=== PATIENT | male | born 1970 | race Caucasian/White ===

== ENCOUNTER → 2017-04-15 16:10 | Outpatient (CLI) | payer OTHER, SELFPAY ==
[2017-04-15 18:14] LABS: Absolute Lymphocyte Count 2.82 X10^3/ul (0.83-4.51); Absolute Neutrophil Count 4.1 X10^3/uL (2.0-7.7); Basophil# 0.06 X10^3/uL; Basophil% 0.8 % (0-1); Eosinophil# 0.14 X10^3/uL; Eosinophils% 1.8 % (0-5); Hemoglobin 14.8 g/dl (13.0-16.5); Lymphocyte # 2.82 X10^3/ul (4.0); Lymphocyte % 36.4 % (19-41); Mean Corp Hgb Conc 32.9 g/gl (32-36); Mean Corpuscular Hgb 29.1 pg (27.0-32.0); Mean Corpuscular Volume 88.6 fL (80-94); Mean Platelet Vol. 9.7 fl (6.2-12.0); Monocyte# 0.59 X10^3/uL; Monocyte% 7.6 % (0-10); Neutrophil # 4.11 X10^3/uL (2.7-7.7); Platelet Count 248 K/mm3 (150-450); Red Blood Count 5.08 M/mm3 (4.6-6.2); White Blood Count 7.8 K/mm3 (4.4-11.0)
[2017-04-15 18:17] LABS: POSITIVE COUNT NO; POSITIVE DIFFERENTIAL NO; POSITIVE MORPHOLOGY NO
[2017-04-15 18:24] LABS: AST(SGOT) 23 U/L (15-37); Alanine Aminotransfer ALT/SGPT 43 U/L (16-61); Albumin, Serum 4.2 g/dL (3.2-5.0); Alkaline Phosphatase 79 U/L (45-117); Anion Gap 7 (5-15); BUN 12 mg/dL (7-18); Calcium,Total 9.1 mg/dL (8.5-10.1); Chloride 105 mmol/L (98-107); EST Glomerular Filtration Rate 84 mL/min (>60); Est Glom Filt Rate - Afr Amer 102 mL/min (>60); Globulin 4.1 g/dL (2.2-4.2); Glucose 81 mg/dL (74-106); Potassium 4.4 mmol/L (3.5-5.1); Protein, Total 8.3 g/dL (6.4-8.2); Sodium Level 140 mmol/L (136-145)
== END ==
PROVIDERS: Family Provider Family Medicine; PCP Family Medicine; Visit Provider Internal Medicine Rheumatology
DX: M06.4 Inflammatory polyarthropathy (principal); I10 Essential (primary) hypertension; M21.40 Flat foot [pes planus] (acquired), unspecified foot
CPT/HCPCS: 36415; 80053; 85025

== ENCOUNTER → 2017-07-26 14:18 | Outpatient (CLI) | payer OTHER, SELFPAY ==
--- NOTE | 2017-07-26 14:19 | RAD_ITS ---
STUDY: X-RAY - THORACIC SPINE REASON FOR EXAM: Male, 47 years old. Right side, mid back pain, TECHNIQUE: 3 view(s) of the thoracic spine were obtained. COMPARISON: None. FINDINGS: Normal kyphosis of the thoracic spine. There is no substantial scoliosis. Normal thoracic vertebrae and endplates. Normal disc space heights. The soft tissue structures are unremarkable. RAD/Thoracic Spine 3 Views IMPRESSION: Normal x-ray examination of the thoracic spine. Electronically Signed: Lili Washington MD at 15:22 EDT Tel , Service support ,
== END ==
PROVIDERS: Family Provider Family Medicine; PCP Family Medicine; Visit Provider Family Medicine
DX: R10.9 Unspecified abdominal pain (principal); M51.34 Other intervertebral disc degeneration, thoracic region
CPT/HCPCS: 72072

== ENCOUNTER → 2017-08-04 07:41 | Outpatient (CLI) | payer OTHER, SELFPAY ==
--- NOTE | 2017-08-04 07:50 | US_ITS ---
STUDY: RENAL ULTRASOUND - COMPLETE REASON FOR EXAM: Male, 47 years old. Flank pain TECHNIQUE: Ultrasound evaluation of the kidneys was performed with real-time and static aguilar-scale imaging. COMPARISON: None. FINDINGS: RIGHT KIDNEY: Normal location of the right kidney, which is normal in size. The right kidney measures 12.4 x 5.7 x 4.9 cm. There is a normal cortex of the right kidney. The renal cortex measures 1.8 cm. There is no right renal mass or cyst. There are no right renal calculi. There is no right hydronephrosis. DISTAL RIGHT URETER: There is non-visualization of the distal right ureter. There is no demonstrated right ureterovesical junction calculus. There is a visualized right ureteral jet. LEFT KIDNEY: Normal location of the left kidney, which is normal in size. The left kidney measures 11.9 x 5.5 x 6.4 cm. There is a normal cortex of the left kidney. The renal cortex measures 2 cm. There is no left renal mass or cyst. There is a 5 mm nonobstructing lower pole renal stone. There is no left hydronephrosis. DISTAL LEFT URETER: There is non-visualization of the distal left ureter. There is no demonstrated left ureterovesical junction calculus. There is a visualized left ureteral jet. BLADDER: The distended urinary bladder has a volume of 424 ml. The empty urinary bladder has a volume of 16 ml. There is a normal wall thickness of the distended urinary bladder. There is no demonstrated mass within the urinary bladder. There are no demonstrated bladder calculi. US/Kidney and Bladder IMPRESSION: No hydronephrosis. There is a 5 mm nonobstructing left renal stone. Bilateral ureteral jets identified. Electronically Signed: Adam Orta DO at 21:05 EDT , Service support ,
== END ==
PROVIDERS: Family Provider Family Medicine; PCP Family Medicine; Visit Provider Family Medicine
DX: R10.9 Unspecified abdominal pain (principal)
CPT/HCPCS: 76770

== ENCOUNTER → 2017-10-01 08:24 | Outpatient (CLI) | payer OTHER, SELFPAY ==
[2017-10-01 13:00] LABS: Absolute Lymphocyte Count 2.01 X10^3/ul (0.83-4.51); Absolute Neutrophil Count 4.1 X10^3/uL (2.0-7.7); Basophil# 0.04 X10^3/uL; Basophil% 0.6 % (0-1); Eosinophil# 0.14 X10^3/uL; Eosinophils% 2.1 % (0-5); Hematocrit 43.3 % (40-54); Hemoglobin 14.4 g/dl (13.0-16.5); Lymphocyte # 2.01 X10^3/ul (4.0); Lymphocyte % 29.6 % (19-41); Mean Corp Hgb Conc 33.3 g/gl (32-36); Mean Corpuscular Hgb 29.3 pg (27.0-32.0); Monocyte# 0.43 X10^3/uL; Monocyte% 6.3 % (0-10); Neutrophil # 4.13 X10^3/uL (2.7-7.7); Neutrophil % 60.7 % (47-70); Platelet Count 255 K/mm3 (150-450); RBC Distribution Width SD 41.3 fl (35.1-43.9); Red Blood Count 4.92 M/mm3 (4.6-6.2); White Blood Count 6.8 K/mm3 (4.4-11.0)
[2017-10-01 13:05] LABS: POSITIVE COUNT NO; POSITIVE DIFFERENTIAL NO; POSITIVE MORPHOLOGY NO
[2017-10-01 13:14] LABS: AST(SGOT) 22 U/L (15-37); Alanine Aminotransfer ALT/SGPT 36 U/L (16-61); Albumin, Serum 3.9 g/dL (3.2-5.0); Alkaline Phosphatase 75 U/L (45-117); Anion Gap 8 (5-15); BUN 24 mg/dL (7-18); BUN/Creat Ratio 21.2 RATIO (10-20); Chloride 106 mmol/L (98-107); Creatinine, Serum 1.13 mg/dL (0.70-1.30); EST Glomerular Filtration Rate 73 mL/min (>60); Est Glom Filt Rate - Afr Amer 89 mL/min (>60); Glucose 114 mg/dL (74-106); Potassium 4.1 mmol/L (3.5-5.1); Protein, Total 7.9 g/dL (6.4-8.2); Sodium Level 141 mmol/L (136-145)
== END ==
PROVIDERS: PCP Family Medicine; Visit Provider Internal Medicine Rheumatology
DX: M06.4 Inflammatory polyarthropathy (principal); M21.40 Flat foot [pes planus] (acquired), unspecified foot; I10 Essential (primary) hypertension
CPT/HCPCS: 36415; 80053; 85025

== ENCOUNTER 2018-01-17 06:26 | Day surgery (SDC) | payer OTHER, SELFPAY ==
[2018-01-17 06:57] VITALS: BP 152/84; PULSE 75; TEMP 36.7; O2SAT 100; BMI 41.3
[2018-01-17 07:46] VITALS: BP 104/63; BP 152/84; PULSE 69; RESP 16; TEMP 36.1; O2SAT 99
--- NOTE | 2018-01-17 07:47 | OP.ENDO_ITS ---
Patient Name: Jonh Velasquez Procedure Date: 01/17/2018 7:10 AM Date of : 1970 Age: 47 Procedure: Colonoscopy Indications: Rectal bleeding Providers: Andres Hui MD Medicines: See the Anesthesia note for documentation of the administered medications Patient Profile: Last Colonoscopy: none. The patient's first colonoscopy is today. Complications: No immediate complications. Procedure: Pre-Anesthesia Assessment: - Prior to the procedure, a History and Physical was performed, and patient medications and allergies were reviewed. The patient's tolerance of previous anesthesia was also reviewed. The risks and benefits of the procedure and the sedation options and risks were discussed with the patient. All questions were answered, and informed consent was obtained. Prior Anticoagulants: The patient has taken no previous anticoagulant or antiplatelet agents. ASA Grade Assessment: III - A patient with severe systemic disease. After reviewing the risks and benefits, the patient was deemed in satisfactory condition to undergo the procedure. After I obtained informed consent, the scope was passed under direct vision. Throughout the procedure, the patient's blood pressure, pulse, and oxygen saturations were monitored continuously. The colonoscope was introduced through the anus and advanced to the cecum, identified by appendiceal orifice and ileocecal valve. The colonoscopy was performed without difficulty. The patient tolerated the procedure well. The quality of the bowel preparation was good. Scope In: 7:31:18 AM Scope Withdrawal Time 0 hours 7 minutes 23 seconds Scope Out: 7:41:45 AM Total Procedure Duration Time 0 hours 10 minutes 27 seconds Findings: The perianal and digital rectal examinations were normal. Pertinent negatives include normal sphincter tone. No sign of a rectal fissure. Non-bleeding internal hemorrhoids were found during retroflexion. The hemorrhoids were mild and small. The exam was otherwise without abnormality. Impression: - Non-bleeding internal hemorrhoids. - The examination was otherwise normal. - No specimens collected. Recommendation: - Discharge patient to home. - Resume previous diet. - Continue present medications. - Repeat colonoscopy in 10 years for screening purposes. - Return to primary care physician PRN. Procedure Code(s): --- Professional --- 08554, Colonoscopy, flexible; diagnostic, including collection of specimen(s) by brushing or washing, when performed (separate procedure) Diagnosis Code(s): --- Professional --- K64.8, Other hemorrhoids K62.5, Hemorrhage of anus and rectum CPT copyright 2017 [employer]. All rights reserved. The codes documented in this report are preliminary and upon automatic spooler operator review may be revised to meet current compliance requirements. MD Andres Montgomery MD 01/17/2018 7:46:45 AM This report has been signed electronically. Number of Addenda: 0 Note Initiated On: 01/17/2018 7:10 AM
[2018-01-17 07:50] VITALS: BP 108/64; BP 152/84; PULSE 70; RESP 16; O2SAT 94
[2018-01-17 07:55] VITALS: BP 109/70; BP 152/84; PULSE 74; RESP 16; O2SAT 95
[2018-01-17 08:00] VITALS: BP 108/62; BP 152/84; PULSE 70; RESP 16; TEMP 36.6; O2SAT 94
[2018-01-17 08:09] VITALS: BP 152/84
== END 2018-01-17 08:19 | disposition home or self-care (01) ==
LOC: EN 06:28 → AC 06:28
PROVIDERS: Family Provider Family Medicine; PCP Family Medicine; Referring Provider Surgery; Visit Provider Surgery
PROC: 0DJD8ZZ Inspection of Lower Intestinal Tract, Via Natural or Artificial Opening Endoscopic (ICD-10-PCS; CPT 45378; principal; 2018-01-17 07:25)
DX: K62.5 Hemorrhage of anus and rectum (principal); K64.8 Other hemorrhoids; I10 Essential (primary) hypertension
CPT/HCPCS: 45378; J7120

== ENCOUNTER → 2018-04-28 09:08 | Outpatient (CLI) | payer OTHER, SELFPAY ==
[2018-04-28 12:03] LABS: Absolute Lymphocyte Count 1.25 X10^3/ul (0.83-4.51); Absolute Neutrophil Count 2.1 X10^3/uL (2.0-7.7); Basophil# 0.01 X10^3/uL; Basophil% 0.3 % (0-1); Eosinophil# 0.02 X10^3/uL; Eosinophils% 0.5 % (0-5); Hematocrit 46.7 % (40-54); Hemoglobin 14.9 g/dl (13.0-16.5); Lymphocyte # 1.25 X10^3/ul (4.0); Lymphocyte % 33.1 % (19-41); Mean Corp Hgb Conc 31.9 g/gl (32-36); Mean Corpuscular Volume 87.6 fL (80-94); Mean Platelet Vol. 10.2 fl (6.2-12.0); Monocyte# 0.44 X10^3/uL; Monocyte% 11.6 % (0-10); Neutrophil # 2.05 X10^3/uL (2.7-7.7); Neutrophil % 54.2 % (47-70); Platelet Count 178 K/mm3 (150-450); RBC Distribution Width CV 13.2 % (11.6-14.6); Red Blood Count 5.33 M/mm3 (4.6-6.2); White Blood Count 3.8 K/mm3 (4.4-11.0)
[2018-04-28 12:04] LABS: POSITIVE COUNT NO; POSITIVE DIFFERENTIAL NO; POSITIVE MORPHOLOGY NO
[2018-04-28 12:22] LABS: ALB/GLOB Ratio 0.9 RATIO (0.9-2.4); AST(SGOT) 28 U/L (15-37); Alanine Aminotransfer ALT/SGPT 32 U/L (16-61); Albumin, Serum 3.8 g/dL (3.2-5.0); Alkaline Phosphatase 77 U/L (45-117); Anion Gap 11 (5-15); BUN 15 mg/dL (7-18); BUN/Creat Ratio 13.8 RATIO (10-20); Calcium,Total 8.6 mg/dL (8.5-10.1); Chloride 103 mmol/L (98-107); Creatinine, Serum 1.09 mg/dL (0.70-1.30); EST Glomerular Filtration Rate 76 mL/min (>60); Est Glom Filt Rate - Afr Amer 92 mL/min (>60); Globulin 4.3 g/dL (2.2-4.2); Glucose 91 mg/dL (74-106); Potassium 3.7 mmol/L (3.5-5.1); Protein, Total 8.1 g/dL (6.4-8.2); Sodium Level 138 mmol/L (136-145)
== END ==
PROVIDERS: Family Provider Family Medicine; PCP Family Medicine; Visit Provider Internal Medicine Rheumatology
DX: M06.4 Inflammatory polyarthropathy (principal); M21.40 Flat foot [pes planus] (acquired), unspecified foot; I10 Essential (primary) hypertension
CPT/HCPCS: 36415; 80053; 85025

== ENCOUNTER → 2018-10-13 08:27 | Outpatient (CLI) | payer OTHER, SELFPAY ==
[2018-10-13 12:15] LABS: Absolute Lymphocyte Count 1.84 X10^3/uL (0.83-4.51); Absolute Neutrophil Count 2.7 X10^3/uL (2.0-7.7); Basophil# 0.03 X10^3/uL; Basophil% 0.6 % (0-1); Eosinophil# 0.09 X10^3/uL; Eosinophils% 1.7 % (0-5); Lymphocyte # 1.84 X10^3/ul (4.0); Lymphocyte % 35.7 % (19-41); Mean Corp Hgb Conc 33.3 g/dL (32-36); Mean Corpuscular Hgb 29.2 pg (27.0-32.0); Mean Corpuscular Volume 87.7 fL (80-94); Mean Platelet Vol. 10.3 fl (6.2-12.0); Monocyte# 0.43 X10^3/uL; Monocyte% 8.3 % (0-10); NRBC Flagged by Analyzer 0 % (0-5); Neutrophil # 2.74 X10^3/uL (2.7-7.7); Neutrophil % 53.1 % (47-70); Platelet Count 193 K/mm3 (150-450); RBC Distribution Width CV 12.7 % (11.6-14.6); RBC Distribution Width SD 40.8 fl (35.1-43.9); Red Blood Count 5.13 M/mm3 (4.6-6.2); White Blood Count 5.2 K/mm3 (4.4-11.0)
[2018-10-13 12:29] LABS: ALB/GLOB Ratio 1.1 RATIO (0.9-2.4); AST(SGOT) 23 U/L (15-37); Alanine Aminotransfer ALT/SGPT 38 U/L (16-61); Albumin, Serum 4.1 g/dL (3.2-5.0); Alkaline Phosphatase 79 U/L (45-117); Anion Gap 7 (5-15); BUN 18 mg/dL (7-18); Calcium,Total 9.4 mg/dL (8.5-10.1); Chloride 105 mmol/L (98-107); EST Glomerular Filtration Rate 84 mL/min (>60); Est Glom Filt Rate - Afr Amer 102 mL/min (>60); Globulin 3.7 g/dL (2.2-4.2); Glucose 94 mg/dL (74-106); Potassium 4.1 mmol/L (3.5-5.1); Protein, Total 7.8 g/dL (6.4-8.2); Sodium Level 139 mmol/L (136-145)
== END ==
PROVIDERS: Family Provider Family Medicine; PCP Family Medicine; Visit Provider Internal Medicine Rheumatology
DX: M06.4 Inflammatory polyarthropathy (principal); M21.40 Flat foot [pes planus] (acquired), unspecified foot; I10 Essential (primary) hypertension
CPT/HCPCS: 36415; 80053; 85025

== ENCOUNTER → 2019-04-03 14:15 | Outpatient (CLI) | payer OTHER, SELFPAY ==
[2019-04-03 17:20] LABS: Absolute Lymphocyte Count 2.37 X10^3/uL (0.83-4.51); Absolute Neutrophil Count 4.5 X10^3/uL (2.0-7.7); Basophil# 0.05 X10^3/uL; Basophil% 0.7 % (0-1); Eosinophils% 1.3 % (0-5); Hematocrit 44.7 % (40-54); Hemoglobin 14.6 g/dL (13.0-16.5); Lymphocyte # 2.37 X10^3/ul (4.0); Lymphocyte % 31.5 % (19-41); Mean Corp Hgb Conc 32.7 g/dL (32-36); Mean Corpuscular Hgb 28.7 pg (27.0-32.0); Mean Corpuscular Volume 87.8 fL (80-94); Mean Platelet Vol. 9.6 fl (6.2-12.0); Monocyte# 0.45 X10^3/uL; NRBC Flagged by Analyzer 0 % (0-5); Neutrophil # 4.54 X10^3/uL (2.7-7.7); Neutrophil % 60.2 % (47-70); Platelet Count 243 K/mm3 (150-450); RBC Distribution Width CV 12.4 % (11.6-14.6); RBC Distribution Width SD 39.6 fl (35.1-43.9); Red Blood Count 5.09 M/mm3 (4.6-6.2); White Blood Count 7.5 K/mm3 (4.4-11.0)
[2019-04-03 17:49] LABS: ALB/GLOB Ratio 1.1 RATIO (0.9-2.4); AST(SGOT) 20 U/L (15-37); Alanine Aminotransfer ALT/SGPT 35 U/L (16-61); Albumin, Serum 3.9 g/dL (3.2-5.0); Alkaline Phosphatase 74 U/L (45-117); Anion Gap 4 (5-15); BUN 14 mg/dL (7-18); BUN/Creat Ratio 13.5 RATIO (10-20); Calcium,Total 9.4 mg/dL (8.5-10.1); Chloride 105 mmol/L (98-107); Creatinine, Serum 1.04 mg/dL (0.70-1.30); EST Glomerular Filtration Rate 80 mL/min (>60); Est Glom Filt Rate - Afr Amer 97 mL/min (>60); Globulin 3.7 g/dL (2.2-4.2); Glucose 113 mg/dL (74-106); Potassium 3.8 mmol/L (3.5-5.1); Protein, Total 7.6 g/dL (6.4-8.2); Sodium Level 140 mmol/L (136-145)
== END ==
PROVIDERS: PCP Family Medicine; Visit Provider Internal Medicine Rheumatology
DX: M06.4 Inflammatory polyarthropathy (principal); M21.40 Flat foot [pes planus] (acquired), unspecified foot; I10 Essential (primary) hypertension
CPT/HCPCS: 36415; 80053; 85025

== ENCOUNTER → 2019-09-29 | Outpatient (CLI) | payer OTHER, SELFPAY ==
[2019-09-29 15:29] LABS: Absolute Lymphocyte Count 2.95 X10^3/uL (0.83-4.51); Absolute Neutrophil Count 4.7 X10^3/uL (2.0-7.7); Basophil# 0.08 X10^3/uL; Basophil% 0.9 % (0-1); Eosinophil# 0.12 X10^3/uL; Eosinophils% 1.4 % (0-5); Hematocrit 46.1 % (40-54); Hemoglobin 15.1 g/dL (13.0-16.5); Lymphocyte # 2.95 X10^3/ul (4.0); Lymphocyte % 34.2 % (19-41); Mean Corp Hgb Conc 32.8 g/dL (32-36); Mean Corpuscular Hgb 29.4 pg (27.0-32.0); Mean Corpuscular Volume 89.7 fL (80-94); Mean Platelet Vol. 9.7 fl (6.2-12.0); Monocyte# 0.67 X10^3/uL; Monocyte% 7.8 % (0-10); NRBC Flagged by Analyzer 0 % (0-5); Neutrophil # 4.74 X10^3/uL (2.7-7.7); Platelet Count 267 K/mm3 (150-450); RBC Distribution Width CV 12.9 % (11.6-14.6); RBC Distribution Width SD 41.8 fl (35.1-43.9); Red Blood Count 5.14 M/mm3 (4.6-6.2); White Blood Count 8.6 K/mm3 (4.4-11.0)
[2019-09-29 15:47] LABS: AST(SGOT) 22 U/L (15-37); Alanine Aminotransfer ALT/SGPT 41 U/L (16-61); Albumin, Serum 4.1 g/dL (3.2-5.0); Alkaline Phosphatase 73 U/L (45-117); Anion Gap 6 (5-15); BUN 16 mg/dL (7-18); BUN/Creat Ratio 15.5 RATIO (10-20); Calcium,Total 9.6 mg/dL (8.5-10.1); Chloride 102 mmol/L (98-107); Creatinine, Serum 1.03 mg/dL (0.70-1.30); EST Glomerular Filtration Rate 81 mL/min (>60); Est Glom Filt Rate - Afr Amer 98 mL/min (>60); Glucose 84 mg/dL (74-106); Potassium 4.2 mmol/L (3.5-5.1); Protein, Total 8.1 g/dL (6.4-8.2); Sodium Level 136 mmol/L (136-145)
== END | disposition home or self-care (01) ==
LOC: BFHLAB 13:07
PROVIDERS: PCP Family Medicine; Visit Provider Internal Medicine Rheumatology
DX: M06.4 Inflammatory polyarthropathy (principal); M21.40 Flat foot [pes planus] (acquired), unspecified foot; I10 Essential (primary) hypertension
CPT/HCPCS: 36415; 80053; 85025

== ENCOUNTER → 2019-10-27 | Outpatient (CLI) | payer OTHER, SELFPAY ==
--- NOTE | 2019-10-27 13:00 | RAD_ITS ---
HISTORY: dyspnea on exertion EXAM: XR Chest 2 Views: COMPARISON: January 08, 2016 FINDINGS: # of images incl. paperwork: 2 Lungs are clear. Heart is not enlarged. No acute osseous pathology perceived. Pulmonary vascularity is distinct. No effusions. RAD/Chest PA and Lateral IMPRESSION: Normal. at 0555 Reported and signed by: Sigifredo Razo MD Electronically Signed: Sigifredo Razo MD at 5:53 EDT Tel , Service support ,
== END | disposition home or self-care (01) ==
LOC: MTRAD 12:59
PROVIDERS: PCP Family Medicine; Referring Provider Family Medicine; Visit Provider Family Medicine
DX: R06.00 Dyspnea, unspecified (principal)
CPT/HCPCS: 71046

== ENCOUNTER → 2020-03-20 | Outpatient (CLI) | payer OTHER, SELFPAY | END | disposition home or self-care (01) | LOC: LABSPEC 13:34 | PROVIDERS: PCP Family Medicine; Visit Provider Surgery | DX: L02.212 Cutaneous abscess of back [any part, except buttock and flank] (principal) | CPT/HCPCS: 87070; 87205 ==

== ENCOUNTER 2020-04-02 12:46 | Day surgery (SDC) | payer OTHER, SELFPAY ==
[2020-04-02] VITALS (7 sets, daily range): BP systolic 84–128; BP diastolic 40–80; PULSE 69–80; RESP 16–18; TEMP 36.1–36.6; O2SAT 94–100; BMI 41.8
--- NOTE | 2020-04-02 06:36 | HP_ITS ---
Intake Intake Visit Reasons: F/U SEBACEOUS CYST Chief Complaint: wound check/ packing change [employer] Operator Required: No Is patient in pain?: No Allergies No Known Allergies Allergy (Verified 03/29/20 15:26) Subjective Details: Patient still has drainage from his back abscess with purulence Objective Details: The patient has inflammation around the back abscess with purulent drainage and the patient still has packing in place. Assessment & Plan Problems 1. Infected sebaceous cyst L72.3; L08.9 Plan The patient has an infected sebaceous cyst of the back. After incision and drainage and packing the patient still has purulent drainage and erythema. He did complete his dose of antibiotics. I would like to perform a formal incision and debridement and resection of the cyst. I discussed that I would do this in the operating room next week. I also discussed that I may pack the wound after excision and drainage. Patient understands the risks and is willing to proceed. Del Arauz MD Pager: [facility] [address] [place] [address], [address] [place] [address] Office: Coding Level of Care Code Off vis,est,level 2 Diagnoses Infected sebaceous cyst L72.3; L08.9 I have re-examined the patient. There are no clinical changes since date of exam.
[2020-04-02] MEDS: Lactated Ringers 1,000 ML 100 ML IV (13:22)
--- NOTE | 2020-04-02 14:30 | CYST_PTH ---
PATIENT: LYN SANCHEZ LOC: [facility] [place] U#:[id number] AGE/SX: 49/M ROOM: RE04/02/[address]: Dr. Del Arauz MD : 1970 BED: DIS: 04/02/2020 SPEC #: [id number] RECD: 04/03/20 07:27 STATUS: NICOLAS VERA #: [id number] RENÉ: 04/02/20 14:[address]: Del Arauz DEPT: SURGICAL PATHOLOGY RECD BY: Princess Bauer ENTERED: 04/03/20 08:07 SP TYPE: Cyst OTHR DR: Dr. Vikram Robles MD Tissues: CYST Procedures: Special Stain Group I Surgery Specimen Level IV AFB Stain (control) GMS Stain (control) HEADER OPERATION: Excision benign lesion subcutaneous back PRE-OP DIAGNOSIS: Infected sebaceous cyst, back TISSUE SUBMITTED: Sebaceous cyst, back MICROSCOPIC DIAGNOSIS Skin and soft tissue of back, excision: Granulation with associated acute and chronic inflammation. Fibrosis. Negative for acid-fast bacilli and fungal organisms. See comment. AM:sharla 04/04/2020 COMMENT AFB and GMS stains with matched controls were used in the evaluation of this case. MICROSCOPIC DESCRIPTION Slides are reviewed. GROSS DESCRIPTION Received in fixative is one container labeled with the patient's name and designated sebaceous cyst back. The specimen consists of an irregular fragment of yellow fatty tissue measuring 2.6 x 1.7 x 1 cm. The external surface is inked and the specimen is serially sectioned to reveal homogenous yellow cut surfaces with focal chalky, yellow discoloration. The specimen is serially sectioned and totally submitted in two cassettes. / AM:sharla 04/03/20 TC:2 CPT: 09332, 24548 x2
[2020-04-02] MEDS: Cefazolin 2 GM in 0.9% Normal Saline 100 ML IV (14:41)
[2020-04-02] MEDS: Bupivacaine Mpf 0.5% 30 ML VIAL (14:50)
--- NOTE | 2020-04-02 15:13 | PCM.OPRPT ---
Problem List (1) Infected cyst of skin Status: Acute Report of Operation Date of Procedure: 04/02/20 Pre-Operative Diagnosis: Infected cyst of the back Post-Operative Diagnosis: Same Surgery/Procedure Performed:: Excision of infected back cyst with packing Specimen's removed: Back cyst Description of Procedure: Patient was brought back to the operating room and MAC anesthesia was induced. The back was prepped and draped in usual sterile fashion. The packing was removed from the abscess cavity. The skin around the prior incision was anesthetized with local anesthetic. A scalpel was used to make an elliptical incision around the prior incision and this was deepened to the subcutaneous tissue. The area was retracted and using electrocautery the cyst was dissected free from the surrounding tissue. The cavity was irrigated and suctioned dry and cautery was used to maintain hemostasis. There appeared to be healthy tissue all around and all of the infected inflamed tissue was removed. The cavity was packed with 1 inch iodoform gauze and dressed. Patient tolerated the procedure well and was brought back in stable condition. Grafts/Implants Used: 1 iodoform gauze packing
--- NOTE | 2020-04-02 15:15 | DCINST_ITS ---
- Discharge Diagnoses Current Active Problems: Current Active and Chronic Problems (Last Reviewed 03/20/20 @ 08:45 by Cordelia Bertrand) Infected cyst of skin (Acute) You will use the following diet at home:: Regular Your food should be the consistency of: Regular Your liquids should be the consistency of: Regular/Thin Discharge Activity: Return to Normal Activity, May Shower Call your doctor if your incision/area has: Continuous Slow Oozing, Sudden Increased Bleeding, Increased Pain/ Swelling, Increased Redness, Foul Smelling Discharge, Swelling at the incision site Call your doctor if you observe: Fever of 101 or Higher Remove Dressing in (days):: 2 - Remove dressing and packing in 2 days unless saturated, if so change earlier Additional Dressing/Incision Instructions:: Remove or change the dressing in 2 days and remove the packing in 2 to 3 days. Change dressings as needed Allergies/Adverse Reactions: Allergies No Known Allergies Allergy (Verified 03/29/20 15:26) Medications to take at Discharge hydrochlorothiazide 12.5 mg tablet 12.5 mg PO DAILY 12/24/17 lisinopril 40 mg tablet 40 mg PO DAILY 12/24/17 Hydroxychloroquine [Plaquenil] 400 mg PO DAILY 01/14/18 allopurinol 100 mg tablet 100 mg PO DAILY tab 03/20/20 Amoxicillin/Potassium Clav [Augmentin 875-125 Tablet] 1 ea PO BID #14 tab 04/02/20 Oxycodone HCl/Acetaminophen [Percocet 5-325 mg Tablet] 1 - 2 tab PO Q6H PRN PRN 5 Days #20 tablet 04/02/20 The following prescriptions were given: Amoxicillin/Potassium Clav [Augmentin 875-125 Tablet] 1 ea PO BID #14 tab Transmission Status: Pending to [facility] Oxycodone HCl/Acetaminophen [Percocet 5-325 mg Tablet] 1 - 2 tab PO Q6H PRN PRN 5 Days #20 tablet PRN Reason: Pain Score 4-10/10 Transmission Status: Sent to [facility] Primary Care Physician: Vikram Robles MD [Primary Care Provider] - Test Results: Test results from this visit will be discussed in further detail at your follow- up appointment, if applicable. Please Follow Up With: Del Arauz MD When: Please call to schedule 1 week follow up appointment. [phone]
[2020-04-02] MEDS: oxyCODONE 5 MG Tablet 10 MG PO (16:04)
[2020-04-02] MEDS: Acetaminophen 325 MG Tablet 650 MG PO (16:04)
== END 2020-04-02 16:15 | disposition home or self-care (01) ==
LOC: SDC 12:47 → AC 12:51
PROVIDERS: PCP Family Medicine; Referring Provider Surgery; Visit Provider Surgery
PROC: (CPT 11403; principal; 2020-04-02 14:20)
DX: L72.3 Sebaceous cyst (principal); L90.5 Scar conditions and fibrosis of skin; L08.9 Local infection of the skin and subcutaneous tissue, unspecified; I10 Essential (primary) hypertension; Z79.899 Other long term (current) drug therapy; Z20.822 Contact with and (suspected) exposure to COVID-19
CPT/HCPCS: 11403; 87426; 88304; 88305; 88312; C9803; J7120; J2405

== ENCOUNTER → 2020-04-05 10:47 | Outpatient (CLI) | payer OTHER, SELFPAY ==
[2020-04-02 13:17] VITALS: BMI 41.8
[2020-04-05 12:02] LABS: Absolute Neutrophil Count 3.5 X10^3/uL (2.0-7.7); Basophil# 0.04 X10^3/uL; Basophil% 0.7 % (0-1); Eosinophil# 0.09 X10^3/uL; Eosinophils% 1.5 % (0-5); Hematocrit 44.3 % (40-54); Hemoglobin 14.3 g/dL (13.0-16.5); Lymphocyte % 31.3 % (19-41); Mean Corp Hgb Conc 32.3 g/dL (32-36); Mean Corpuscular Volume 86.7 fL (80-94); Mean Platelet Vol. 9.8 fl (6.2-12.0); Monocyte% 8.2 % (0-10); NRBC Flagged by Analyzer 0 % (0-5); Neutrophil # 3.52 X10^3/uL (2.7-7.7); Platelet Count 261 K/mm3 (150-450); RBC Distribution Width CV 12.8 % (11.6-14.6); RBC Distribution Width SD 40.5 fl (35.1-43.9); Red Blood Count 5.11 M/mm3 (4.6-6.2); White Blood Count 6.1 K/mm3 (4.4-11.0)
[2020-04-05 12:42] LABS: ALB/GLOB Ratio 0.9 RATIO (0.9-2.4); AST(SGOT) 22 U/L (15-37); Alanine Aminotransfer ALT/SGPT 30 U/L (16-61); Albumin, Serum 3.8 g/dL (3.2-5.0); Alkaline Phosphatase 82 U/L (45-117); Anion Gap 7 (5-15); BUN 15 mg/dL (7-18); BUN/Creat Ratio 16.3 RATIO (10-20); Calcium,Total 9.3 mg/dL (8.5-10.1); Chloride 105 mmol/L (98-107); Creatinine, Serum 0.92 mg/dL (0.70-1.30); EST Glomerular Filtration Rate 92 mL/min (>60); Est Glom Filt Rate - Afr Amer 111 mL/min (>60); Globulin 4.1 g/dL (2.2-4.2); Glucose 91 mg/dL (74-106); Potassium 4.4 mmol/L (3.5-5.1); Protein, Total 7.9 g/dL (6.4-8.2); Sodium Level 137 mmol/L (136-145); Uric Acid 5.7 mg/dL (3.5-7.2)
== END ==
PROVIDERS: PCP Family Medicine; Visit Provider Internal Medicine Rheumatology
DX: I10 Essential (primary) hypertension (principal); M06.4 Inflammatory polyarthropathy; M21.40 Flat foot [pes planus] (acquired), unspecified foot
CPT/HCPCS: 36415; 80053; 84550; 85025

== ENCOUNTER → 2020-07-02 13:22 | Outpatient (CLI) | payer OTHER, SELFPAY ==
[2020-04-02 13:17] VITALS: BMI 41.8
[2020-07-02 15:00] LABS: Absolute Lymphocyte Count 1.73 X10^3/uL (0.83-4.51); Absolute Neutrophil Count 7.8 X10^3/uL (2.0-7.7); Basophil# 0.03 X10^3/uL; Basophil% 0.3 % (0-1); Eosinophil# 0.09 X10^3/uL; Eosinophils% 0.9 % (0-5); Hemoglobin 15.9 g/dL (13.0-16.5); Lymphocyte # 1.73 X10^3/ul (0.83-4.51); Lymphocyte % 16.8 % (19-41); Mean Corp Hgb Conc 32.4 g/dL (32-36); Mean Corpuscular Hgb 28.5 pg (27.0-32.0); Mean Corpuscular Volume 87.8 fL (80-94); Mean Platelet Vol. 9.9 fl (6.2-12.0); Monocyte# 0.66 X10^3/uL; Monocyte% 6.4 % (0-10); NRBC Flagged by Analyzer 0 % (0-5); Neutrophil # 7.77 X10^3/uL (2.7-7.7); Neutrophil % 75.3 % (47-70); Platelet Count 270 K/mm3 (150-450); RBC Distribution Width CV 13.2 % (11.6-14.6); RBC Distribution Width SD 42.7 fl (35.1-43.9); Red Blood Count 5.58 M/mm3 (4.6-6.2); White Blood Count 10.3 K/mm3 (4.4-11.0)
[2020-07-02 15:39] LABS: ALB/GLOB Ratio 1.2 RATIO (0.9-2.4); AST(SGOT) 23 U/L (15-37); Alanine Aminotransfer ALT/SGPT 34 U/L (16-61); Albumin, Serum 4.5 g/dL (3.2-5.0); Alkaline Phosphatase 93 U/L (45-117); Anion Gap 7 (5-15); BUN 17 mg/dL (7-18); BUN/Creat Ratio 17.5 RATIO (10-20); Calcium,Total 9.6 mg/dL (8.5-10.1); Chloride 102 mmol/L (98-107); Creatinine, Serum 0.97 mg/dL (0.70-1.30); EST Glomerular Filtration Rate 86 mL/min (>60); Est Glom Filt Rate - Afr Amer 105 mL/min (>60); Globulin 3.8 g/dL (2.2-4.2); Glucose 88 mg/dL (74-106); Potassium 4.1 mmol/L (3.5-5.1); Protein, Total 8.3 g/dL (6.4-8.2); Sodium Level 136 mmol/L (136-145)
== END ==
PROVIDERS: PCP Family Medicine; Referring Provider Internal Medicine Rheumatology; Visit Provider Internal Medicine Rheumatology
DX: M06.4 Inflammatory polyarthropathy (principal); M21.40 Flat foot [pes planus] (acquired), unspecified foot; I10 Essential (primary) hypertension
CPT/HCPCS: 36415; 80053; 85025

== ENCOUNTER 2021-03-13 08:27 | Outpatient (CLI) | payer OTHER, SELFPAY ==
[2021-03-13 10:22] LABS: Absolute Lymphocyte Count 1.99 X10^3/uL (0.83-4.51); Absolute Neutrophil Count 3.6 X10^3/uL (2.0-7.7); Basophil# 0.06 X10^3/uL; Basophil% 0.9 % (0-1); Eosinophil# 0.17 X10^3/uL; Eosinophils% 2.7 % (0-5); Hematocrit 46.4 % (40-54); Hemoglobin 15.4 g/dL (13.0-16.5); Lymphocyte # 1.99 X10^3/ul (0.83-4.51); Lymphocyte % 31.2 % (19-41); Mean Corp Hgb Conc 33.2 g/dL (32-36); Mean Corpuscular Hgb 29.2 pg (27.0-32.0); Mean Platelet Vol. 9.6 fl (6.2-12.0); Monocyte# 0.52 X10^3/uL; Monocyte% 8.2 % (0-10); NRBC Flagged by Analyzer 0 % (0-5); Neutrophil # 3.58 X10^3/uL (2.7-7.7); Neutrophil % 56.1 % (47-70); Platelet Count 260 K/mm3 (150-450); RBC Distribution Width CV 12.3 % (11.6-14.6); RBC Distribution Width SD 39.9 fl (35.1-43.9); Red Blood Count 5.27 M/mm3 (4.6-6.2); White Blood Count 6.4 K/mm3 (4.4-11.0)
[2021-03-13 10:49] LABS: AST(SGOT) 28 U/L (15-37); Alanine Aminotransfer ALT/SGPT 47 U/L (16-61); Alkaline Phosphatase 71 U/L (45-117); Anion Gap 9 (5-15); BUN 22 mg/dL (7-18); BUN/Creat Ratio 21.8 RATIO (10-20); Calcium,Total 9.5 mg/dL (8.5-10.1); Chloride 104 mmol/L (98-107); Creatinine, Serum 1.01 mg/dL (0.70-1.30); EST Glomerular Filtration Rate 82 mL/min (>60); Est Glom Filt Rate - Afr Amer 99 mL/min (>60); Glucose 112 mg/dL (74-106); Potassium 4.2 mmol/L (3.5-5.1); Sodium Level 138 mmol/L (136-145)
== END 2021-03-13 23:59 | disposition short-term general hospital (02) ==
LOC: MTLAB 08:29
PROVIDERS: PCP Family Medicine; Referring Provider Internal Medicine Rheumatology; Visit Provider Internal Medicine Rheumatology
DX: M06.4 Inflammatory polyarthropathy (principal); Z79.899 Other long term (current) drug therapy; M21.40 Flat foot [pes planus] (acquired), unspecified foot; I10 Essential (primary) hypertension
CPT/HCPCS: 36415; 80053; 85025

== ENCOUNTER → 2021-09-09 | Outpatient (CLI) | payer OTHER, SELFPAY ==
[2021-09-09 12:40] LABS: Absolute Lymphocyte Count 2.13 X10^3/uL (0.83-4.51); Absolute Neutrophil Count 3.9 X10^3/uL (2.0-7.7); Basophil# 0.06 X10^3/uL; Basophil% 0.9 % (0-1); Eosinophil# 0.11 X10^3/uL; Eosinophils% 1.6 % (0-5); Hematocrit 40.8 % (40-54); Hemoglobin 13.5 g/dL (13.0-16.5); Lymphocyte # 2.13 X10^3/ul (0.83-4.51); Lymphocyte % 31.8 % (19-41); Mean Corp Hgb Conc 33.1 g/dL (32-36); Mean Corpuscular Hgb 29.4 pg (27.0-32.0); Mean Corpuscular Volume 88.9 fL (80-94); Monocyte# 0.49 X10^3/uL; Monocyte% 7.3 % (0-10); NRBC Flagged by Analyzer 0 % (0-5); Neutrophil # 3.89 X10^3/uL (2.7-7.7); Neutrophil % 58.1 % (47-70); Platelet Count 220 K/mm3 (150-450); RBC Distribution Width CV 12.5 % (11.6-14.6); RBC Distribution Width SD 40.5 fl (35.1-43.9); Red Blood Count 4.59 M/mm3 (4.6-6.2); White Blood Count 6.7 K/mm3 (4.4-11.0)
[2021-09-09 13:00] LABS: AST(SGOT) 20 U/L (15-37); Alanine Aminotransfer ALT/SGPT 28 U/L (16-61); Albumin, Serum 3.7 g/dL (3.2-5.0); Alkaline Phosphatase 105 U/L (45-117); Anion Gap 4 (5-15); BUN 15 mg/dL (7-18); BUN/Creat Ratio 15.7 RATIO (10-20); Chloride 107 mmol/L (98-107); Creatinine, Serum 0.96 mg/dL (0.70-1.30); EST Glomerular Filtration Rate 88 mL/min (>60); Est Glom Filt Rate - Afr Amer 106 mL/min (>60); Globulin 3.6 g/dL (2.2-4.2); Glucose 104 mg/dL (74-106); Potassium 4.1 mmol/L (3.5-5.1); Protein, Total 7.3 g/dL (6.4-8.2); Sodium Level 138 mmol/L (136-145)
== END | disposition home or self-care (01) ==
LOC: MTLAB 09:52
PROVIDERS: PCP Family Medicine; Referring Provider Internal Medicine Rheumatology; Visit Provider Internal Medicine Rheumatology
DX: M06.4 Inflammatory polyarthropathy (principal); M21.40 Flat foot [pes planus] (acquired), unspecified foot; I10 Essential (primary) hypertension; Z79.899 Other long term (current) drug therapy
CPT/HCPCS: 36415; 80053; 85025

== ENCOUNTER → 2022-02-12 | Outpatient (CLI) | payer OTHER, SELFPAY ==
[2022-02-12 10:01] LABS: Absolute Lymphocyte Count 2.11 X10^3/uL (0.83-4.51); Absolute Neutrophil Count 3.2 X10^3/uL (2.0-7.7); Basophil# 0.06 X10^3/uL; Eosinophil# 0.19 X10^3/uL; Eosinophils% 3.1 % (0-5); Hematocrit 46.3 % (40-54); Hemoglobin 15.3 g/dL (13.0-16.5); Lymphocyte # 2.11 X10^3/ul (0.83-4.51); Lymphocyte % 34.8 % (19-41); Mean Corpuscular Hgb 29.4 pg (27.0-32.0); Mean Corpuscular Volume 88.9 fL (80-94); Mean Platelet Vol. 9.7 fl (6.2-12.0); Monocyte# 0.45 X10^3/uL; Monocyte% 7.4 % (0-10); NRBC Flagged by Analyzer 0 % (0-5); Neutrophil # 3.23 X10^3/uL (2.7-7.7); Neutrophil % 53.2 % (47-70); Platelet Count 252 K/mm3 (150-450); RBC Distribution Width CV 12.5 % (11.6-14.6); RBC Distribution Width SD 40.6 fl (35.1-43.9); Red Blood Count 5.21 M/mm3 (4.6-6.2); White Blood Count 6.1 K/mm3 (4.4-11.0)
[2022-02-12 10:44] LABS: ALB/GLOB Ratio 1.2 RATIO (0.9-2.4); AST(SGOT) 19 U/L (15-37); Alanine Aminotransfer ALT/SGPT 34 U/L (16-61); Albumin, Serum 4.1 g/dL (3.2-5.0); Alkaline Phosphatase 81 U/L (45-117); Anion Gap 7 (5-15); BUN 20 mg/dL (7-18); Calcium,Total 9.7 mg/dL (8.5-10.1); Chloride 104 mmol/L (98-107); Creatinine, Serum 1.05 mg/dL (0.70-1.30); EST Glomerular Filtration Rate 78 mL/min (>60); Est Glom Filt Rate - Afr Amer 95 mL/min (>60); Globulin 3.5 g/dL (2.2-4.2); Glucose 132 mg/dL (74-106); Potassium 4.1 mmol/L (3.5-5.1); Protein, Total 7.6 g/dL (6.4-8.2); Sodium Level 140 mmol/L (136-145)
== END | disposition home or self-care (01) ==
LOC: MTLAB 08:03
PROVIDERS: PCP Family Medicine; Referring Provider Internal Medicine Rheumatology; Visit Provider Internal Medicine Rheumatology
DX: M06.4 Inflammatory polyarthropathy (principal); M21.40 Flat foot [pes planus] (acquired), unspecified foot; I10 Essential (primary) hypertension; Z79.899 Other long term (current) drug therapy
CPT/HCPCS: 36415; 80053; 85025

== ENCOUNTER → 2022-07-31 | Outpatient (CLI) | payer OTHER, SELFPAY ==
[2022-07-31 10:17] LABS: Absolute Lymphocyte Count 2.28 X10^3/uL (0.83-4.51); Absolute Neutrophil Count 3.3 X10^3/uL (2.0-7.7); Basophil# 0.07 X10^3/uL; Basophil% 1.1 % (0-1); Eosinophil# 0.16 X10^3/uL; Eosinophils% 2.5 % (0-5); Hematocrit 45.5 % (40-54); Hemoglobin 14.6 g/dL (13.0-16.5); Lymphocyte # 2.28 X10^3/ul (0.83-4.51); Lymphocyte % 35.7 % (19-41); Mean Corp Hgb Conc 32.1 g/dL (32-36); Mean Corpuscular Hgb 29.5 pg (27.0-32.0); Mean Corpuscular Volume 91.9 fL (80-94); Mean Platelet Vol. 9.8 fl (6.2-12.0); Monocyte# 0.51 X10^3/uL; NRBC Flagged by Analyzer 0 % (0-5); Neutrophil # 3.33 X10^3/uL (2.7-7.7); Neutrophil % 52.1 % (47-70); Platelet Count 247 K/mm3 (150-450); RBC Distribution Width CV 12.2 % (11.6-14.6); RBC Distribution Width SD 41.6 fl (35.1-43.9); Red Blood Count 4.95 M/mm3 (4.6-6.2); White Blood Count 6.4 K/mm3 (4.4-11.0)
[2022-07-31 10:29] LABS: AST(SGOT) 25 U/L (15-37); Alanine Aminotransfer ALT/SGPT 31 U/L (16-61); Albumin, Serum 3.6 g/dL (3.2-5.0); Alkaline Phosphatase 76 U/L (45-117); Anion Gap 6 (5-15); BUN 21 mg/dL (7-18); Calcium,Total 9.2 mg/dL (8.5-10.1); Chloride 106 mmol/L (98-107); Creatinine, Serum 1.05 mg/dL (0.70-1.30); EST Glomerular Filtration Rate 78 mL/min (>60); Est Glom Filt Rate - Afr Amer 95 mL/min (>60); Globulin 3.7 g/dL (2.2-4.2); Glucose 105 mg/dL (74-106); Potassium 4.5 mmol/L (3.5-5.1); Protein, Total 7.3 g/dL (6.4-8.2); Sodium Level 140 mmol/L (136-145)
== END | disposition home or self-care (01) ==
PROVIDERS: PCP Nurse Practitioner Family; Referring Provider Internal Medicine Rheumatology; Visit Provider Internal Medicine Rheumatology
DX: M06.4 Inflammatory polyarthropathy (principal); Z79.899 Other long term (current) drug therapy; M21.40 Flat foot [pes planus] (acquired), unspecified foot; I10 Essential (primary) hypertension
CPT/HCPCS: 36415; 80053; 85025

== ENCOUNTER → 2022-10-28 | Outpatient (CLI) | payer OTHER, SELFPAY | END | disposition home or self-care (01) | PROVIDERS: PCP Nurse Practitioner Family; Referring Provider Nurse Practitioner Family; Visit Provider Nurse Practitioner Family | DX: G47.00 Insomnia, unspecified (principal); E66.01 Morbid (severe) obesity due to excess calories; R06.83 Snoring; R53.83 Other fatigue | CPT/HCPCS: 95806 ==

== ENCOUNTER → 2023-01-18 | Outpatient (CLI) | payer OTHER, SELFPAY ==
[2023-01-18 12:18] LABS: Absolute Neutrophil Count 4.3 X10^3/uL (2.0-7.7); Basophil# 0.05 X10^3/uL; Basophil% 0.7 % (0-1); Eosinophil# 0.09 X10^3/uL; Eosinophils% 1.3 % (0-5); Hemoglobin 14.9 g/dL (13.0-16.5); Lymphocyte % 26.5 % (19-41); Mean Corp Hgb Conc 33.1 g/dL (32-36); Mean Corpuscular Volume 90.5 fL (80-94); Monocyte# 0.48 X10^3/uL; Monocyte% 7.1 % (0-10); NRBC Flagged by Analyzer 0 % (0-5); Neutrophil # 4.33 X10^3/uL (2.7-7.7); Platelet Count 239 K/mm3 (150-450); RBC Distribution Width CV 12.3 % (11.6-14.6); RBC Distribution Width SD 40.3 fl (35.1-43.9); Red Blood Count 4.97 M/mm3 (4.6-6.2); White Blood Count 6.8 K/mm3 (4.4-11.0)
[2023-01-18 13:02] LABS: ALB/GLOB Ratio 1.1 RATIO (0.9-2.4); AST(SGOT) 24 U/L (15-37); Alanine Aminotransfer ALT/SGPT 36 U/L (16-61); Alkaline Phosphatase 77 U/L (45-117); Anion Gap 7 (5-15); BUN 15 mg/dL (7-18); BUN/Creat Ratio 16.6 RATIO (10-20); Calcium,Total 9.3 mg/dL (8.5-10.1); Chloride 106 mmol/L (98-107); EST Glomerular Filtration Rate 93 mL/min (>60); Est Glom Filt Rate - Afr Amer 112 mL/min (>60); Globulin 3.7 g/dL (2.2-4.2); Glucose 91 mg/dL (74-106); Potassium 4.4 mmol/L (3.5-5.1); Protein, Total 7.7 g/dL (6.4-8.2); Sodium Level 139 mmol/L (136-145)
== END | disposition home or self-care (01) ==
LOC: MTLAB 10:16
PROVIDERS: PCP Nurse Practitioner Family; Referring Provider Internal Medicine Rheumatology; Visit Provider Internal Medicine Rheumatology
DX: M06.4 Inflammatory polyarthropathy (principal); Z79.899 Other long term (current) drug therapy
CPT/HCPCS: 36415; 80053; 85025

== ENCOUNTER → 2023-05-07 | Outpatient (CLI) | payer OTHER, SELFPAY ==
[2023-05-07 15:46] LABS: Absolute Lymphocyte Count 2.68 X10^3/uL (0.83-4.51); Basophil# 0.07 X10^3/uL; Basophil% 0.9 % (0-1); Eosinophil# 0.29 X10^3/uL; Eosinophils% 3.8 % (0-5); Hematocrit 44.1 % (40-54); Hemoglobin 14.2 g/dL (13.0-16.5); Lymphocyte # 2.68 X10^3/ul (0.83-4.51); Lymphocyte % 34.8 % (19-41); Mean Corp Hgb Conc 32.2 g/dL (32-36); Mean Corpuscular Hgb 29.2 pg (27.0-32.0); Mean Corpuscular Volume 90.6 fL (80-94); Mean Platelet Vol. 10.2 fl (6.2-12.0); Monocyte% 7.8 % (0-10); NRBC Flagged by Analyzer 0 % (0-5); Neutrophil # 4.03 X10^3/uL (2.7-7.7); Neutrophil % 52.2 % (47-70); Platelet Count 274 K/mm3 (150-450); RBC Distribution Width CV 12.8 % (11.6-14.6); RBC Distribution Width SD 42.5 fl (35.1-43.9); Red Blood Count 4.87 M/mm3 (4.6-6.2); White Blood Count 7.7 K/mm3 (4.4-11.0)
[2023-05-07 16:20] LABS: AST(SGOT) 19 U/L (15-37); Alanine Aminotransfer ALT/SGPT 35 U/L (16-61); Alkaline Phosphatase 78 U/L (45-117); Anion Gap 5 (5-15); BUN 16 mg/dL (7-18); BUN/Creat Ratio 17.1 RATIO (10-20); Calcium,Total 9.3 mg/dL (8.5-10.1); Chloride 106 mmol/L (98-107); Creatinine, Serum 0.93 mg/dL (0.70-1.30); EST Glomerular Filtration Rate 89 mL/min (>60); Est Glom Filt Rate - Afr Amer 108 mL/min (>60); Globulin 3.9 g/dL (2.2-4.2); Glucose 108 mg/dL (74-106); Potassium 3.7 mmol/L (3.5-5.1); Protein, Total 7.9 g/dL (6.4-8.2); Sodium Level 139 mmol/L (136-145)
== END | disposition home or self-care (01) ==
LOC: MTLAB 12:47
PROVIDERS: PCP Nurse Practitioner Family; Referring Provider Internal Medicine Rheumatology; Visit Provider Internal Medicine Rheumatology
DX: M06.4 Inflammatory polyarthropathy (principal); Z79.899 Other long term (current) drug therapy
CPT/HCPCS: 36415; 80053; 85025

== ENCOUNTER → 2023-10-19 | Outpatient (CLI) | payer OTHER, SELFPAY ==
[2023-10-19 12:10] LABS: Absolute Lymphocyte Count 2.14 X10^3/uL (0.83-4.51); Absolute Neutrophil Count 4.1 X10^3/uL (2.0-7.7); Basophil# 0.08 X10^3/uL; Basophil% 1.1 % (0-1); Eosinophil# 0.19 X10^3/uL; Eosinophils% 2.7 % (0-5); Hematocrit 42.3 % (40-54); Hemoglobin 13.9 g/dL (13.0-16.5); Lymphocyte # 2.14 X10^3/ul (0.83-4.51); Lymphocyte % 30.4 % (19-41); Mean Corp Hgb Conc 32.9 g/dL (32-36); Mean Corpuscular Volume 88.3 fL (80-94); Mean Platelet Vol. 10.2 fl (6.2-12.0); Monocyte# 0.53 X10^3/uL; Monocyte% 7.5 % (0-10); NRBC Flagged by Analyzer 0 % (0-5); Neutrophil # 4.08 X10^3/uL (2.7-7.7); Neutrophil % 57.9 % (47-70); Platelet Count 221 K/mm3 (150-450); RBC Distribution Width CV 12.9 % (11.6-14.6); RBC Distribution Width SD 41.9 fl (35.1-43.9); Red Blood Count 4.79 M/mm3 (4.6-6.2); White Blood Count 7.1 K/mm3 (4.4-11.0)
[2023-10-19 12:24] LABS: AST(SGOT) 25 U/L (15-37); Alanine Aminotransfer ALT/SGPT 35 U/L (16-61); Albumin, Serum 3.8 g/dL (3.2-5.0); Alkaline Phosphatase 84 U/L (45-117); Anion Gap 7 (5-15); BUN 16 mg/dL (7-18); Calcium,Total 9.7 mg/dL (8.5-10.1); Chloride 105 mmol/L (98-107); EST Glomerular Filtration Rate 83 mL/min (>60); Est Glom Filt Rate - Afr Amer 100 mL/min (>60); Glucose 93 mg/dL (74-106); Potassium 4.5 mmol/L (3.5-5.1); Protein, Total 7.8 g/dL (6.4-8.2); Sodium Level 138 mmol/L (136-145)
== END | disposition home or self-care (01) ==
LOC: MTLAB 10:25
PROVIDERS: PCP Nurse Practitioner Family; Referring Provider Internal Medicine Rheumatology; Visit Provider Internal Medicine Rheumatology
DX: M06.4 Inflammatory polyarthropathy (principal); Z79.899 Other long term (current) drug therapy
CPT/HCPCS: 36415; 80053; 85025

== ENCOUNTER → 2023-11-29 | Outpatient (CLI) | payer OTHER, SELFPAY ==
[2023-11-29 12:22] LABS: Absolute Lymphocyte Count 1.99 X10^3/uL (0.83-4.51); Basophil# 0.07 X10^3/uL; Hematocrit 40.6 % (40-54); Hemoglobin 13.3 g/dL (13.0-16.5); Lymphocyte # 1.99 X10^3/ul (0.83-4.51); Lymphocyte % 29.4 % (19-41); Mean Corp Hgb Conc 32.8 g/dL (32-36); Mean Corpuscular Volume 91.4 fL (80-94); Mean Platelet Vol. 10.1 fl (6.2-12.0); Monocyte# 0.49 X10^3/uL; Monocyte% 7.2 % (0-10); NRBC Flagged by Analyzer 0 % (0-5); Neutrophil # 3.95 X10^3/uL (2.7-7.7); Neutrophil % 58.5 % (47-70); Platelet Count 221 K/mm3 (150-450); RBC Distribution Width CV 12.8 % (11.6-14.6); RBC Distribution Width SD 42.6 fl (35.1-43.9); Red Blood Count 4.44 M/mm3 (4.6-6.2); White Blood Count 6.8 K/mm3 (4.4-11.0)
[2023-11-29 12:29] LABS: Vitamin B12 488 pg/mL (211-911); Vitamin D,25 Hydroxy 21.4 ng/mL
[2023-11-29 12:41] LABS: AST(SGOT) 24 U/L (15-37); Alanine Aminotransfer ALT/SGPT 33 U/L (16-61); Albumin, Serum 3.6 g/dL (3.2-5.0); Alkaline Phosphatase 77 U/L (45-117); Anion Gap 7 (5-15); BUN 15 mg/dL (7-18); BUN/Creat Ratio 14.4 RATIO (10-20); Calcium,Total 9.5 mg/dL (8.5-10.1); Chloride 108 mmol/L (98-107); Cholesterol 188 mg/dL (200); Creatinine, Serum 1.04 mg/dL (0.70-1.30); EST Glomerular Filtration Rate 79 mL/min (>60); Est Glom Filt Rate - Afr Amer 95 mL/min (>60); Ferritin 222 ng/mL (26-388); Globulin 3.7 g/dL (2.2-4.2); Glucose 96 mg/dL (74-106); High Density Lipoprotein 50 mg/dL; Iron 59 ug/dL (65-175); PSA,Total - Annual Screen 0.39 ng/mL (0.00-4.00); Potassium 4.8 mmol/L (3.5-5.1); Protein, Total 7.3 g/dL (6.4-8.2); Sodium Level 140 mmol/L (136-145); T4 Free Direct 0.93 ng/dL (0.76-1.46); Triglycerides 186 mg/dL; Very Low Density Lipoprotein 37 mg/dL (5-40)
== END | disposition home or self-care (01) ==
LOC: BFHLAB 09:04
PROVIDERS: PCP Nurse Practitioner Family; Referring Provider Nurse Practitioner Family; Visit Provider Nurse Practitioner Family
DX: Z00.01 Encounter for general adult medical examination with abnormal findings (principal); I10 Essential (primary) hypertension; R53.83 Other fatigue
CPT/HCPCS: 36415; 80053; 80061; 82306; 82607; 82728; 83540; 84153; 84403; 84439; 84443; 85025; G0103

== ENCOUNTER → 2024-05-08 | Outpatient (CLI) | payer OTHER, SELFPAY ==
[2024-05-08 13:30] LABS: Absolute Lymphocyte Count 1.72 X10^3/uL (0.83-4.51); Basophil# 0.04 X10^3/uL; Basophil% 0.6 % (0-1); Eosinophil# 0.21 X10^3/uL; Eosinophils% 3.2 % (0-5); Hematocrit 40.9 % (40-54); Hemoglobin 13.5 g/dL (13.0-16.5); Lymphocyte # 1.72 X10^3/ul (0.83-4.51); Lymphocyte % 26.3 % (19-41); Mean Corpuscular Hgb 29.8 pg (27.0-32.0); Mean Corpuscular Volume 90.3 fL (80-94); Mean Platelet Vol. 10.8 fl (6.2-12.0); Monocyte# 0.54 X10^3/uL; Monocyte% 8.3 % (0-10); NRBC Flagged by Analyzer 0 % (0-5); Neutrophil # 3.99 X10^3/uL (2.7-7.7); Neutrophil % 61.1 % (47-70); Platelet Count 237 K/mm3 (150-450); RBC Distribution Width CV 12.6 % (11.6-14.6); RBC Distribution Width SD 41.5 fl (35.1-43.9); Red Blood Count 4.53 M/mm3 (4.6-6.2); White Blood Count 6.5 K/mm3 (4.4-11.0)
[2024-05-08 15:48] LABS: ALB/GLOB Ratio 1.4 RATIO (0.9-2.4); AST(SGOT) 32 U/L (<=37); Alanine Aminotransfer ALT/SGPT 29 U/L (<=46); Albumin, Serum 4.3 g/dL (3.5-5.0); Alkaline Phosphatase 78 U/L (40-129); Anion Gap 13 (5-15); BUN 24 mg/dL (4-19); BUN/Creat Ratio 22.5 RATIO (10-20); Calcium 9.6 mg/dL (7.6-11.0); Carbon Dioxide 19.9 mmol/L (22.0-29.0); Chloride 105 mmol/L (96-108); Creatinine, Serum 1.05 mg/dL (0.70-1.20); EST Glomerular Filtration Rate 83 (>60); Globulin 3.1 g/dL (2.2-4.2); Glucose 100 mg/dL (70-99); Potassium 4.7 mmol/L (3.3-5.1); Protein, Total 7.5 g/dL (5.9-8.4); Sodium Level 138 mmol/L (133-145); Total Bilirubin 0.34 mg/dL (0.00-1.30)
== END | disposition home or self-care (01) ==
LOC: MTLAB 09:11
PROVIDERS: PCP Nurse Practitioner Family; Referring Provider Internal Medicine Rheumatology; Visit Provider Internal Medicine Rheumatology
DX: M06.4 Inflammatory polyarthropathy (principal); G56.03 Carpal tunnel syndrome, bilateral upper limbs; Z79.899 Other long term (current) drug therapy
CPT/HCPCS: 36415; 80053; 85025

== ENCOUNTER → 2024-10-13 | Outpatient (CLI) | payer OTHER, SELFPAY ==
--- OUTSIDE RECORDS SUMMARY | 2024-10-13 07:45 | XMS RPT_ITS | CCD ---
Author Organization [facility] Care Team Providers Care Robot Operator Name Role Phone Hemanth Marshall Primary Care Unavailable Mandi Ambriz Attending Unavailable Mandi Ambriz Referring Unavailable Hemanth Marshall Primary Care Unavailable Hemanth Marshall Attending Unavailable Hemanth Marshall Referring Unavailable Mandi Ambriz Attending Unavailable Mandi Ambriz Referring Unavailable Rolando, Hemanth Primary Care Unavailable Rolando WREATH MACHINE TENDER-C, Hemanth Primary Care Provider [phone] Pb FELIZ, Dr. Raymond Attending Provider Pb FELIZ, Dr. Raymond Referring Provider Medications Current Medications Medication Drug Class(es) Dates Sig (Normalized) Sig (Original) allopurinol 100 mg oral tablet (4 sources) Xanthine Oxidase Inhibitor Start: 03-20-19 21 take 1 tablet by mouth once daily Allopurinol 100 mg tablet Active 100 mg PO DAILY March 20, 2020 1:00am hydroCHLOROthiazide 12.5 mg oral tablet (4 sources) Thiazide Diuretic Start: 12-25-19 18 take 1 tablet by mouth once daily Hydrochlorothiazide 12.5 mg tablet Active 12.5 mg PO DAILY December 24, 2017 12:00am hydroxychloroquine sulfate 200 mg oral tablet (4 sources) Antimalarial, Antirheumatic Agent Start: 01-15-20 18 take 2 tablets by mouth once daily Hydroxychloroquine 200 MG tablet Active 400 mg PO DAILY January 14, 2018 1:00am Start: 01-14-2018 take 400 mg by mouth once daily Hydroxychloroquine Active 400 MG PO DAILY January 14, 2018 12:00am lisinopril 40 mg oral tablet (4 sources) Angiotensin Converting Enzyme Inhibitor Start: 12-24-2017 take 1 tablet by mouth once daily Lisinopril 40 mg tablet Active 40 mg PO DAILY December 24, 2017 12:00am Completed/Discontinued Medications Medication Drug Class(es) Dates Sig (Normalized) Sig (Original) acetaminophen 325 mg / HYDROcodone bitartrate 5 mg oral tablet (4 sources) Opioid Agonist Start: 12-01-2013 End: 12-24-2017 Hydrocodone-Acetami nophen 1 TABLET tablet Discontinued 1 - 2 {tbl} PO EVERY 6 HOURS NEEDED as needed for Pain December 01, 2013 12:00am December 24, 2017 8:19am Start: 12-01-2013 End: 12-24-2017 take 1 tablet by mouth every six hours as needed Hydrocodone-Acetaminophen Discontinued 1 - 2 TABLET PO EVERY 6 HOURS NEEDED November 30, 2013 11:00pm December 24, 2017 7:19am acetaminophen 325 mg / oxyCODONE hydrochloride 5 mg oral tablet (4 sources) Opioid Agonist Start: 04-02-2020 End: 04-07-2020 Oxycodone-Acetaminophen 1 EA CH tablet Discontinued 1 - 2 {tbl} PO EVERY 6 HOURS NEEDED as needed for Pain Score 4-10/10 20 April 02, 2020 April 06, 2020 1:00am April 07, 2020 1:03am Start: 04-02-2020 End: 04-07-2020 take 1 tablet by mouth every six hours as needed Oxycodone-Acetaminophen Discontinued 1 - 2 TABLET PO EVERY 6 HOURS NEEDED 20 April 02, 2020 April 07, 2020 12:03am amoxicillin 875 mg / clavulanate 125 mg oral tablet (4 sources) Penicillin-class Antibacterial Start: 04-02-2020 End: 04-16-2020 Amoxicillin-Pot Clavulanate 1 EACH tablet Discontinued 1 NMA PO TWICE A DAY April 02, 2020 1:00am April 16, 2020 1:53pm Start: 04-02-2020 End: 04-16-2020 Amoxicillin-Pot Clavulanate Discontinued 1 EACH PO TWICE A DAY April 02, 2020 12:00am April 16, 2020 12:53pm etodolac 300 mg oral capsule (4 sources) Nonsteroidal Anti-inflammatory Drug Start: 12-01-2013 End: 12-24-2017 take 1 capsule by mouth three times daily at mealtime Etodolac 300 MG capsule Discontinued 300 mg PO 3 TIMES DAILY WITH MEALS December 01, 2013 12:00am December 24, 2017 8:19am with food Problems Problem Classification Problem Date Documented Da te Episodic/Chronic Other skin disorders (4 sources) Cyst of skin; Translations: [Follicular cyst of the skin and subcutaneous tissue, unspecified] 04-02-2020 Episodic Rheumatoid arthritis and related disease (1 source) Inflammatory polyarthropathy; Translations: [Inflammatory polyarthropathy] Onset: 05-19-2024 Chronic Results Test Name Value Interpretation Reference Range Facility Absolute neutrophil countOrd ered By: Mandi Ambriz on 05-08-2024 Neutrophils (Bld) [#/Vol] 4.0 10*3/uL 2.0-7.7 [facility] BUN/creatinine ratioOrdered By: Mandi Ambriz on 05-08-2024 Urea nitrogen/Creatinine [Mass ratio] 22.5 mg/mg High 10-20 [facility] Basophil percentageOrdered B y: Mandi Ambriz on 05-08-2024 Basophils/100 WBC (Bld) 0.6 % 0-1 [facility] Bilirubin, totalOrdered By: Mandi Ambriz on 05-08-2024 Bilirubin [Mass/Vol] 0.34 mg/dL 0.00-1.30 [facility] CBC W/Diff, Automatedon Absolute Lymph 1.72 X10 3/uL Normal 0.83-4.51 [facility] Comment on above: Performed By: #### L 500.4050, L100.0100 #### [facility] [address] [facility] [address] Absolute Neut 4.0 X10 3/uL Normal 2.0-7.7 [facility] Comment on above: Performed By: #### L 500.4050, L100.0100 #### [facility] [address] [facility] [address] Basophils/100 WBC (Bld) 0.6 % Normal 0-1 [facility] Comment on above: Performed By: #### L 500.4050, L100.0100 #### [facility] [address] [place], [address] Eosinophils/100 WBC (Bld) 3.2 % Normal 0-5 [facility] Comment on above: Performed By: #### L 500.4050, L100.0100 #### [facility] [address] [place], [address] Erythrocyte distribution width (RBC) [Ratio] 12.6 % Normal 11.6-14.6 [facility] Comment on above: Performed By: #### L 500.4050, L100.0100 #### [facility] [address] [place], [address] Hematocrit (Bld) [Volume fraction] 40.9 % Normal 40-54 [facility] Comment on above: Performed By: #### L 500.4050, L100.0100 #### [facility] [address] [place], [address] Hemoglobin (Bld) [Mass/Vol] 13.5 g/dL Normal 13.0-16.5 [facility] Comment on above: Performed By: #### L 500.4050, L100.0100 #### [facility] [address] [place], [address] IG% 0.500 Normal 0.0-0.9 [facility] Comment on above: Result Comment: IG% - Immature Granulocytes (promyelocytes, myelocytes and metamyelocytes) > 1% indicates that a LEFT SHIFT is Present. Performed By: #### L 500.4050, L100.0100 #### [facility] [address] [place], [address] Lymphocytes/100 WBC (Bld) 26.3 % Normal 19-41 [facility] Comment on above: Performed By: #### L 500.4050, L100.0100 #### [facility] [address] [place], [address] MCH (RBC) [Entitic mass] 29.8 pg Normal 27.0-32.0 [facility] Comment on above: Performed By: #### L 500.4050, L100.0100 #### [facility] [address] [place], [address] MCHC (RBC) [Mass/Vol] 33.0 g/dL Normal 32-36 [facility] Comment on above: Performed By: #### L 500.4050, L100.0100 #### [facility] [address] [place], [address] MCV (RBC) [Entitic vol] 90.3 fL Normal 80-[address] [facility] Comment on above: Performed By: #### L 500.4050, L100.0100 #### [facility] [address] [place], [address] Monocytes/100 WBC (Bld) 8.3 % Normal 0-[address] [facility] Comment on above: Performed By: #### L 500.4050, L100.0100 #### [facility] [address] [place], [address] Neutrophils/100 WBC (Bld) 61.1 % Normal 47-70 [facility] Comment on above: Performed By: #### L 500.4050, L100.0100 #### [facility] [address] [place], [address] Nucleated RBC (Bld) [#/Vol] 0 10*3/uL Normal 0-5 [facility] Comment on above: Performed By: #### L 500.4050, L100.0100 #### [facility] [address] [place], [address] Platelet mean volume (Bld) [Entitic vol] 10.8 fL Normal 6.2-12.0 [facility] Comment on above: Performed By: #### L 500.4050, L100.0100 #### [facility] [address] [place], [address] Platelets (Bld) [#/Vol] 237 10*3/uL Normal 150-450 [facility] Comment on above: Performed By: #### L 500.4050, L100.0100 #### [facility] [address] [place], [address] RBC (Bld) [#/Vol] 4.53 10*6/uL Low 4.6-6.2 [facility] Comment on above: Performed By: #### L 500.4050, L100.0100 #### [facility] [address] [place], [address] RDW SD 41.5 fl Normal 35.1-43.9 [facility] Comment on above: Performed By: #### L 500.4050, L100.0100 #### [facility] [address] [place], [address] WBC (Bld) [#/Vol] 6.5 10*3/uL Normal 4.4-11.0 [facility] Comment on above: Performed By: #### L 500.4050, L100.0100 #### [facility] [address] [place], [address] Carbon dioxide measurementOr dered By: Mandi Ambriz on 05-08-2024 CO2 [Moles/Vol] 19.9 mmol/L Low 22.0-29.0 [facility] Chloride measurementOrdered By: Mandi Ambriz on 05-08-2024 Chloride [Moles/Vol] 105 mmol/L 96-108 [facility] Comprehensive Metabolic Prof ilon 05-08-2024 Albumin [Mass/Vol] 4.3 g/dL Normal 3.5-5.0 [facility] Comment on above: Performed By: #### L 500.4050, L100.0100 #### [facility] [address] [place], [address] Albumin/Globulin [Mass ratio] 1.4 {ratio} Normal 0.9-2.4 [facility] Comment on above: Performed By: #### L 500.4050, L100.0100 #### [facility] [address] [place], [address] ALK PHOS 78 U/L Normal 40-129 [facility] Comment on above: Performed By: #### L 500.4050, L100.0100 #### [facility] [address] [place], [address] ALT [Catalytic activity/Vol] 29 U/L Normal <=46 [facility] Comment on above: Performed By: #### L 500.4050, L100.0100 #### [facility] [address] [place], [address] Anion gap [Moles/Vol] 13 mmol/L Normal 5-15 [facility] Comment on above: Performed By: #### L 500.4050, L100.0100 #### [facility] [address] [place], [address] AST [Catalytic activity/Vol] 32 U/L Normal <=37 [facility] Comment on above: Performed By: #### L 500.4050, L100.0100 #### [facility] [address] [place], [address] Bilirubin [Mass/Vol] 0.34 mg/dL Normal 0.00-1.30 [facility] Comment on above: Performed By: #### L 500.4050, L100.0100 #### [facility] [address] [place], [address] BUN/CRE 22.5 RATIO High 10-20 [facility] Comment on above: Performed By: #### L 500.4050, L100.0100 #### [facility] [address] [place], [address] Calcium [Mass/Vol] 9.6 mg/dL Normal 7.6-11.0 [facility] Comment on above: Performed By: #### L 500.4050, L100.0100 #### [facility] [address] [place], [address] Chloride [Moles/Vol] 105 mmol/L Normal 96-108 [facility] Comment on above: Performed By: #### L 500.4050, L100.0100 #### [facility] [address] [place], [address] CO2 [Moles/Vol] 19.9 mmol/L Low 22.0-29.0 [facility] Comment on above: Performed By: #### L 500.4050, L100.0100 #### [facility] [address] [place], [address] Creatinine [Mass/Vol] 1.05 mg/dL Normal 0.70-1.20 [facility] Comment on above: Performed By: #### L 500.4050, L100.0100 #### [facility] [address] [place], [address] GFR/1.73 sq M.predicted among non-blacks MDRD (S/P/Bld) [Vol rate/Area] 83 mL/min/{1.73_m2} Normal >60 [facility] Comment on above: Result Comment: mL/m in/1.73m2 CKD-EPI Creatinine Equation (2020) Performed By: #### L 500.4050, L100.0100 #### [facility] [address] [place], [address] Globulin (S) [Mass/Vol] 3.1 g/dL Normal 2.2-4.[address] [facility] Comment on above: Performed By: #### L 500.4050, L100.0100 #### [facility] [address] [place], [address] Glucose [Mass/Vol] 100 mg/dL High 70-99 [facility] Comment on above: Performed By: #### L 500.4050, L100.0100 #### [facility] [address] [place], [address] Potassium [Moles/Vol] 4.7 mmol/L Normal 3.3-5.1 [facility] Comment on above: Performed By: #### L 500.4050, L100.0100 #### [facility] [address] [place], [address] Sodium [Moles/Vol] 138 mmol/L Normal 133-145 [facility] Comment on above: Performed By: #### L 500.4050, L100.0100 #### [facility] [address] [place], [address] T PROT 7.5 g/dL Normal 5.9-8.4 [facility] Comment on above: Performed By: #### L 500.4050, L100.0100 #### [facility] [address] [place], [address] Urea nitrogen [Mass/Vol] 24 mg/dL High 4-19 [facility] Comment on above: Performed By: #### L 500.4050, L100.0100 #### [facility] [address] [place], [address] Eosinophil percentageOrdered By: Mandi Ambriz on 05-08-2024 Eosinophils/100 WBC (Bld) 3.2 % 0-5 [facility] Erythrocyte distribution wid th ratioOrdered By: Mandi Ambriz on 05-08-2024 Erythrocyte distribution width (RBC) [Ratio] 12.6 % 11.6-14.6 [facility] Erythrocyte distribution wid th standard deviationOrdered By: Mandi Ambriz on 05-08-2024 Erythrocyte distribution width (RBC) [Entitic vol] 41.5 fL 35.1-43.9 [facility] GFR/1.73 sq M.predicted luis angel g non-blacks MDRD (S/P/Bld) [Vol rate/Area]Ordered By: Mandi Ambriz on 05-08-2024 Estimated GFR (MDRD) Non-Af Amer 83 >60 [facility] Comment on above: mL/min/1.73m2 CKD-EP I Creatinine Equation (2020) Hematocrit Auto (Bld) [Volum e fraction]Ordered By: Mandi Ambriz on 05-08-2024 Hematocrit (Bld) [Volume fraction] 40.9 % 40-54 [facility] Hemoglobin measurementOrdere d By: Mandi Ambriz on 05-08-2024 Hemoglobin (Bld) [Mass/Vol] 13.5 g/dL 13.0-16.5 [facility] Immature granulocytes/100 WB C Auto (Bld)Ordered By: Mandi Ambriz on 05-08-2024 Immature granulocytes/100 WBC (Bld) 0.500 % 0.0-0.9 [facility] Comment on above: IG% - Immature Granu locytes (promyelocytes, myelocytes and metamyelocytes) > 1% indicates that a LEFT SHIFT is Present. Laboratory - Chemistry and C hemistry - challengeOrdered By: Mandi Ambriz on 05-08-2024 AST [Catalytic activity/Vol] 32 U/L <38 [facility] Lymphocytes Auto (Unsp spec) [#/Vol]Ordered By: Mandi Ambriz on 05-08-2024 Lymphocytes (Bld) [#/Vol] 1.72 10*3/uL 0.83-4.51 [facility] Lymphocytes/100 WBC Auto (Un sp spec)Ordered By: Mandi Ambriz on 05-08-2024 Lymphocytes/100 WBC (Bld) 26.3 % 19-41 [facility] MCV (mean corpuscular volume ) determinationOrdered By: Mandi Ambriz on 05-08-2024 MCV (RBC) [Entitic vol] 90.3 fL 80-94 [facility] Mean corpuscular hemoglobin (MCH) determinationOrdered By: Mandi Ambriz on 05-08-2024 MCH (RBC) [Entitic mass] 29.8 pg 27.0-32.0 [facility] Mean corpuscular hemoglobin concentration (MCHC) determinationOrdered By: Mandi Ambriz on 05-08-2024 MCHC (RBC) [Mass/Vol] 33.0 g/dL 32-36 [facility] Mean platelet volume determi nationOrdered By: Mandi Ambriz on 05-08-2024 Platelet mean volume (Bld) [Entitic vol] 10.8 fL 6.2-12.0 [facility] Monocyte percentageOrdered B y: Mandi Ambriz on 05-08-2024 Monocytes/100 WBC (Bld) 8.3 % 0-10 [facility] Neutrophil percentageOrdered By: Mandi Ambriz on 05-08-2024 Neutrophils/100 WBC (Bld) 61.1 % 47-70 [facility] Nucleated red blood cell per centageOrdered By: Mandi Ambriz on 05-08-2024 Nucleated RBC/100 WBC (Bld) [Ratio] 0 % 0-5 [facility] Platelet countOrdered By: Axel Ambriz on 05-08-2024 Platelets (Bld) [#/Vol] 237 10*3/uL 150-450 [facility] RBC Auto (Bld) [#/Vol]Ordere d By: Mandi Ambriz on 05-08-2024 RBC (Bld) [#/Vol] 4.53 10*6/uL Low 4.6-6.2 [facility] Serum creatinine measurement (mass/volume)Ordered By: Mandi Ambriz on 05-08-2024 Creatinine [Mass/Vol] 1.05 mg/dL 0.70-1.20 [facility] Serum globulin measurementOr dered By: Mandi Ambriz on 05-08-2024 Globulin (S) [Mass/Vol] 3.1 g/dL 2.2-4.[address] [facility] Serum glucose measurement (m ass/volume)Ordered By: Mandi Ambriz on 05-08-2024 Glucose [Mass/Vol] 100 mg/dL High 70-99 [facility] Serum or plasma alanine adler otransferase (ALT) measurementOrdered By: Mandi Ambriz on 05-08-2024 ALT [Catalytic activity/Vol] 29 U/L <47 [facility] Serum or plasma albumin ruben urement (mass/volume)Ordered By: Mandi Ambriz on 05-08-2024 Albumin [Mass/Vol] 4.3 g/dL 3.5-5.0 [facility] Serum or plasma albumin/glob ulin mass ratioOrdered By: Mandi Ambriz on 05-08-2024 Albumin/Globulin [Mass ratio] 1.4 {ratio} 0.9-2.4 [facility] Serum or plasma alkaline mitzy sphatase measurementOrdered By: Mandi Ambriz on 05-08-2024 ALP [Catalytic activity/Vol] 78 U/L 40-129 [facility] Serum or plasma anion gap de termination (moles/volume)Ordered By: Mandi Ambriz on 05-08-2024 Anion gap [Moles/Vol] 13 mmol/L 5-15 [facility] Serum or plasma calcium ruben urement (mass/volume)Ordered By: Mandi Ambriz on 05-08-2024 Calcium [Mass/Vol] 9.6 mg/dL 7.6-11.0 [facility] Serum or plasma potassium me asurementOrdered By: Mandi Ambriz on 05-08-2024 Potassium [Moles/Vol] 4.7 mmol/L 3.3-5.1 [facility] Serum or plasma sodium measu rement (moles/volume)Ordered By: Mandi Ambriz on 05-08-2024 Sodium [Moles/Vol] 138 mmol/L 133-145 [facility] Serum or plasma urea nitroge n measurement (mass/volume)Ordered By: Mandi Ambriz on 05-08-2024 Urea nitrogen [Mass/Vol] 24 mg/dL High 4-19 [facility] Total proteinOrdered By: Natasha Ambriz on 05-08-2024 Protein [Mass/Vol] 7.5 g/dL 5.9-8.4 [facility] White blood cell (WBC) count Ordered By: Mandi Ambriz on 05-08-2024 WBC (Bld) [#/Vol] 6.5 10*3/uL 4.4-11.0 [facility] CBC W/Diff, Automatedon 09-2 -2023 Absolute Lymph 1.99 X10 3/uL Normal 0.83-4.51 [facility] Comment on above: Performed By: #### L 100.0100, L500.4100, L506.1000, L503.0105, L500.4050, L506.0400, L509.3000, L503.6150, L501.9910, L503.6550, L501.9520 #### [facility] [address] [place], [address] Absolute Neut 4.0 X10 3/uL Normal 2.0-7.7 [facility] Comment on above: Performed By: #### L 100.0100, L500.4100, L506.1000, L503.0105, L500.4050, L506.0400, L509.3000, L503.6150, L501.9910, L503.6550, L501.9520 #### [facility] [address] [place], [place], [id number] (581) Basophils/100 WBC (Bld) 1.0 % Normal 0-1 [facility] Comment on above: Performed By: #### L 100.0100, L500.4100, L506.1000, L503.0105, L500.4050, L506.0400, L509.3000, L503.6150, L501.9910, L503.6550, L501.9520 #### [facility] [address] [place], [place], [phone] ([phone] Eosinophils/100 WBC (Bld) 3.0 % Normal 0-5 [facility] Comment on above: Performed By: #### L 100.0100, L500.4100, L506.1000, L503.0105, L500.4050, L506.0400, L509.3000, L503.6150, L501.9910, L503.6550, L501.9520 #### [facility] [address] [place], [address] (398) Erythrocyte distribution width (RBC) [Ratio] 12.8 % Normal 11.6-14.6 [facility] Comment on above: Performed By: #### L 100.0100, L500.4100, L506.1000, L503.0105, L500.4050, L506.0400, L509.3000, L503.6150, L501.9910, L503.6550, L501.9520 #### [facility] [address] [place], [address] (594) Hematocrit (Bld) [Volume fraction] 40.6 % Normal 40-54 [facility] Comment on above: Performed By: #### L 100.0100, L500.4100, L506.1000, L503.0105, L500.4050, L506.0400, L509.3000, L503.6150, L501.9910, L503.6550, L501.9520 #### [facility] [address] [place], [address] (877) Hemoglobin (Bld) [Mass/Vol] 13.3 g/dL Normal 13.0-16.5 [facility] Comment on above: Performed By: #### L 100.0100, L500.4100, L506.1000, L503.0105, L500.4050, L506.0400, L509.3000, L503.6150, L501.9910, L503.6550, L501.9520 #### [facility] [address] [place], [address] (141) IG% 0.900 Normal 0.0-0.9 [facility] Comment on above: Result Comment: IG% - Immature Granulocytes (promyelocytes, myelocytes and metamyelocytes) > 1% indicates that a LEFT SHIFT is Present. Performed By: #### L 100.0100, L500.4100, L506.1000, L503.0105, L500.4050, L506.0400, L509.3000, L503.6150, L501.9910, L503.6550, L501.9520 #### [facility] [address] [place], [address] Lymphocytes/100 WBC (Bld) 29.4 % Normal 19-41 [facility] Comment on above: Performed By: #### L 100.0100, L500.4100, L506.1000, L503.0105, L500.4050, L506.0400, L509.3000, L503.6150, L501.9910, L503.6550, L501.9520 #### [facility] [address] [facility] [place], [address] MCH (RBC) [Entitic mass] 30.0 pg Normal 27.0-32.0 [facility] Comment on above: Performed By: #### L 100.0100, L500.4100, L506.1000, L503.0105, L500.4050, L506.0400, L509.3000, L503.6150, L501.9910, L503.6550, L501.9520 #### [facility] [address] [place], [address] MCHC (RBC) [Mass/Vol] 32.8 g/dL Normal 32-36 [facility] Comment on above: Performed By: #### L 100.0100, L500.4100, L506.1000, L503.0105, L500.4050, L506.0400, L509.3000, L503.6150, L501.9910, L503.6550, L501.9520 #### [facility] [address] [facility] [address] [place], [address] MCV (RBC) [Entitic vol] 91.4 fL Normal 80-94 [facility] Comment on above: Performed By: #### L 100.0100, L500.4100, L506.1000, L503.0105, L500.4050, L506.0400, L509.3000, L503.6150, L501.9910, L503.6550, L501.9520 #### [facility] [address] [facility] [place], [address] Monocytes/100 WBC (Bld) 7.2 % Normal 0-10 [facility] Comment on above: Performed By: #### L 100.0100, L500.4100, L506.1000, L503.0105, L500.4050, L506.0400, L509.3000, L503.6150, L501.9910, L503.6550, L501.9520 #### [facility] [address] [place], [place], [phone] ([phone] Neutrophils/100 WBC (Bld) 58.5 % Normal 47-70 [facility] Comment on above: Performed By: #### L 100.0100, L500.4100, L506.1000, L503.0105, L500.4050, L506.0400, L509.3000, L503.6150, L501.9910, L503.6550, L501.9520 #### [facility] [address] [place], [place], [id number] (581) Nucleated RBC (Bld) [#/Vol] 0 10*3/uL Normal 0-5 [facility] Comment on above: Performed By: #### L 100.0100, L500.4100, L506.1000, L503.0105, L500.4050, L506.0400, L509.3000, L503.6150, L501.9910, L503.6550, L501.9520 #### [facility] [address] [place], [address] Platelet mean volume (Bld) [Entitic vol] 10.1 fL Normal 6.2-12.0 [facility] Comment on above: Performed By: #### L 100.0100, L500.4100, L506.1000, L503.0105, L500.4050, L506.0400, L509.3000, L503.6150, L501.9910, L503.6550, L501.9520 #### [facility] [address] [place], [place], [id number] (680) Platelets (Bld) [#/Vol] 221 10*3/uL Normal 150-450 [facility] Comment on above: Performed By: #### L 100.0100, L500.4100, L506.1000, L503.0105, L500.4050, L506.0400, L509.3000, L503.6150, L501.9910, L503.6550, L501.9520 #### [facility] [address] [place], [place], [phone] (997) RBC (Bld) [#/Vol] 4.44 10*6/uL Low 4.6-6.2 [facility] Comment on above: Performed By: #### L 100.0100, L500.4100, L506.1000, L503.0105, L500.4050, L506.0400, L509.3000, L503.6150, L501.9910, L503.6550, L501.9520 #### [facility] [address] [place], [place], [id number] (968) RDW SD 42.6 fl Normal 35.1-43.9 [facility] Comment on above: Performed By: #### L 100.0100, L500.4100, L506.1000, L503.0105, L500.4050, L506.0400, L509.3000, L503.6150, L501.9910, L503.6550, L501.9520 #### [facility] [address] [place], [place], [id number] (414) WBC (Bld) [#/Vol] 6.8 10*3/uL Normal 4.4-11.0 [facility] Comment on above: Performed By: #### L 100.0100, L500.4100, L506.1000, L503.0105, L500.4050, L506.0400, L509.3000, L503.6150, L501.9910, L503.6550, L501.9520 #### [facility] [address] [place], [address] Comprehensive Metabolic Prof [place] 11-29-2023 Albumin [Mass/Vol] 3.6 g/dL Normal 3.2-5.0 [facility] Comment on above: Performed By: #### L 100.0100, L500.4100, L506.1000, L503.0105, L500.4050, L506.0400, L509.3000, L503.6150, L501.9910, L503.6550, L501.9520 #### [facility] [address] [place], [place], [id number] Albumin/Globulin [Mass ratio] 1.0 {ratio} Normal 0.9-2.4 [facility] Comment on above: Performed By: #### L 100.0100, L500.4100, L506.1000, L503.0105, L500.4050, L506.0400, L509.3000, L503.6150, L501.9910, L503.6550, L501.9520 #### [facility] [address] [place], [place], [id number] ALK P 77 U/L Normal 45-117 [facility] Comment on above: Performed By: #### L 100.0100, L500.4100, L506.1000, L503.0105, L500.4050, L506.0400, L509.3000, L503.6150, L501.9910, L503.6550, L501.9520 #### [facility] [address] [place], [address] ALT [Catalytic activity/Vol] 33 U/L Normal 16-61 [facility] Comment on above: Performed By: #### L 100.0100, L500.4100, L506.1000, L503.0105, L500.4050, L506.0400, L509.3000, L503.6150, L501.9910, L503.6550, L501.9520 #### [facility] [address] [place], [address] AST [Catalytic activity/Vol] 24 U/L Normal 15-37 [facility] Comment on above: Performed By: #### L 100.0100, L500.4100, L506.1000, L503.0105, L500.4050, L506.0400, L509.3000, L503.6150, L501.9910, L503.6550, L501.9520 #### [facility] [address] [place], [place], [id number] Bilirubin [Mass/Vol] 0.30 mg/dL Normal 0.20-1.00 [facility] Comment on above: Result Comment: For patients on eltrombopag therapy, use of Dimension Dorothy TBIL is not recommended. Performed By: #### L 100.0100, L500.4100, L506.1000, L503.0105, L500.4050, L506.0400, L509.3000, L503.6150, L501.9910, L503.6550, L501.9520 #### [facility] [address] [place], [place], [phone] ([phone]) BUN/CRE 14.4 RATIO Normal 10-20 [facility] Comment on above: Performed By: #### L 100.0100, L500.4100, L506.1000, L503.0105, L500.4050, L506.0400, L509.3000, L503.6150, L501.9910, L503.6550, L501.9520 #### [facility] [address] [place], [address] CA,Total 9.5 mg/dL Normal 8.5-10.1 [facility] Comment on above: Performed By: #### L 100.0100, L500.4100, L506.1000, L503.0105, L500.4050, L506.0400, L509.3000, L503.6150, L501.9910, L503.6550, L501.9520 #### [facility] [address] [place], [address] Chloride [Moles/Vol] 108 mmol/L High 98-107 [facility] Comment on above: Performed By: #### L 100.0100, L500.4100, L506.1000, L503.0105, L500.4050, L506.0400, L509.3000, L503.6150, L501.9910, L503.6550, L501.9520 #### [facility] [address] [place], [address] CO2 [Moles/Vol] 25.0 mmol/L Normal 21.0-32.0 [facility] Comment on above: Performed By: #### L 100.0100, L500.4100, L506.1000, L503.0105, L500.4050, L506.0400, L509.3000, L503.6150, L501.9910, L503.6550, L501.9520 #### [facility] [address] [place], [place], [phone] ([phone]) Creatinine [Mass/Vol] 1.04 mg/dL Normal 0.70-1.30 [facility] Comment on above: Result Comment: The validity of the calculated GFR GFRAA in patients over 70 years has not been determined. Clinical correlation is essential. Performed By: #### L 100.0100, L500.4100, L506.1000, L503.0105, L500.4050, L506.0400, L509.3000, L503.6150, L501.9910, L503.6550, L501.9520 #### [facility] [address] [place], [address] EST GFR - AA 95 mL/min Normal >60 [facility] Comment on above: Result Comment: Afri can Niuean GFR Calc Performed By: #### L 100.0100, L500.4100, L506.1000, L503.0105, L500.4050, L506.0400, L509.3000, L503.6150, L501.9910, L503.6550, L501.9520 #### [facility] [address] [place], [place], [phone] (492) GAP 7 Normal 5-15 [facility] Comment on above: Performed By: #### L 100.0100, L500.4100, L506.1000, L503.0105, L500.4050, L506.0400, L509.3000, L503.6150, L501.9910, L503.6550, L501.9520 #### [facility] [address] [place], [place], [id number] (713) GFR/1.73 sq M.predicted among non-blacks MDRD (S/P/Bld) [Vol rate/Area] 79 mL/min/{1.73_m2} Normal >60 [facility] Comment on above: Result Comment: Non- GFR Calc Performed By: #### L 100.0100, L500.4100, L506.1000, L503.0105, L500.4050, L506.0400, L509.3000, L503.6150, L501.9910, L503.6550, L501.9520 #### [facility] [address] [place], [place], [id number] ([phone]) Globulin (S) [Mass/Vol] 3.7 g/dL Normal 2.2-4.[address] [facility] Comment on above: Performed By: #### L 100.0100, L500.4100, L506.1000, L503.0105, L500.4050, L506.0400, L509.3000, L503.6150, L501.9910, L503.6550, L501.9520 #### [facility] [address] [place], [address] Glucose [Mass/Vol] 96 mg/dL Normal 74-106 [facility] Comment on above: Performed By: #### L 100.0100, L500.4100, L506.1000, L503.0105, L500.4050, L506.0400, L509.3000, L503.6150, L501.9910, L503.6550, L501.9520 #### [facility] [address] [place], [place], [id number] ([phone]) Potassium [Moles/Vol] 4.8 mmol/L Normal 3.5-5.1 [facility] Comment on above: Performed By: #### L 100.0100, L500.4100, L506.1000, L503.0105, L500.4050, L506.0400, L509.3000, L503.6150, L501.9910, L503.6550, L501.9520 #### [facility] [address] [place], [place], [phone] (917) Sodium [Moles/Vol] 140 mmol/L Normal 136-145 [facility] Comment on above: Performed By: #### L 100.0100, L500.4100, L506.1000, L503.0105, L500.4050, L506.0400, L509.3000, L503.6150, L501.9910, L503.6550, L501.9520 #### [facility] [address] [place], [address] T PROT 7.3 g/dL Normal 6.4-8.2 [facility] Comment on above: Performed By: #### L 100.0100, L500.4100, L506.1000, L503.0105, L500.4050, L506.0400, L509.3000, L503.6150, L501.9910, L503.6550, L501.9520 #### [facility] [address] [place], [address] Urea nitrogen [Mass/Vol] 15 mg/dL Normal 7-18 [facility] Comment on above: Performed By: #### L 100.0100, L500.4100, L506.1000, L503.0105, L500.4050, L506.0400, L509.3000, L503.6150, L501.9910, L503.6550, L501.9520 #### [facility] [address] [place], [address] Ferritinon 11-29-2023 Ferritin [Mass/Vol] 222 ng/mL Normal 26-388 [facility] Comment on above: Performed By: #### L 500.4050, L100.0100 #### [facility] [address] [place], [address] Ironon 11-29-2023 Iron [Mass/Vol] 59 ug/dL Low 65-175 [facility] Comment on above: Performed By: #### L 500.4050, L100.0100 #### [facility] [address] [place], [address] Lipid Profileon 11-29-2023 Cholesterol [Mass/Vol] 188 mg/dL Normal 200 [facility] Comment on above: Result Comment: <200 mg/dL Desirable 200-240 mg/dL Borderline >240 mg/dL High Risk Performed By: #### L 100.0100, L500.4100, L506.1000, L503.0105, L500.4050, L506.0400, L509.3000, L503.6150, L501.9910, L503.6550, L501.9520 #### [facility] [address] [place], [address] Cholesterol in HDL [Mass/Vol] 50 mg/dL Normal [facility] Comment on above: Result Comment: The drugs N-Acetylcysteine and Metamizole may falsely depress this assay. Reference Range HDL <40 mg/dL Low HDL Cholesterol HDL >or= 60 mg/dL High HDL Cholesterol Performed By: #### L 100.0100, L500.4100, L506.1000, L503.0105, L500.4050, L506.0400, L509.3000, L503.6150, L501.9910, L503.6550, L501.9520 #### [facility] [address] [place], [address] Cholesterol in LDL [Mass/Vol] 101 mg/dL Normal 0-130 [facility] Comment on above: Performed By: #### L 100.0100, L500.4100, L506.1000, L503.0105, L500.4050, L506.0400, L509.3000, L503.6150, L501.9910, L503.6550, L501.9520 #### [facility] [address] [place], [address] Cholesterol in VLDL [Mass/Vol] 37 mg/dL Normal 5-40 [facility] Comment on above: Performed By: #### L 100.0100, L500.4100, L506.1000, L503.0105, L500.4050, L506.0400, L509.3000, L503.6150, L501.9910, L503.6550, L501.9520 #### [facility] [address] [place], [address] Triglyceride [Mass/Vol] 186 mg/dL Normal [facility] Comment on above: Result Comment: The drugs N-Acetylcysteine and Metamizole may falsely depress this assay. Serum Triglycerides Reference Interval Normal <150 mg/dL Borderline high 150 - 199 mg/dL High 200 - 499 mg/dL Very High > or = 500 mg/dL Performed By: #### L 100.0100, L500.4100, L506.1000, L503.0105, L500.4050, L506.0400, L509.3000, L503.6150, L501.9910, L503.6550, L501.9520 #### [facility] [address] [place], [address] PSA,Total - Annual Screenon 11-29-2023 PSA,TOT SCREEN 0.39 ng/mL Normal 0.00-4.00 [facility] Comment on above: Result Comment: This test was performed using the TPSA assay method for the OrderBorder chemistry system. Values obtained with different assay methods cannot be used interchangably. When changing PSA assays in the course of monitoring a patient, additional sequential testing should be carried out to confirm baseline values. Performed By: #### L 100.0100, L500.4100, L506.1000, L503.0105, L500.4050, L506.0400, L509.3000, L503.6150, L501.9910, L503.6550, L501.9520 #### [facility] [address] [place], [place], [id number] T4 Free Directon 11-29-2023 T4 FREE DIRECT 0.93 ng/dL Normal 0.76-1.46 [facility] Comment on above: Performed By: #### L 500.4050, L100.0100 #### [facility] [address] [place], [address] Testosterone, Serum Totalon 11-29-2023 Testosterone [Mass/Vol] 79.50 ng/dL Normal [facility] Comment on above: Result Comment: CENT RAL 90% REFERENCE RANGES MALE AGE <50 197.44 - 669.58 ng/dL MALE AGE > or = 50 187.72 - 684.19 ng/dL FEMALE AGE <50 8.38 - 35.01 ng/dL FEMALE AGE > or = 50 <7.00 - 35.92 ng/dL Effective as of 10/01/20 Performed By: #### L 100.0100, L500.4100, L506.1000, L503.0105, L500.4050, L506.0400, L509.3000, L503.6150, L501.9910, L503.6550, L501.9520 #### [facility] [address] [place], [place], [id number] Thyroid Stim Hormone (TSH)on 11-29-2023 TSH 1.220 uIU/mL Normal 0.358-3.740 [facility] Comment on above: Performed By: #### L 100.0100, L500.4100, L506.1000, L503.0105, L500.4050, L506.0400, L509.3000, L503.6150, L501.9910, L503.6550, L501.9520 #### [facility] [address] [place], [address] Vitamin B12on 11-29-2023 Cobalamin (Vitamin B12) [Mass/Vol] 488 pg/mL Normal 211-911 [facility] Comment on above: Performed By: #### L 100.0100, L500.4100, L506.1000, L503.0105, L500.4050, L506.0400, L509.3000, L503.6150, L501.9910, L503.6550, L501.9520 #### [facility] [address] [place], [place], [id number] Vitamin D,25 Hydroxyon 11-28 Vitamin D 25-OH 21.4 ng/mL Normal [facility] Comment on above: Result Comment: Vangie min D 25(OH) Status Range Deficiency <20 ng/mL (50nmol/L) Insufficiency 20 - 30 ng/mL (50 - 75 nmol/L) Sufficiency 30 - 100 ng/mL (75 - 250 nmol/L) Toxicity >100 ng/mL (>250 nmol/L) Performed By: #### L 100.0100, L500.4100, L506.1000, L503.0105, L500.4050, L506.0400, L509.3000, L503.6150, L501.9910, L503.6550, L501.9520 #### [facility] [address] [place], [address] CBC W/Diff, Automatedon 10-06-2023 Absolute Lymph 2.14 X10 3/uL Normal 0.83-4.51 [facility] Comment on above: Performed By: #### L 500.4050, L100.0100 #### [facility] [address] [place], [address] Absolute Neut 4.1 X10 3/uL Normal 2.0-7.7 [facility] Comment on above: Performed By: #### L 500.4050, L100.0100 #### [facility] [address] [place], [address] Basophils/100 WBC (Bld) 1.1 % High 0-1 [facility] Comment on above: Performed By: #### L 500.4050, L100.0100 #### [facility] [address] [place], [address] Eosinophils/100 WBC (Bld) 2.7 % Normal 0-5 [facility] Comment on above: Performed By: #### L 500.4050, L100.0100 #### [facility] [address] [place], [address] Erythrocyte distribution width (RBC) [Ratio] 12.9 % Normal 11.6-14.6 [facility] Comment on above: Performed By: #### L 500.4050, L100.0100 #### [facility] [address] [place], [address] Hematocrit (Bld) [Volume fraction] 42.3 % Normal 40-54 [facility] Comment on above: Performed By: #### L 500.4050, L100.0100 #### [facility] [address] [place], [address] Hemoglobin (Bld) [Mass/Vol] 13.9 g/dL Normal 13.0-16.5 [facility] Comment on above: Performed By: #### L 500.4050, L100.0100 #### [facility] [address] [place], [address] IG% 0.400 Normal 0.0-0.9 [facility] Comment on above: Result Comment: IG% - Immature Granulocytes (promyelocytes, myelocytes and metamyelocytes) > 1% indicates that a LEFT SHIFT is Present. Performed By: #### L 500.4050, L100.0100 #### [facility] [address] [place], [address] Lymphocytes/100 WBC (Bld) 30.4 % Normal 19-41 [facility] Comment on above: Performed By: #### L 500.4050, L100.0100 #### [facility] [address] [place], [address] MCH (RBC) [Entitic mass] 29.0 pg Normal 27.0-32.0 [facility] Comment on above: Performed By: #### L 500.4050, L100.0100 #### [facility] [address] [place], [address] MCHC (RBC) [Mass/Vol] 32.9 g/dL Normal 32-36 [facility] Comment on above: Performed By: #### L 500.4050, L100.0100 #### [facility] [address] [place], [address] MCV (RBC) [Entitic vol] 88.3 fL Normal 80-94 [facility] Comment on above: Performed By: #### L 500.4050, L100.0100 #### [facility] [address] [place], [address] Monocytes/100 WBC (Bld) 7.5 % Normal 0-[address] [facility] Comment on above: Performed By: #### L 500.4050, L100.0100 #### [facility] [address] [place], [address] Neutrophils/100 WBC (Bld) 57.9 % Normal 47-70 [facility] Comment on above: Performed By: #### L 500.4050, L100.0100 #### [facility] [address] [place], [address] Nucleated RBC (Bld) [#/Vol] 0 10*3/uL Normal 0-5 [facility] Comment on above: Performed By: #### L 500.4050, L100.0100 #### [facility] [address] [place], [address] Platelet mean volume (Bld) [Entitic vol] 10.2 fL Normal 6.2-12.0 [facility] Comment on above: Performed By: #### L 500.4050, L100.0100 #### [facility] [address] [place], [address] Platelets (Bld) [#/Vol] 221 10*3/uL Normal 150-450 [facility] Comment on above: Performed By: #### L 500.4050, L100.0100 #### [facility] [address] [place], [address] RBC (Bld) [#/Vol] 4.79 10*6/uL Normal 4.6-6.2 [facility] Comment on above: Performed By: #### L 500.4050, L100.0100 #### [facility] [address] [place], [address] RDW SD 41.9 fl Normal 35.1-43.9 [facility] Comment on above: Performed By: #### L 500.4050, L100.0100 #### [facility] [address] [place], [address] WBC (Bld) [#/Vol] 7.1 10*3/uL Normal 4.4-11.0 [facility] Comment on above: Performed By: #### L 500.4050, L100.0100 #### [facility] [address] [place], [address] Comprehensive Metabolic Prof [place] 10-19-2023 Albumin [Mass/Vol] 3.8 g/dL Normal 3.2-5.0 [facility] Comment on above: Performed By: #### L 500.4050, L100.0100 #### [facility] [address] [place], [address] Albumin/Globulin [Mass ratio] 1.0 {ratio} Normal 0.9-2.4 [facility] Comment on above: Performed By: #### L 500.4050, L100.0100 #### [facility] [address] [place], [address] ALK P 84 U/L Normal 45-117 [facility] Comment on above: Performed By: #### L 500.4050, L100.0100 #### [facility] [address] [place], [address] ALT [Catalytic activity/Vol] 35 U/L Normal 16-61 [facility] Comment on above: Performed By: #### L 500.4050, L100.0100 #### [facility] [address] [place], [address] AST [Catalytic activity/Vol] 25 U/L Normal 15-37 [facility] Comment on above: Performed By: #### L 500.4050, L100.0100 #### [facility] [address] [place], [address] Bilirubin [Mass/Vol] 0.50 mg/dL Normal 0.20-1.00 [facility] Comment on above: Result Comment: For patients on eltrombopag therapy, use of Dimension Dorothy TBIL is not recommended. Performed By: #### L 500.4050, L100.0100 #### [facility] [address] [place], [address] BUN/CRE 16.0 RATIO Normal 10-20 [facility] Comment on above: Performed By: #### L 500.4050, L100.0100 #### [facility] [address] [place], [address] CA,Total 9.7 mg/dL Normal 8.5-10.1 [facility] Comment on above: Performed By: #### L 500.4050, L100.0100 #### [facility] [address] [place], [address] Chloride [Moles/Vol] 105 mmol/L Normal 98-107 [facility] Comment on above: Performed By: #### L 500.4050, L100.0100 #### [facility] [address] [place], [address] CO2 [Moles/Vol] 26.0 mmol/L Normal 21.0-32.0 [facility] Comment on above: Performed By: #### L 500.4050, L100.0100 #### [facility] [address] [place], [address] Creatinine [Mass/Vol] 1.00 mg/dL Normal 0.70-1.30 [facility] Comment on above: Result Comment: The validity of the calculated GFR GFRAA in patients over 70 years has not been determined. Clinical correlation is essential. Performed By: #### L 500.4050, L100.0100 #### [facility] [address] [place], [address] EST GFR - AA 100 mL/min Normal >60 [facility] Comment on above: Result Comment: Afri can Niuean GFR Calc Performed By: #### L 500.4050, L100.0100 #### [facility] [address] [place], [address] GAP 7 Normal 5-15 [facility] Comment on above: Performed By: #### L 500.4050, L100.0100 #### [facility] [address] [place], [address] GFR/1.73 sq M.predicted among non-blacks MDRD (S/P/Bld) [Vol rate/Area] 83 mL/min/{1.73_m2} Normal >60 [facility] Comment on above: Result Comment: Non- GFR Calc Performed By: #### L 500.4050, L100.0100 #### [facility] [address] [place], [address] Globulin (S) [Mass/Vol] 4.0 g/dL Normal 2.2-4.[address] [facility] Comment on above: Performed By: #### L 500.4050, L100.0100 #### [facility] [address] [place], [address] Glucose [Mass/Vol] 93 mg/dL Normal 74-106 [facility] Comment on above: Performed By: #### L 500.4050, L100.0100 #### [facility] [address] [place], [address] Potassium [Moles/Vol] 4.5 mmol/L Normal 3.5-5.1 [facility] Comment on above: Performed By: #### L 500.4050, L100.0100 #### [facility] [address] [place], [address] Sodium [Moles/Vol] 138 mmol/L Normal 136-145 [facility] Comment on above: Performed By: #### L 500.4050, L100.0100 #### [facility] [address] [place], [address] T PROT 7.8 g/dL Normal 6.4-8.2 [facility] Comment on above: Performed By: #### L 500.4050, L100.0100 #### [facility] [address] [place], [address] Urea nitrogen [Mass/Vol] 16 mg/dL Normal 7-18 [facility] Comment on above: Performed By: #### L 500.4050, L100.0100 #### [facility] [address] [place], [address] Absolute lymphocyte countOrd ered By: Mandi Ambriz on 05-07-2023 Lymphocytes Auto (Unsp spec) [#/Vol] 2.68 10*3/uL 0.83-4.51 [facility] Automated lymphocyte count a s percentage of total leukocytesOrdered By: Mandi Ambriz on 05-07-2023 Lymphocytes/100 WBC Auto (Unsp spec) 34.8 % 19-41 [facility] Basophil percentageOrdered B y: Mandi Ambriz on 05-07-2023 Basophils/100 WBC (Bld) 0.9 % 0-1 [facility] Bilirubin [Mass/Vol] 0.50 mg/dL 0.20-1.00 [facility] Comment on above: For patients on eltr ombopag therapy, use of Dimension Dorothy TBIL is not recommended. Chloride [Moles/Vol] 106 mmol/L 98-107 [facility] Eosinophils/100 WBC (Bld) 3.8 % 0-5 [facility] Glucose [Mass/Vol] 108 mg/dL 74-106 [facility] Comment on above: Fasting Glucose resu lt from 100 to 125 mg/dL suggests IMPAIRED HOMEOSTASIS per A.D.A. criteria. Hemoglobin (Bld) [Mass/Vol] 14.2 g/dL 13.0-16.5 [facility] Monocytes/100 WBC (Bld) 7.8 % 0-10 [facility] Neutrophils (Bld) [#/Vol] 4.0 10*3/uL 2.0-7.7 [facility] Neutrophils/100 WBC (Bld) 52.2 % 47-70 [facility] Potassium [Moles/Vol] 3.7 mmol/L 3.5-5.1 [facility] Protein [Mass/Vol] 7.9 g/dL 6.4-8.2 [facility] Sodium [Moles/Vol] 139 mmol/L 136-145 [facility] WBC (Bld) [#/Vol] 7.7 10*3/uL 4.4-11.0 [facility] Determination of erythrocyte mean corpuscular volume (MCV)Ordered By: Mandi Ambriz on 05-07-2023 MCV (RBC) [Entitic vol] 90.6 fL 80-94 [facility] Erythrocyte distribution wid th ratioOrdered By: Mandi Ambriz on 05-07-2023 Erythrocyte distribution width (RBC) [Ratio] 12.8 % 11.6-14.6 [facility] Erythrocyte distribution wid th standard deviationOrdered By: Mandi Ambriz on 05-07-2023 Erythrocyte distribution width (RBC) [Entitic vol] 42.5 fL 35.1-43.9 [facility] Hematocrit Auto (Bld) [Volum e fraction]Ordered By: Mandi Ambriz on 05-07-2023 Hematocrit (Bld) [Volume fraction] 44.1 % 40-54 [facility] Immature granulocytes/100 WB C Auto (Bld)Ordered By: Mandi Ambriz on 05-07-2023 Immature granulocytes/100 WBC (Bld) 0.500 % 0.0-0.9 [facility] Comment on above: IG% - Immature Granu locytes (promyelocytes, myelocytes and metamyelocytes) > 1% indicates that a LEFT SHIFT is Present. Laboratory - Chemistry and C hemistry - challengeOrdered By: Mandi Ambriz on 05-07-2023 Albumin/Globulin [Mass ratio] 1.0 {ratio} 0.9-2.4 [facility] ALP [Catalytic activity/Vol] 78 U/L 45-117 [facility] ALT [Catalytic activity/Vol] 35 U/L 16-61 [facility] CO2 [Moles/Vol] 28.0 mmol/L 21.0-32.0 [facility] Globulin (S) [Mass/Vol] 3.9 g/dL 2.2-4.2 [facility] Urea nitrogen/Creatinine [Mass ratio] 17.1 mg/mg 10-20 [facility] - Hematology and Cell countsOrdered By: Mandi Ambriz on 05-07-2023 MCH (RBC) [Entitic mass] 29.2 pg 27.0-32.0 [facility] MCHC (RBC) [Mass/Vol] 32.2 g/dL 32-36 [facility] Nucleated RBC/100 WBC (Bld) [Ratio] 0 % 0-5 [facility] Platelet mean volume (Bld) [Entitic vol] 10.2 fL 6.2-12.0 [facility] Platelets (Bld) [#/Vol] 274 10*3/uL 150-450 [facility] No Panel InformationOrdered By: Mandi Ambriz on 05-07-2023 Estimated GFR (MDRD) Amer 108 mL/min >60 [facility] Comment on above: GFR Calc Estimated GFR (MDRD) Non-Af Amer 89 mL/min >60 [facility] Comment on above: Non- GFR Calc RBC Auto (Bld) [#/Vol]Ordere d By: Mandi Ambriz on 05-07-2023 RBC (Bld) [#/Vol] 4.87 10*6/uL 4.6-6.2 [facility] Serum or plasma calcium ruben urement (mass/volume)Ordered By: Mandi Ambriz on 05-07-2023 Calcium [Mass/Vol] 9.3 mg/dL 8.5-10.1 [facility] Serum or plasma creatinine m easurement (mass/volume)Ordered By: Mandi Ambirz on 05-07-2023 Creatinine [Mass/Vol] 0.93 mg/dL 0.70-1.30 [facility] Comment on above: The validity of the calculated GFR & GFRAA in patients over 70 years has not been determined. Clinical correlation is essential. Serum or plasma urea nitroge n measurement (mass/volume)Ordered By: Mandi Ambriz on 05-07-2023 Urea nitrogen [Mass/Vol] 16 mg/dL 7-18 [facility] Thin prep Papanicolaou smear with manual screeningOrdered By: Mandiavinash Ambriz on 05-07-2023 Thin prep Papanicolaou smear with manual screening 4.0 g/dL 3.2-5.0 [facility] Thin prep Papanicolaou smear with manual screening 19 U/L 15-37 [facility] Thin prep Papanicolaou smear with manual screening 5 5-15 [facility] Absolute lymphocyte countOrd ered By: Mandi Ambriz on 01-18-2023 Lymphocytes Auto (Unsp spec) [#/Vol] 1.80 10*3/uL 0.83-4.51 [facility] Basophil percentageOrdered B y: Mandi Ambriz on 01-18-2023 Basophils/100 WBC (Bld) 0.7 % 0-[address] [facility] Bilirubin [Mass/Vol] 0.50 mg/dL 0.20-1.00 [facility] Comment on above: For patients on eltr ombopag therapy, use of Dimension Dorothy TBIL is not recommended. Chloride [Moles/Vol] 106 mmol/L 98-107 [facility] Eosinophils/100 WBC (Bld) 1.3 % 0-5 [facility] Glucose [Mass/Vol] 91 mg/dL 74-106 [facility] Neutrophils (Bld) [#/Vol] 4.3 10*3/uL 2.0-7.7 [facility] Neutrophils/100 WBC (Bld) 64.0 % 47-70 [facility] Potassium [Moles/Vol] 4.4 mmol/L 3.5-5.1 [facility] Protein [Mass/Vol] 7.7 g/dL 6.4-8.2 [facility] Sodium [Moles/Vol] 139 mmol/L 136-145 [facility] WBC (Bld) [#/Vol] 6.8 10*3/uL 4.4-11.0 [facility] Blood erythrocytes count (nu mber/volume)Ordered By: Mandi Ambriz on 01-18-2023 RBC (Bld) [#/Vol] 4.97 10*6/uL 4.6-6.2 [facility] Blood hemoglobin measurement (mass/volume)Ordered By: Mandi Ambriz on 01-18-2023 Hemoglobin (Bld) [Mass/Vol] 14.9 g/dL 13.0-16.5 [facility] Blood lymphocytes/100 leukoc ytesOrdered By: Mandi Ambriz on 01-18-2023 Lymphocytes/100 WBC (Bld) 26.5 % 19-41 [facility] Blood monocytes/100 leukocyt esOrdered By: Mandi Ambriz on 01-18-2023 Monocytes/100 WBC (Bld) 7.1 % 0-10 [facility] Blood platelet mean volumeOr dered By: Mandi Ambriz on 01-18-2023 Platelet mean volume (Bld) [Entitic vol] 10.0 fL 6.2-12.0 [facility] Determination of erythrocyte mean corpuscular volume (MCV)Ordered By: Mandiavinash Ambriz on 01-18-2023 MCV (RBC) [Entitic vol] 90.5 fL 80-94 [facility] Hematocrit Auto (Bld) [Volum e fraction]Ordered By: Mandi Ambriz on 01-18-2023 Hematocrit (Bld) [Volume fraction] 45.0 % 40-54 [facility] Laboratory - Chemistry and C hemistry - challengeOrdered By: Mandi Ambriz on 01-18-2023 ALP [Catalytic activity/Vol] 77 U/L 45-117 [facility] ALT [Catalytic activity/Vol] 36 U/L 16-61 [facility] CO2 [Moles/Vol] 26.0 mmol/L 21.0-32.0 [facility] Globulin (S) [Mass/Vol] 3.7 g/dL 2.2-4.2 [facility] Urea nitrogen/Creatinine [Mass ratio] 16.6 mg/mg 10-20 [facility] Laboratory - Hematology and Cell countsOrdered By: Mandi Ambriz on 01-18-2023 Erythrocyte distribution width (RBC) [Entitic vol] 40.3 fL 35.1-43.9 [facility] Erythrocyte distribution width (RBC) [Ratio] 12.3 % 11.6-14.6 [facility] Immature granulocytes/100 WBC (Bld) 0.400 % 0.0-0.9 [facility] Comment on above: IG% - Immature Granu locytes (promyelocytes, myelocytes and metamyelocytes) > 1% indicates that a LEFT SHIFT is Present. MCH (RBC) [Entitic mass] 30.0 pg 27.0-32.0 [facility] Nucleated RBC/100 WBC (Bld) [Ratio] 0 % 0-5 [facility] MCHC Auto (RBC) [Mass/Vol]Or dered By: Mandi Ambriz on 01-18-2023 MCHC (RBC) [Mass/Vol] 33.1 g/dL 32-36 [facility] No Panel InformationOrdered By: Mandi Ambriz on 01-18-2023 Estimated GFR (MDRD) Amer 112 mL/min >60 [facility] Comment on above: GFR Calc Estimated GFR (MDRD) Non-Af Amer 93 mL/min >60 [facility] Comment on above: Non- GFR Calc Platelets bldOrdered By: Natasha Ambriz on 01-18-2023 Platelets (Bld) [#/Vol] 239 10*3/uL 150-450 [facility] Serum or plasma albumin ruben urement (mass/volume)Ordered By: Mandi Ambriz on 01-18-2023 Albumin [Mass/Vol] 4.0 g/dL 3.2-5.0 [facility] Serum or plasma albumin/glob ulin mass ratioOrdered By: Mandi Ambriz on 01-18-2023 Albumin/Globulin [Mass ratio] 1.1 {ratio} 0.9-2.4 [facility] Serum or plasma calcium ruben urement (mass/volume)Ordered By: Mandi Ambriz on 01-18-2023 Calcium [Mass/Vol] 9.3 mg/dL 8.5-10.1 [facility] Serum or plasma creatinine m easurement (mass/volume)Ordered By: Mandi Ambriz on 01-18-2023 Creatinine [Mass/Vol] 0.90 mg/dL 0.70-1.30 [facility] Comment on above: The validity of the calculated GFR & GFRAA in patients over 70 years has not been determined. Clinical correlation is essential. Serum or plasma urea nitroge n measurement (mass/volume)Ordered By: Mandi Ambriz on 01-18-2023 Urea nitrogen [Mass/Vol] 15 mg/dL 7-18 [facility] Thin prep Papanicolaou smear with manual screeningOrdered By: Mandiavinash Ambriz on 01-18-2023 Thin prep Papanicolaou smear with manual screening 24 U/L 15-37 [facility] Thin prep Papanicolaou smear with manual screening 7 5-15 [facility] Absolute lymphocyte counton 02-12-2022 Lymphocytes Auto (Unsp spec) [#/Vol] 2.11 10*3/uL 0.83-4.51 [facility] Work Phone: Basophil percentageon 2021 Basophils/100 WBC (Bld) 1.0 % 0-1 [facility] Work Phone: Bilirubin [Mass/Vol] 0.50 mg/dL 0.20-1.00 [facility] Work Phone: Comment on above: For patients on eltr ombopag therapy, use of Dimension Dorothy TBIL is not recommended. Chloride [Moles/Vol] 104 mmol/L 98-107 [facility] Work Phone: Eosinophils/100 WBC (Bld) 3.1 % 0-5 [facility] Work Phone: Glucose [Mass/Vol] 132 mg/dL 74-106 [facility] Work Phone: Comment on above: Fasting Glucose resu lt greater than or equal to 126 mg/dL suggests DIABETES MELLITUS per A.D.A. criteria. Neutrophils (Bld) [#/Vol] 3.2 10*3/uL 2.0-7.7 [facility] Work Phone: Neutrophils/100 WBC (Bld) 53.2 % 47-70 [facility] Work Phone: Potassium [Moles/Vol] 4.1 mmol/L 3.5-5.1 [facility] Work Phone: Protein [Mass/Vol] 7.6 g/dL 6.4-8.2 [facility] Work Phone: Sodium [Moles/Vol] 140 mmol/L 136-145 [facility] Work Phone: WBC (Bld) [#/Vol] 6.1 10*3/uL 4.4-11.0 [facility] Work Phone: Blood erythrocytes count (nu mber/volume)on 02-12-2022 RBC (Bld) [#/Vol] 5.21 10*6/uL 4.6-6.2 [facility] Work Phone: Blood hemoglobin measurement (mass/volume)on 02-12-2022 Hemoglobin (Bld) [Mass/Vol] 15.3 g/dL 13.0-16.5 [facility] Work Phone: Blood lymphocytes/100 leukoc yteson 02-12-2022 Lymphocytes/100 WBC (Bld) 34.8 % 19-41 [facility] Work Phone: Blood monocytes/100 leukocyt eson 02-12-2022 Monocytes/100 WBC (Bld) 7.4 % 0-10 [facility] Work Phone: Blood platelet mean volumeon 02-12-2022 Platelet mean volume (Bld) [Entitic vol] 9.7 fL 6.2-12.0 [facility] Work Phone: Determination of erythrocyte mean corpuscular volume (MCV)on 02-12-2022 MCV (RBC) [Entitic vol] 88.9 fL 80-94 [facility] Work Phone: Hematocrit Auto (Bld) [Volum e fraction]on 02-12-2022 Hematocrit (Bld) [Volume fraction] 46.3 % 40-54 [facility] Work Phone: [phone] Laboratory - Chemistry and C hemistry - challengeon 02-12-2022 ALP [Catalytic activity/Vol] 81 U/L 45-117 [facility] Work Phone: [phone] ALT [Catalytic activity/Vol] 34 U/L 16-61 [facility] Work Phone: [phone] CO2 [Moles/Vol] 29.0 mmol/L 21.0-32.0 [facility] Work Phone: [phone] Globulin (S) [Mass/Vol] 3.5 g/dL 2.2-4.2 [facility] Work Phone: [phone] Urea nitrogen/Creatinine [Mass ratio] 19.0 mg/mg 10-20 [facility] Work Phone: [phone] Laboratory - Hematology and Cell countson 02-12-2022 Erythrocyte distribution width (RBC) [Entitic vol] 40.6 fL 35.1-43.9 [facility] Work Phone: [phone] Erythrocyte distribution width (RBC) [Ratio] 12.5 % 11.6-14.6 [facility] Work Phone: [phone] Immature granulocytes/100 WBC (Bld) 0.500 % 0.0-0.9 [facility] Work Phone: [phone] Comment on above: IG% - Immature Granu locytes (promyelocytes, myelocytes and metamyelocytes) > 1% indicates that a LEFT SHIFT is Present. MCH (RBC) [Entitic mass] 29.4 pg 27.0-32.0 [facility] Work Phone: [phone] Nucleated RBC/100 WBC (Bld) [Ratio] 0 % 0-5 [facility] Work Phone: [phone] MCHC Auto (RBC) [Mass/Vol]on 02-12-2022 MCHC (RBC) [Mass/Vol] 33.0 g/dL 32-36 [facility] Work Phone: No Panel Informationon 02-12 Estimated GFR (MDRD) Amer 95 mL/min >60 [facility] Work Phone: Comment on above: GFR Calc Estimated GFR (MDRD) Non-Af Amer 78 mL/min >60 [facility] Work Phone: Comment on above: Non- GFR Calc Platelets bldon 02-12-2022 Platelets (Bld) [#/Vol] 252 10*3/uL 150-450 [facility] Work Phone: Serum or plasma albumin ruben urement (mass/volume)on 02-12-2022 Albumin [Mass/Vol] 4.1 g/dL 3.2-5.0 [facility] Work Phone: Serum or plasma albumin/glob ulin mass ratioon 02-12-2022 Albumin/Globulin [Mass ratio] 1.2 {ratio} 0.9-2.4 [facility] Work Phone: Serum or plasma calcium ruben urement (mass/volume)on 02-12-2022 Calcium [Mass/Vol] 9.7 mg/dL 8.5-10.1 [facility] Work Phone: Serum or plasma creatinine m easurement (mass/volume)on 02-12-2022 Creatinine [Mass/Vol] 1.05 mg/dL 0.70-1.30 [facility] Work Phone: Comment on above: The validity of the calculated GFR & GFRAA in patients over 70 years has not been determined. Clinical correlation is essential. Serum or plasma urea nitroge n measurement (mass/volume)on 02-12-2022 Urea nitrogen [Mass/Vol] 20 mg/dL 7-18 [facility] Work Phone: Thin prep Papanicolaou smear with manual screeningon 02-12-2022 Thin prep Papanicolaou smear with manual screening 19 U/L 15-37 [facility] Work Phone: [phone] Thin prep Papanicolaou smear with manual screening 7 5-15 [facility] Work Phone: Brent 02-16-2019 CN Office Visit ([facility] ) LYN SANCHEZ ([id number]) 1970 M Date Time Provider Department 02/16/19 12:30 PM [facility]EMAN[facility]ORALEZ[facility] During your visit today, we recorded the following information about you: Temperature Pulse Respiration Blood pressure 98.1 degrees 84/minute 16/minute 136/78 Weight 131.1 kg Hemanth Moralez PA-C 02/16/2019 2:30 PM Signed Subjective HPI HPI Lyn Sanchez is a 48 year old male who presents today for CC of sore throat, nasal congestion, and cough that started 5 days ago. Cough is worse at night. Seems to be more productive in the AM- but then becomes more of a tickle/dry. Pt has tried Nyquil, which seemed to work initially but hasn't worked as well the past few days. BP 136/78 Pulse 84 Temp 36.7 ?C (98.1 ?F) (Tympanic) Resp 16 Wt 131.1 kg (289 lb) SpO2 96% BMI 42.07 kg/m? ALLERGIES No Known Allergies ACTIVE PROBLEM LIST Unspecified Essential Hypertension Pure Hyperglyceridemia Obesity, Class Iii, Bmi 40-49.9 (Morbid Obesity) (Hcc) Gout, Unspecified Ventral Hernia, Unspecified, Without Mention of Obstruction Or Gangrene Family History Problem Relation Age of Onset - Hypertension Father - Diabetes Father - Cancer Maternal Grandfather - Cancer Father Bladder - Cancer Mother Lung Social History Tobacco Use - Smoking status: Never Smoker - Smokeless tobacco: Never Used - Tobacco comment: Was a passive smoker while in the [employer]. Substance Use Topics - Alcohol use: Yes Comment: very rare - Drug use: No Review of Systems Constitutional: Negative for chills, fever and malaise/fatigue. HENT: Positive for congestion and sore throat. Negative for ear pain and sinus pain. Respiratory: Positive for cough and sputum production (Intermittently productive ). Negative for shortness of breath and wheezing. Cardiovascular: Negative for chest pain. Neurological: Negative for headaches. Objective Physical Exam Constitutional: He is oriented to person, place, and time and well-developed, well-nourished, and in no distress. HENT: Head: Normocephalic and atraumatic. Right Ear: Tympanic membrane, external ear and ear canal normal. Tympanic membrane is not injected, not perforated, not erythematous, not retracted and not bulging. No middle ear effusion. Left Ear: Tympanic membrane, external ear and ear canal normal. Tympanic membrane is not injected, not perforated, not erythematous, not retracted and not bulging. No middle ear effusion. Nose: No mucosal edema or rhinorrhea. Right sinus exhibits no maxillary sinus tenderness and no frontal sinus tenderness. Left sinus exhibits no maxillary sinus tenderness and no frontal sinus tenderness. Mouth/Throat: Uvula is midline and mucous membranes are normal. Posterior oropharyngeal edema and posterior oropharyngeal erythema (Mildly injected) present. No oropharyngeal exudate or tonsillar abscesses. Neck: Normal range of motion. Cardiovascular: Normal rate, regular rhythm and normal heart sounds. Pulmonary/Chest: Effort normal and breath sounds normal. He has no decreased breath sounds. He has no wheezes. He has no rhonchi. He has no rales. Lymphadenopathy: Head (right side): No submental, no submandibular, no tonsillar, no preauricular, no posterior auricular and no occipital adenopathy present. Head (left side): No submental, no submandibular, no tonsillar, no preauricular, no posterior auricular and no occipital adenopathy present. He has no cervical adenopathy. Right cervical: No superficial cervical and no posterior cervical adenopathy present. Left cervical: No superficial cervical and no posterior cervical adenopathy present. Neurological: He is alert and oriented to person, place, and time. Skin: Skin is warm and dry. Psychiatric: Affect normal. Nursing note and vitals reviewed. ASSESSMENT/PLAN: 1. Viral URI with cough - ICD9: 465.9, ICD10: J06.9, B97.89 (primary diagnosis) - Discussed viral etiology and rationale for treatment. - Rapid strep negative in office today - Symptomatic treatment with prn analgesia - Supportive care with fluids and rest - The patient may also use warm salt water gargles, throat lozenges and/or OTC throat spray as needed. - Follow up in 3-5 days if symptoms persist or sooner if worsening of symptoms - RAPID STREP TEST B/O 2. Sore throat - ICD9: 462, ICD10: J02.9 - suspect viral- Rapid Strep negative in the office today - See above - RAPID STREP TEST B/O Pt advised to see PCP if symptoms persist or progress. Reviewed red flags with patient and when to seek care sooner. The patient indicates understanding of these issues and agrees with the plan. DIANE Jackson PA-C 02/16/2019 1:17 PM Signed PHARYNGITIS BASIC INFORMATION Description: Inflammation and infection of the pharynx that can be caused by a variety of germs. Frequent Signs and Symptoms: - Sore throat. - Swallowing difficulty. - Tickle or lump in the throat. - Fever. - Swollen glands in the neck (sometimes). - Throat may be red or covered with a grayish membrane (sometimes). - Generalized aching. Causes: Infection from bacteria, viruses, or fungi. Following are the most common possibilities: - Bacteria: streptococci, gonococci, haemophilus, pneumococci, or staphylococci. - Viruses: Raymond-Sepulveda and many types of respiratory viruses. - Fungi: monilial. Risk Increases With: - Illness that has lowered resistance. - Fatigue or overwork. - Diabetes mellitus. - Immune deficiencies. - Smoking. - Excess alcohol consumption. - Oral sex. - Epidemics, during which all persons are at increased risk. - Close quarters, such as in recruits, schools, day care centers. Preventive Measures: - Avoid close contact with anyone with a sore throat. - Keep immunizations, including diphtheria, up to date. Expected Outcome: - Spontaneous recovery for most cases of viral pharyngitis. - Other cases are curable with antibiotic or antifungal drugs. Possible Complications: - Epiglottitis, leading to complete breathing obstruction. - Pneumonia. - Rheumatic fever, scarlet fever or glomerulonephritis, if pharyngitis is caused by strep bacteria and does not receive adequate antibiotic treatment. - Ear infection. - Sinusitis or rhinitis. TREATMENT General Measures: - Laboratory throat culture and blood count may be done to determine type of infection. - Home care is usually sufficient. - Hospitalization for pharyngitis caused by diphtheria or hemophilus bacteria. - Use gargles to relieve throat pain. Prepare double-strength tea, hot or cold, or a salt-water solution (1 teaspoon salt in 8 oz. warm water). Use to gargle as often as you wish. - Use a cool-mist, ultrasonic humidifier to increase air moisture. This will relieve the dry, tight feeling in the throat. Clean humidifier daily. - If the glands are large and tender, apply moist, warm soaks at least 4 times a day for 30 to 60 minutes. The compresses will be more effective if they are kept warm. Be careful not to burn the skin. - Replace your toothbrush. It may harbor germs. - Until infection is gone, use separate washcloths; don't share food. Medication: - For minor discomfort, you may use non-prescription drugs such as acetaminophen. Don't give aspirin to a child for any viral illness. Studies link its use with the development of Jeremias's syndrome. - Non-prescription throat lozenges may help ease discomfort. - Antibiotics or antifungal agents to fight bacterial or fungal infections. Be sure to finish entire course of prescribed antibiotics to avoid complications to heart or kidney. Activity: -Limited activity is necessary until symptoms disappear. Diet: - Extra fluids are necessary. Drink at least 8 glasses of fluid daily, more for high fevers. - If swallowing solid food is painful, try a liquid or soft diet for a few days. NOTIFY OUR OFFICE IF: - You have symptoms of pharyngitis. - The following occur during treatment: Breathing or swallowing difficulty. Fever; severe headache. Thick mucus drainage from the nose. Cough that produces green, yellow, brown, or bloody sputum. Skin rash. Dark urine. Chest pain. Copyright 1994 by [employer] Referring Provider: SELF [[id number]] Allergies As of Date: 02/16/2019 (No Known Allergies) Date Reviewed: 02/16/2019 Reviewed by: Jenny Waldron Ma - Fully Assessed Reason for Visit: Cough [28] Cmt: nasal congestion and drainage x 5 days Primary Visit Diagnosis:Viral URI with cough [J06.9, B97.89] Other Visit Diagnosis:Sore throat [J02.9] Order(s):RAPID STREP TEST B/O [6036129] Order #: [id number] Prescriptions as of 02/16/2019 Sig: PLAQUENIL ORAL Take by mouth. LISINOPRIL 40 MG TABLET Take 1 tablet by mouth once d* BENZONATATE 100 MG CAPSULE Take 1 capsule by mouth three* Patient not taking: Reported on 02/16/2019 ALBUTEROL SULFATE HFA 90 MCG/* Inhale 2 Puffs as instructed * Patient not taking: Reported on 02/16/2019 GUAIFENESIN ER 600 MG TABLET,* Take 2 tablets by mouth twice* Patient not taking: Reported on 02/16/2019 INDOMETHACIN 50 MG CAPSULE Take 1 capsule by mouth three* Patient not taking: Reported on 02/16/2019 Problem List As Of Date 02/16/2019 Noted Resolved HYPERTENSION NOS [I10] PURE HYPERGLYCERIDEMIA [E78.1] 03/15/2007 More... Obesity, Class III, BMI 40-49.9 (morbid obesity*03/15/2007 Gout, Unspecified [M10.9] 12/06/2007 More... Ventral hernia [K43.9] 04/28/2011 More... Other instructions from your clinician: PHARYNGITIS BASIC INFORMATION Description: Inflammation and infection of the pharynx that can be caused by a variety of germs. Frequent Signs and Symptoms: - Sore throat. - Swallowing difficulty. - Tickle or lump in the throat. - Fever. - Swollen glands in the neck (sometimes). - Throat may be red or covered with a grayish membrane (sometimes). - Generalized aching. Causes: Infection from bacteria, viruses, or fungi. Following are the most common possibilities: - Bacteria: streptococci, gonococci, haemophilus, pneumococci, or staphylococci. - Viruses: Raymond-Sepulveda and many types of respiratory viruses. - Fungi: monilial. Risk Increases With: - Illness that has lowered resistance. - Fatigue or overwork. - Diabetes mellitus. - Immune deficiencies. - Smoking. - Excess alcohol consumption. - Oral sex. - Epidemics, during which all persons are at increased risk. - Close quarters, such as in recruits, schools, day care centers. Preventive Measures: - Avoid close contact with anyone with a sore throat. - Keep immunizations, including diphtheria, up to date. Expected Outcome: - Spontaneous recovery for most cases of viral pharyngitis. - Other cases are curable with antibiotic or antifungal drugs. Possible Complications: - Epiglottitis, leading to complete breathing obstruction. - Pneumonia. - Rheumatic fever, scarlet fever or glomerulonephritis, if pharyngitis is caused by strep bacteria and does not receive adequate antibiotic treatment. - Ear infection. - Sinusitis or rhinitis. TREATMENT General Measures: - Laboratory throat culture and blood count may be done to determine type of infection. - Home care is usually sufficient. - Hospitalization for pharyngitis caused by diphtheria or hemophilus bacteria. - Use gargles to relieve throat pain. Prepare double-strength tea, hot or cold, or a salt-water solution (1 teaspoon salt in 8 oz. warm water). Use to gargle as often as you wish. - Use a cool-mist, ultrasonic humidifier to increase air moisture. This will relieve the dry, tight feeling in the throat. Clean humidifier daily. - If the glands are large and tender, apply moist, warm soaks at least 4 times a day for 30 to 60 minutes. The compresses will be more effective if they are kept warm. Be careful not to burn the skin. - Replace your toothbrush. It may harbor germs. - Until infection is gone, use separate washcloths; don't share food. Medication: - For minor discomfort, you may use non-prescription drugs such as acetaminophen. Don't give aspirin to a child for any viral illness. Studies link its use with the development of Jeremias's syndrome. - Non-prescription throat lozenges may help ease discomfort. - Antibiotics or antifungal agents to fight bacterial or fungal infections. Be sure to finish entire course of prescribed antibiotics to avoid complications to heart or kidney. Activity: -Limited activity is necessary until symptoms disappear. Diet: - Extra fluids are necessary. Drink at least 8 glasses of fluid daily, more for high fevers. - If swallowing solid food is painful, try a liquid or soft diet for a few days. NOTIFY OUR OFFICE IF: - You have symptoms of pharyngitis. - The following occur during treatment: Breathing or swallowing difficulty. Fever; severe headache. Thick mucus drainage from the nose. Cough that produces green, yellow, brown, or bloody sputum. Skin rash. Dark urine. Chest pain. Copyright 1993 by [employer] Encounter Status:Closed by HEMANTH MORALEZ on 02/16/19 Normal [facility] PROGRESSon 02-16-2019 PROGRESS HNO ID: [id number] Author: Hemanth Moralez (Pa) Service: ? Author Type: Physician High Rigger Type: Progress Notes Filed: 02/16/2019 2:30 PM Note Text: Subjective HPI HPI Lyn Sanchez is a 48 year old male who presents today for CC of sore throat, nasal congestion, and cough that started 5 days ago. Cough is worse at night. Seems to be more productive in the AM- but then becomes more of a tickle/dry. Pt has tried Nyquil, which seemed to work initially but hasn't worked as well the past few days. BP 136/78 Pulse 84 Temp 36.7 ?C (98.1 ?F) (Tympanic) Resp 16 Wt 131.1 kg (289 lb) SpO2 96% BMI 42.07 kg/m? ALLERGIES No Known Allergies ACTIVE PROBLEM LIST Unspecified Essential Hypertension Pure Hyperglyceridemia Obesity, Class Iii, Bmi 40-49.9 (Morbid Obesity) (Hcc) Gout, Unspecified Ventral Hernia, Unspecified, Without Mention of Obstruction Or Gangrene Family History Problem Relation Age of Onset - Hypertension Father - Diabetes Father - Cancer Maternal Grandfather - Cancer Father Bladder - Cancer Mother Lung Social History Tobacco Use - Smoking status: Never Smoker - Smokeless tobacco: Never Used - Tobacco comment: Was a passive smoker while in the [employer]. Substance Use Topics - Alcohol use: Yes Comment: very rare - Drug use: No Review of Systems Constitutional: Negative for chills, fever and malaise/fatigue. HENT: Positive for congestion and sore throat. Negative for ear pain and sinus pain. Respiratory: Positive for cough and sputum production (Intermittently productive ). Negative for shortness of breath and wheezing. Cardiovascular: Negative for chest pain. Neurological: Negative for headaches. Objective Physical Exam Constitutional: He is oriented to person, place, and time and well-developed, well-nourished, and in no distress. HENT: Head: Normocephalic and atraumatic. Right Ear: Tympanic membrane, external ear and ear canal normal. Tympanic membrane is not injected, not perforated, not erythematous, not retracted and not bulging. No middle ear effusion. Left Ear: Tympanic membrane, external ear and ear canal normal. Tympanic membrane is not injected, not perforated, not erythematous, not retracted and not bulging. No middle ear effusion. Nose: No mucosal edema or rhinorrhea. Right sinus exhibits no maxillary sinus tenderness and no frontal sinus tenderness. Left sinus exhibits no maxillary sinus tenderness and no frontal sinus tenderness. Mouth/Throat: Uvula is midline and mucous membranes are normal. Posterior oropharyngeal edema and posterior oropharyngeal erythema (Mildly injected) present. No oropharyngeal exudate or tonsillar abscesses. Neck: Normal range of motion. Cardiovascular: Normal rate, regular rhythm and normal heart sounds. Pulmonary/Chest: Effort normal and breath sounds normal. He has no decreased breath sounds. He has no wheezes. He has no rhonchi. He has no rales. Lymphadenopathy: Head (right side): No submental, no submandibular, no tonsillar, no preauricular, no posterior auricular and no occipital adenopathy present. Head (left side): No submental, no submandibular, no tonsillar, no preauricular, no posterior auricular and no occipital adenopathy present. He has no cervical adenopathy. Right cervical: No superficial cervical and no posterior cervical adenopathy present. Left cervical: No superficial cervical and no posterior cervical adenopathy present. Neurological: He is alert and oriented to person, place, and time. Skin: Skin is warm and dry. Psychiatric: Affect normal. Nursing note and vitals reviewed. ASSESSMENT/PLAN: 1. Viral URI with cough - ICD9: 465.9, ICD10: J06.9, B97.89 (primary diagnosis) - Discussed viral etiology and rationale for treatment. - Rapid strep negative in office today - Symptomatic treatment with prn analgesia - Supportive care with fluids and rest - The patient may also use warm salt water gargles, throat lozenges and/or OTC throat spray as needed. - Follow up in 3-5 days if symptoms persist or sooner if worsening of symptoms - RAPID STREP TEST B/O 2. Sore throat - ICD9: 462, ICD10: J02.9 - suspect viral- Rapid Strep negative in the office today - See above - RAPID STREP TEST B/O Pt advised to see PCP if symptoms persist or progress. Reviewed red flags with patient and when to seek care sooner. The patient indicates understanding of these issues and agrees with the plan. Hemanth Moralez PA-C [facility] CNOVon 04-28-2018 CNOV Office Visit (UCWSTR ) LYN SANCHEZ ([id number]) 1970 Date Time Provider Department 04/28/18 10:00 AM LAURA COSBY [facility] During your visit today, we recorded the following information about you: Temperature Pulse Respiration Blood pressure 98.5 degrees 89/minute 18/minute 100/70 Weight 132.5 kg Laura Cosby APRN.MEDICARE NURSE 04/28/2018 10:38 AM Signed [facility] PATIENT INFO BRONCHITIS OVERVIEW Bronchitis develops when there is swelling and irritation of the bronchi, the large tubes that carry air to the lungs. There are two types of bronchitis: acute (sudden onset) and chronic (long-standing). Acute bronchitis often occurs with a viral infection, such as the common cold, and is sometimes called a chest cold. The most common symptom of acute bronchitis is a nagging cough. Treatment of acute bronchitis usually involves treating the symptoms, such as sore throat and congestion. Antibiotics do not help to eliminate acute bronchitis caused by a virus. Antiviral agents are useful in some cases of acute bronchitis due to influenza, but there are antiviral agents for other forms of viral bronchitis. BRONCHITIS CAUSES Most cases of bronchitis are caused by a viral infection of the upper airways, such as the common cold or the flu. Less commonly, a bacterium such as pertussis (whooping cough) is the cause. BRONCHITIS SYMPTOMS The most common symptoms of acute bronchitis include: ? A persistent cough; this may last 10 to 20 days ? Some people cough up mucus, which may be clear, yellow, or green in color Fever is not common in people with acute bronchitis. However, having a fever can be a sign of another condition, such as the flu or pneumonia. Conditions with similar features ? There are other conditions that have symptoms similar to those of acute bronchitis. ? Chronic cough ? A persistent cough that lasts more than eight weeks is considered a chronic cough, which is discussed in detail elsewhere. ? Chronic bronchitis ? Chronic bronchitis is defined as a cough that occurs on most days of the month for at least three months of the year during two consecutive years. ? Pneumonia ? Signs of pneumonia include fever and a fast heart and breathing rate. ? Postnasal drip ? Postnasal drip occurs when secretions drain from the sinuses into the throat. This can cause the throat to feel irritated, which causes you to feel like you need to clear your throat frequently. Postnasal drip can be caused by the common cold, allergies, sinusitis, or environmental irritants. BRONCHITIS DIAGNOSIS Most people who have a persistent cough after an upper respiratory infection (cold) do not need to see a healthcare provider. Diagnostic testing, such as x-rays, cultures, and blood tests, are not usually needed for people with acute bronchitis. However, testing may be recommended if your diagnosis is not clear based upon your examination or if another condition, such as pneumonia, is suspected. When to seek help ? You should call your healthcare provider if you have any of the following: ? Fever (temperature greater than 100.4? F or 38? C) ? A cough that lasts longer than 10 days ? Chest pain with coughing, difficulty breathing, or coughing up blood ? A barking cough that makes it hard to speak, especially if it persists ? Cough accompanied by unexplained weight loss People who are older than 75 do not always have a fever or other concerning symptoms. If you are over 75 years and you have a persistent cough, you should call your clinician to determine if and when an office visit is recommended. BRONCHITIS TREATMENT Relief of symptoms ? There is no specific treatment for bronchitis, but there are a few treatments available for the common cold. ? A nonsteroidal antiinflammatory drug (ibuprofen, naproxen), aspirin, or acetaminophen (Tylenol?) can help to relieve the pain of a sore throat or headache. ? Pseudoephedrine is a decongestant that can improve nasal congestion. Most drugstores in the [place] carry pseudoephedrine behind the counter, so you must ask for it from the pharmacist (a prescription is not required). Other decongestants, such as phenylephrine, are not as effective as pseudoephedrine. Antihistamines such as diphenhydramine (Benadryl?) may also help, but can cause side effects such as drowsiness and drying of the eyes, nose, and mouth. ? Heated, humidified, air can improve symptoms of nasal congestion and runny nose, and has few to no side effects. ? Cough suppressants such as dextromethorphan may be helpful. Antibiotics ? Antibiotics are NOT helpful for most people with bronchitis since the illness is typically caused by a virus. Antibiotics treat bacterial, not viral infections. Antibiotics may be helpful for some patients with other chronic diseases. Many people request antibiotics in the hopes that it will get rid of the cough, and some people even think that antibiotics have helped on previous occasions. However, there is no benefit of antibiotics for most cases of bronchitis. PREVENTING THE SPREAD OF ILLNESS Hand washing is an essential and highly effective way to prevent the spread of infection. Wet your hands with water and plain soap and rub them together for 15 to 30 seconds. Pay special attention to the fingernails, between the fingers, and the wrists. Rinse your hands thoroughly, and dry with a single use towel. Alcohol-based hand rubs are a good alternative for disinfecting hands if a sink is not available. Spread the hand rub over the entire surface of your hands, fingers, and wrists until dry. You can use hand rubs repeatedly without irritating the skin or losing effectiveness. Hand rubs are available as a liquid or wipe in small, portable sizes that are easy to carry in a pocket or handbag. When a sink is available, you should wash visibly soiled hands with soap and water. Wash your hands before preparing food and eating, and after going to the bathroom, and after coughing, blowing the nose, or sneezing. While it is not always possible to limit contact with people who are ill, avoid touching your eyes, nose, or mouth after direct contact, when possible. In addition, use a tissue to cover your mouth when sneezing or coughing. Throw away used tissues promptly and then wash your hands. Sneezing/coughing into the sleeve of your clothing (at the inner elbow) is another way of containing sprays of saliva and secretions and does not contaminate your hands. Sneezing and coughing without covering your mouth can spread infection to anyone within 6 feet. Laura Cosby APRN.MEDICARE NURSE 04/28/2018 10:59 AM Signed Subjective HPI Pt presents with c/o frequent, moist, nonproductive cough, wheezing and runny nose x 6 days. Had fever, chills, myalgias on days 1-3. Several coughing fits/day with chest tightness. Possibly had fever and diaphoresis last night. Denies fever, chills, myalgias, dyspnea, increased WOB. Has taken several doses of mucinex with minimal improvement. Did not receive influenza vaccine this season. Has not been given any OTC medications. NO hx asthma. Exposed to sick contacts at work. Review of Systems Constitutional: Negative for chills and fever. HENT: Positive for congestion. Negative for ear discharge, ear pain, sinus pain, sore throat and tinnitus. Respiratory: Positive for cough and wheezing. Negative for sputum production and shortness of breath. Cardiovascular: Negative for chest pain. Skin: Negative for rash. Neurological: Negative for headaches. Objective Physical Exam Constitutional: He is oriented to person, place, and time and well-developed, well-nourished, and in no distress. No distress. HENT: Head: Normocephalic. Right Ear: Hearing, tympanic membrane, external ear and ear canal normal. Left Ear: Hearing, tympanic membrane, external ear and ear canal normal. Nose: Nose normal. Right sinus exhibits no maxillary sinus tenderness and no frontal sinus tenderness. Left sinus exhibits no maxillary sinus tenderness and no frontal sinus tenderness. Mouth/Throat: Uvula is midline, oropharynx is clear and moist and mucous membranes are normal. No oropharyngeal exudate. Eyes: Pupils are equal, round, and reactive to light. Conjunctivae are normal. Right eye exhibits no discharge. Left eye exhibits no discharge. Neck: Neck supple. Cardiovascular: Normal rate, regular rhythm and normal heart sounds. Exam reveals no gallop and no friction rub. No murmur heard. Pulmonary/Chest: Effort normal. No accessory muscle usage. No respiratory distress. He has decreased breath sounds (Good air movement throughout. Pulse ox 98%). He has wheezes. He has rhonchi (scattered rhonchi). He has no rales. Lymphadenopathy: He has no cervical adenopathy. Neurological: He is alert and oriented to person, place, and time. Skin: Skin is warm and dry. He is not diaphoretic. BP 100/70 Pulse 89 Temp 36.9 ?C (98.5 ?F) (Left Tympanic) Resp 18 Wt 132.5 kg (292 lb) SpO2 97% BMI 42.50 kg/m? .Patient presents with: Viral Syndrome PAST MEDICAL HISTORY Diagnosis Date - Obesity, unspecified 03/15/2007 - Pure hyperglyceridemia 03/15/2007 - Unspecified essential hypertension PAST SURGICAL HISTORY Procedure Laterality Date - APPENDECTOMY 1990 [facility] ALLERGIES Patient has no known allergies. MEDICATIONS hydroxychloroquine sulfate (PLAQUENIL ORAL) Take by mouth. lisinopril 40 mg tablet Take 1 tablet by mouth once daily. predniSONE (DELTASONE) 20 mg tablet Take 2 tablets by mouth once daily for 5 days. Take daily with food. benzonatate (TESSALON PERLE) 100 mg capsule Take 1 capsule by mouth three times daily as needed. albuterol HFA (PROVENTIL HFA, VENTOLIN HFA) 90 mcg/actuation inhaler Inhale 2 Puffs as instructed every 4 hours as needed. Inhalational Spacing Device spcr 1 Device one time only for 1 dose. guaiFENesin (MUCINEX) 600 mg 12 hr tablet Take 2 tablets by mouth twice daily. indomethacin 50 mg ORAL capsule Take 1 capsule by mouth three times daily with meals. As needed for gout FAMILY HISTORY Problem Relation Age of Onset - Hypertension Father - Diabetes Father - Cancer Maternal Grandfather - Cancer Father Bladder - Cancer Mother Lung Social History Substance Use Topics - Smoking status: Never Smoker - Smokeless tobacco: Never Used Comment: Was a passive smoker while in the [employer]. - Alcohol use Yes Comment: very rare ASSESSMENT/PLAN: 1. Bronchitis - ICD9: 490, ICD10: J40 (primary diagnosis) PREDNISONE 20 MG TABLET - ALBUTEROL SULFATE HFA 90 MCG/ACTUATION AEROSOL INHALER - INHALATIONAL SPACING DEVICE 2. Cough - ICD9: 786.2, ICD10: R05 - XR CHEST 2V FRONTAL/LAT No acute process. - BENZONATATE 100 MG CAPSULE - GUAIFENESIN ER 600 MG TABLET, EXTENDED RELEASE 12 HR 3. Fever, unspecified fever cause - ICD9: 780.60, ICD10: R50.9 The patient is instructed to return or seek emergency treatment if symptoms become worse or with any acute change in condition. The patient verbalizes understanding and is in agreement with plan of care. Laura Cosby CNP Referring Provider: SELF [[id number]] Allergies As of Date: 04/28/2018 (No Known Allergies) Date Reviewed: 04/28/2018 Reviewed by: Racquel Dior Ma - Fully Assessed Reason for Visit: Viral Syndrome [119] Reason For Visit History Recorded Primary Visit Diagnosis:Bronchitis [J40] Other Visit Diagnoses:Cough [R05] Fever, unspecified fever cause [R50.9] Order(s):XR CHEST 2V FRONTAL/LAT [[id number]] Order #: [id number] FUTURE predniSONE (DELTASONE) 20 mg tabletTake 2 tablets by mouth once daily for 5 days. Take daily with food.Disp: 10 tabletRfl: 0 benzonatate (TESSALON PERLE) 100 mg capsuleTake 1 capsule by mouth three times daily as needed.Disp: 60 capsuleRfl: 0 albuterol HFA (PROVENTIL HFA, VENTOLIN HFA) 90 mcg/actuation inhalerInhale 2 Puffs as instructed every 4 hours as needed.Disp: 1 InhalerRfl: 0 Inhalational Spacing Device spcr1 Device one time only for 1 dose.Disp: 1 EachRfl: 0 guaiFENesin (MUCINEX) 600 mg 12 hr tabletTake 2 tablets by mouth twice daily.Disp: 30 tabletRfl: 0 Prescriptions as of 04/28/2018 Sig: PLAQUENIL ORAL Take by mouth. LISINOPRIL 40 MG TABLET Take 1 tablet by mouth once d* PREDNISONE 20 MG TABLET Take 2 tablets by mouth once * BENZONATATE 100 MG CAPSULE Take 1 capsule by mouth three* ALBUTEROL SULFATE HFA 90 MCG/* Inhale 2 Puffs as instructed * INHALATIONAL SPACING DEVICE 1 Device one time only for 1 * GUAIFENESIN ER 600 MG TABLET,* Take 2 tablets by mouth twice* INDOMETHACIN 50 MG CAPSULE Take 1 capsule by mouth three* Problem List As Of Date 04/28/2018 Noted Resolved HYPERTENSION NOS [I10] PURE HYPERGLYCERIDEMIA [E78.1] INVALID FOR* More... Obesity, Class III, BMI 40-49.9 (morbid obesity*INVALID FOR* Gout, Unspecified [M10.9] INVALID FOR* More... Ventral hernia [K43.9] INVALID FOR* More... Other instructions from your clinician: [facility] PATIENT INFO BRONCHITIS OVERVIEW Bronchitis develops when there is swelling and irritation of the bronchi, the large tubes that carry air to the lungs. There are two types of bronchitis: acute (sudden onset) and chronic (long-standing). Acute bronchitis often occurs with a viral infection, such as the common cold, and is sometimes called a chest cold. The most common symptom of acute bronchitis is a nagging cough. Treatment of acute bronchitis usually involves treating the symptoms, such as sore throat and congestion. Antibiotics do not help to eliminate acute bronchitis caused by a virus. Antiviral agents are useful in some cases of acute bronchitis due to influenza, but there are antiviral agents for other forms of viral bronchitis. BRONCHITIS CAUSES Most cases of bronchitis are caused by a viral infection of the upper airways, such as the common cold or the flu. Less commonly, a bacterium such as pertussis (whooping cough) is the cause. BRONCHITIS SYMPTOMS The most common symptoms of acute bronchitis include: ? A persistent cough; this may last 10 to 20 days ? Some people cough up mucus, which may be clear, yellow, or green in color Fever is not common in people with acute bronchitis. However, having a fever can be a sign of another condition, such as the flu or pneumonia. Conditions with similar features ? There are other conditions that have symptoms similar to those of acute bronchitis. ? Chronic cough ? A persistent cough that lasts more than eight weeks is considered a chronic cough, which is discussed in detail elsewhere. ? Chronic bronchitis ? Chronic bronchitis is defined as a cough that occurs on most days of the month for at least three months of the year during two consecutive years. ? Pneumonia ? Signs of pneumonia include fever and a fast heart and breathing rate. ? Postnasal drip ? Postnasal drip occurs when secretions drain from the sinuses into the throat. This can cause the throat to feel irritated, which causes you to feel like you need to clear your throat frequently. Postnasal drip can be caused by the common cold, allergies, sinusitis, or environmental irritants. BRONCHITIS DIAGNOSIS Most people who have a persistent cough after an upper respiratory infection (cold) do not need to see a healthcare provider. Diagnostic testing, such as x-rays, cultures, and blood tests, are not usually needed for people with acute bronchitis. However, testing may be recommended if your diagnosis is not clear based upon your examination or if another condition, such as pneumonia, is suspected. When to seek help ? You should call your healthcare provider if you have any of the following: ? Fever (temperature greater than 100.4? F or 38? C) ? A cough that lasts longer than 10 days ? Chest pain with coughing, difficulty breathing, or coughing up blood ? A barking cough that makes it hard to speak, especially if it persists ? Cough accompanied by unexplained weight loss People who are older than 75 do not always have a fever or other concerning symptoms. If you are over 75 years and you have a persistent cough, you should call your clinician to determine if and when an office visit is recommended. BRONCHITIS TREATMENT Relief of symptoms ? There is no specific treatment for bronchitis, but there are a few treatments available for the common cold. ? A nonsteroidal antiinflammatory drug (ibuprofen, naproxen), aspirin, or acetaminophen (Tylenol?) can help to relieve the pain of a sore throat or headache. ? Pseudoephedrine is a decongestant that can improve nasal congestion. Most drugstores in the [place] carry pseudoephedrine behind the counter, so you must ask for it from the pharmacist (a prescription is not required). Other decongestants, such as phenylephrine, are not as effective as pseudoephedrine. Antihistamines such as diphenhydramine (Benadryl?) may also help, but can cause side effects such as drowsiness and drying of the eyes, nose, and mouth. ? Heated, humidified, air can improve symptoms of nasal congestion and runny nose, and has few to no side effects. ? Cough suppressants such as dextromethorphan may be helpful. Antibiotics ? Antibiotics are NOT helpful for most people with bronchitis since the illness is typically caused by a virus. Antibiotics treat bacterial, not viral infections. Antibiotics may be helpful for some patients with other chronic diseases. Many people request antibiotics in the hopes that it will get rid of the cough, and some people even think that antibiotics have helped on previous occasions. However, there is no benefit of antibiotics for most cases of bronchitis. PREVENTING THE SPREAD OF ILLNESS Hand washing is an essential and highly effective way to prevent the spread of infection. Wet your hands with water and plain soap and rub them together for 15 to 30 seconds. Pay special attention to the fingernails, between the fingers, and the wrists. Rinse your hands thoroughly, and dry with a single use towel. Alcohol-based hand rubs are a good alternative for disinfecting hands if a sink is not available. Spread the hand rub over the entire surface of your hands, fingers, and wrists until dry. You can use hand rubs repeatedly without irritating the skin or losing effectiveness. Hand rubs are available as a liquid or wipe in small, portable sizes that are easy to carry in a pocket or handbag. When a sink is available, you should wash visibly soiled hands with soap and water. Wash your hands before preparing food and eating, and after going to the bathroom, and after coughing, blowing the nose, or sneezing. While it is not always possible to limit contact with people who are ill, avoid touching your eyes, nose, or mouth after direct contact, when possible. In addition, use a tissue to cover your mouth when sneezing or coughing. Throw away used tissues promptly and then wash your hands. Sneezing/coughing into the sleeve of your clothing (at the inner elbow) is another way of containing sprays of saliva and secretions and does not contaminate your hands. Sneezing and coughing without covering your mouth can spread infection to anyone within 6 feet. Prescriptions ordered this encounter Disp Refills Start End PREDNISONE 20 MG TABLET 10 t* 0 04/28/2018 05/03/2018 Route: ORAL Sig: Take 2 tablets by mouth once daily for 5 days. Take daily with food. BENZONATATE 100 MG CAPSULE 60 c* 0 04/28/2018 Route: ORAL Sig: Take 1 capsule by mouth three times daily as needed. ALBUTEROL SULFATE HFA 90 MCG/ACTUATI* 1 In* 0 04/28/2018 Route: INHALATION Sig: Inhale 2 Puffs as instructed every 4 hours as needed. INHALATIONAL SPACING DEVICE 1 Ea* 0 04/28/2018 04/28/2018 Route: Misc Si Device one time only for 1 dose. GUAIFENESIN ER 600 MG TABLET, EXTEND* 30 t* 0 04/28/2018 Route: ORAL Sig: Take 2 tablets by mouth twice daily. Encounter Status:Closed by LAURA COSBY CNP on 04/28/18 [facility] PROGRESSon 04-28-2018 PROGRESS HNO ID: [id number] Author: Laura Cosby Service: (none) Author Type: Nurse Practitioner Type: Progress Notes Filed: 04/28/2018 10:59 AM Note Text: Subjective HPI Pt presents with c/o frequent, moist, nonproductive cough, wheezing and runny nose x 6 days. Had fever, chills, myalgias on days 1-3. Several coughing fits/day with chest tightness. Possibly had fever and diaphoresis last night. Denies fever, chills, myalgias, dyspnea, increased WOB. Has taken several doses of mucinex with minimal improvement. Did not receive influenza vaccine this season. Has not been given any OTC medications. NO hx asthma. Exposed to sick contacts at work. Review of Systems Constitutional: Negative for chills and fever. HENT: Positive for congestion. Negative for ear discharge, ear pain, sinus pain, sore throat and tinnitus. Respiratory: Positive for cough and wheezing. Negative for sputum production and shortness of breath. Cardiovascular: Negative for chest pain. Skin: Negative for rash. Neurological: Negative for headaches. Objective Physical Exam Constitutional: He is oriented to person, place, and time and well-developed, well-nourished, and in no distress. No distress. HENT: Head: Normocephalic. Right Ear: Hearing, tympanic membrane, external ear and ear canal normal. Left Ear: Hearing, tympanic membrane, external ear and ear canal normal. Nose: Nose normal. Right sinus exhibits no maxillary sinus tenderness and no frontal sinus tenderness. Left sinus exhibits no maxillary sinus tenderness and no frontal sinus tenderness. Mouth/Throat: Uvula is midline, oropharynx is clear and moist and mucous membranes are normal. No oropharyngeal exudate. Eyes: Pupils are equal, round, and reactive to light. Conjunctivae are normal. Right eye exhibits no discharge. Left eye exhibits no discharge. Neck: Neck supple. Cardiovascular: Normal rate, regular rhythm and normal heart sounds. Exam reveals no gallop and no friction rub. No murmur heard. Pulmonary/Chest: Effort normal. No accessory muscle usage. No respiratory distress. He has decreased breath sounds (Good air movement throughout. Pulse ox 98%). He has wheezes. He has rhonchi (scattered rhonchi). He has no rales. Lymphadenopathy: He has no cervical adenopathy. Neurological: He is alert and oriented to person, place, and time. Skin: Skin is warm and dry. He is not diaphoretic. BP 100/70 Pulse 89 Temp 36.9 ?C (98.5 ?F) (Left Tympanic) Resp 18 Wt 132.5 kg (292 lb) SpO2 97% BMI 42.50 kg/m? .Patient presents with: Viral Syndrome PAST MEDICAL HISTORY Diagnosis Date - Obesity, unspecified 03/15/2007 - Pure hyperglyceridemia 03/15/2007 - Unspecified essential hypertension PAST SURGICAL HISTORY Procedure Laterality Date - APPENDECTOMY 1990 [facility] ALLERGIES Patient has no known allergies. MEDICATIONS hydroxychloroquine sulfate (PLAQUENIL ORAL) Take by mouth. lisinopril 40 mg tablet Take 1 tablet by mouth once daily. predniSONE (DELTASONE) 20 mg tablet Take 2 tablets by mouth once daily for 5 days. Take daily with food. benzonatate (TESSALON PERLE) 100 mg capsule Take 1 capsule by mouth three times daily as needed. albuterol HFA (PROVENTIL HFA, VENTOLIN HFA) 90 mcg/actuation inhaler Inhale 2 Puffs as instructed every 4 hours as needed. Inhalational Spacing Device spcr 1 Device one time only for 1 dose. guaiFENesin (MUCINEX) 600 mg 12 hr tablet Take 2 tablets by mouth twice daily. indomethacin 50 mg ORAL capsule Take 1 capsule by mouth three times daily with meals. As needed for gout FAMILY HISTORY Problem Relation Age of Onset - Hypertension Father - Diabetes Father - Cancer Maternal Grandfather - Cancer Father Bladder - Cancer Mother Lung Social History Substance Use Topics - Smoking status: Never Smoker - Smokeless tobacco: Never Used Comment: Was a passive smoker while in the [employer]. - Alcohol use Yes Comment: very rare ASSESSMENT/PLAN: 1. Bronchitis - ICD9: 490, ICD10: J40 (primary diagnosis) PREDNISONE 20 MG TABLET - ALBUTEROL SULFATE HFA 90 MCG/ACTUATION AEROSOL INHALER - INHALATIONAL SPACING DEVICE 2. Cough - ICD9: 786.2, ICD10: R05 - XR CHEST 2V FRONTAL/LAT No acute process. - BENZONATATE 100 MG CAPSULE - GUAIFENESIN ER 600 MG TABLET, EXTENDED RELEASE 12 HR 3. Fever, unspecified fever cause - ICD9: 780.60, ICD10: R50.9 The patient is instructed to return or seek emergency treatment if symptoms become worse or with any acute change in condition. The patient verbalizes understanding and is in agreement with plan of care. Laura Cosby CNP [facility] PROGRESS HNO ID: [id number] Author: Olesya Alvarez (Rt) Neftali Elizalde Service: (none) Author Type: Glass Robot Operator Type: Progress Notes Filed: 04/28/2018 10:16 AM Note Text: Radiology Service Progress Note PATIENT NAME: Lyn Sanchez DATE OF SERVICE: April 28, 2018 TIME: 10:10 AM PATIENT IDENTITY VERIFICATION COMPLETED USING TWO (2) METHODS: Patient confirmed name verbally and Date of . PATIENT GENDER DATA: Male PATIENT RELEVANT IMPLANT DATA REVIEWED: Not Applicable RADIOLOGY DEPARTMENT: General X-ray: Exam(s) Completed: Chest X-Ray PERIPHERAL IV DATA: Not applicable SIGNED BY: RT Ebonie April 28, 2018 10:10 AM [facility] XR CHEST 2V FRONTAL/LATon XR CHEST 2V FRONTAL/LAT * * *Final Repor t* * * DATE OF EXAM: Apr 28 2018 10:16AM WOX [id number] - XR CHEST 2V FRONTAL/LAT / PROCEDURE REASON: multiple diagnoses * * * * Physician Interpretation * * * * EXAMINATION: CHEST RADIOGRAPH (2 VIEW FRONTAL and LATERAL) CLINICAL HISTORY: Cough Fever, unspecified fever cause MQ: [id number] Comparison: None RESULT: Lines, tubes, and devices: None. Lungs and pleura: No consolidation. No lung mass. No pleural effusion. Cardiomediastinal silhouette: Normal cardiomediastinal silhouette. Other: . IMPRESSION: No acute radiographic abnormality. Video Game Programmer: AMOL Transcribe Date/Time: Apr 28 2018 10:18A Dictated by : AMALIA ROJAS MD This examination was interpreted and the report reviewed and electronically signed by: AMALIA ROJAS MD on Apr 28 2018 10:20AM EST [id number] [facility] Encounters Encounter Date Encounter Type Care Provider Facility Start: 05-08-2024 End: 05-08-2024 ambulatory Hemanth Marshall NP-C Work Phone: [facility] Work Phone: Start: 05-08-2024 End: 05-08-[address] Mandi Ambriz MD -Laboratory, [place] Work Phone: Start: 05-08-2024 End: 05-08-2024 ambulatory Mandi Ambriz Facility:[facility] Start: 12-24-2023 Encounter for genera l adult medical examination with [facility]: 11-29-2023 End: 11-29-2023 [facility] Start: 10-19-2023 End: 10-19-2023 ambulatory [facility] Facility:[facility] Start: 05-07-2023 End: 05-07-2023 ambulatory [facility] Work Phone: Start: 05-07-2023 End: 05-07-2023 [facility] Start: 01-18-2023 End: 01-18-2023 ambulatory [facility] Work Phone: Start: 01-18-2023 End: 01-18-2023 [facility] Start: 10-28-2022 End: 10-28-2022 Patient encounter procedure [facility] Work Phone: Start: 02-12-2022 End: 02-12-2022 ambulatory [facility] Work Phone: Start: 02-12-2022 End: 02-12-2022 [facility] Payers Date Payer Category Payer Self-pay [id number] 2014 Unknown [id number] Unknown [facility] [employer] [id number] Unknown [id number] Unknown [id number] Unknown [id number] Social History Date Type Detail Facility [facility]: [facility] Start: 03-29-2020 Non-smoker [facility] Start: 1970 Sex Assigned At Male [facility] Start: 04-16-2020 Tobacco smoking stat [facility] Never smoked tobacco (finding) [facility] Start: 05-19-2024 Sex Male (finding) [facility] Evaluation note Note Date & Type Note Facility Evaluation note No assessment information availa ble [facility] Work Phone: Reason for referral (narrative) Note Date & Type Note Facility Reason for referral (narrative) No reason for referral information available [facility] Work Phone: Summary Purpose Family History Relationship Condition Age at Onset Recorded Date/T helga mother Malignant neoplasm Unknown Diabetes mellitus Unknown father Malignant neoplasm Unknown Hypertension Unknown High blood cholesterol Unknown Malignant neoplasm of skin Unknown Advance Directives Advance Directive Response Recorded Date/ Time Living Will No March 29 3:28pm 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 No March 29, 2020 3:28pm Chief Complaint and Reason for Visit Chief Complaint PAIN- COPY PCP Chief Complaint INSOMNIA, SNORING, F ATIGUE Chief Complaint Admit Date PAIN- COPY PCP May 08, 2024 9:10 am Additional Source Comments (unrecognized sect ion and content) No Status Records FoundNo Status Records Found INFORMATION SOURCE (unrecogn ized section and content) DATE CREATED AUTHOR 02/16/2019 [facility] DATE CREATED AUTHOR AUTHOR'S ORGANIZ ATION 05/22/2024 [facility] Goals (unrecognized section and content) Goals may be documented in a n alternate sectionGoals may be documented in an alternate sectionGoals may be documented in an alternate sectionGoals may be documented in an alternate section Care Teams (unrecognized sec tion and content) Team Status: Active Member Role Status Dates Dr. Vikram Robles MD Family Provider Active JULIA Bautista Primary Care Provider Active Team Status: Inactive Member Role Status Dates JULIA Bautista Primary Care Provide r, Attending Provider, Referring Provider Active Team Status: Inactive Member Role Status Dates Hemanth Rolando , WREATH MACHINE TENDER-C Primary Care Provider Active Dr. Mandi Ambriz MD Attending Provider, Referring Provider Active Team Status: Inactive Member Role Status Dates Hemanth JULIA Marshall Primary Care Provider Active Start: May 08, 2024 End: May 08, 2024 Dr. Mandi Ambriz MD Attending Provider Active Start: May 08, 2024 End: May 08, 2024 Dr. Mandi Ambriz MD Referring Provider Active Start: May 08, 2024 End: May 08, 2024 FOR RECORDS PERTAINING TO PATIENTS WHO ARE OR HAVE BEEN ENROLLED IN A CHEMICAL DEPENDENCY/SUBSTANCEABUSE PROGRAM, SOME INFORMATION MAY BE OMITTED. This clinical summary was aggregated from multiple sources. Caution should be exercised in using it in the provision of clinical care. This summary normalizes information from multiple sources, and as a consequence, information in this document may materially change the coding, format and clinical context of patient data. In addition, data may be omitted in some cases. CLINICAL DECISIONS SHOULD BE BASED ON THE PRIMARY CLINICAL RECORDS. [facility] [employer] provides no warranty or guarantee of the accuracy or completeness of information in this document.
--- OUTSIDE RECORDS SUMMARY | 2024-10-13 07:45 | XMS RPT_ITS | CCD ---
Author Organization [facility] Care Team Providers Care Home Lighting Adviser Name Role Phone Hemanth Marshall Primary Care Unavailable Mandi Ambriz Attending Unavailable Mandi Ambriz Referring Unavailable Hemanth Marshall Primary Care Unavailable Hemanth Marshall Attending Unavailable Hemanth Marshall Referring Unavailable Mandi Ambriz Attending Unavailable Mandi Ambriz Referring Unavailable Rolando, Hemanth Primary Care Unavailable Rolando FREEZER WORKER-C, Hemanth Primary Care Provider [phone] Pb FELIZ, Dr. Raymond Attending Provider Pb [...] Range Facility Absolute neutrophil countOrd ered By: Madni Ambriz on 05-08-2024 Neutrophils (Bld) [#/Vol] 4.0 10*3/uL 2.0-7.7 [facility] BUN/creatinine ratioOrdered By: Mandi Ambriz on 05-08-2024 Urea nitrogen/Creatinine [Mass ratio] 22.5 mg/mg High 10-20 [facility] Basophil percentageOrdered B y: Mandi Ambriz on 05-08-2024 Basophils/100 WBC (Bld) 0.6 % 0-1 [facility] Bilirubin, totalOrdered By: Mandi Ambriz on 05-08-2024 Bilirubin [Mass/Vol] 0.34 mg/dL 0.00-1.30 [facility] CBC W/Diff, Automatedon Absolute Lymph 1.72 X10 3/uL Normal 0.83-4.51 [facility] Comment on above: Performed By: #### L 500.4050, L100.0100 #### [facility] [address] [facility] [address] Absolute Neut 4.0 X10 3/uL Normal 2.0-7.7 [facility] Comment on above: Performed By: #### L 500.4050, L100.0100 #### [facility] [address] [facility] [address] Basophils/100 WBC (Bld) 0.6 % Normal 0-1 [facility] Comment on above: Performed By: #### L 500.4050, L100.0100 #### [facility] [address] [place], [address] Eosinophils/100 WBC (Bld) 3.2 % Normal 0-5 [facility] Comment on above: Performed By: #### L 500.4050, L100.0100 #### [facility] [address] [place], [address] Erythrocyte distribution width (RBC) [Ratio] 12.6 % Normal 11.6-14.6 [facility] Comment on above: Performed By: #### L 500.4050, L100.0100 #### [facility] [address] [place], [address] Hematocrit (Bld) [Volume fraction] 40.9 % Normal 40-54 [facility] Comment on above: Performed By: #### L 500.4050, L100.0100 #### [facility] [address] [place], [address] Hemoglobin (Bld) [Mass/Vol] 13.5 g/dL Normal 13.0-16.5 [facility] Comment on above: Performed By: #### L 500.4050, L100.0100 #### [facility] [address] [place], [address] IG% 0.500 Normal 0.0-0.9 [facility] Comment on above: Result Comment: IG% - Immature Granulocytes (promyelocytes, myelocytes and metamyelocytes) > 1% indicates that a LEFT SHIFT is Present. Performed By: #### L 500.4050, L100.0100 #### [facility] [address] [place], [address] Lymphocytes/100 WBC (Bld) 26.3 % Normal 19-41 [facility] Comment on above: Performed By: #### L 500.4050, L100.0100 #### [facility] [address] [place], [address] MCH (RBC) [Entitic mass] 29.8 pg Normal 27.0-32.0 [facility] Comment on above: Performed By: #### L 500.4050, L100.0100 #### [facility] [address] [place], [address] MCHC (RBC) [Mass/Vol] 33.0 g/dL Normal 32-36 [facility] Comment on above: Performed By: #### L 500.4050, L100.0100 #### [facility] [address] [place], [address] MCV (RBC) [Entitic vol] 90.3 fL Normal 80-94 [place] Comment on above: Performed By: #### L 500.4050, L100.0100 #### [facility] [address] [place], [address] Monocytes/100 WBC (Bld) 8.3 % Normal 0-10 [facility] Comment on above: Performed By: #### L 500.4050, L100.0100 #### [facility] [address] [place], [address] Neutrophils/100 WBC (Bld) 61.1 % Normal 47-70 [facility] Comment on above: Performed By: #### L 500.4050, L100.0100 #### [facility] [address] [place], [address] Nucleated RBC (Bld) [#/Vol] 0 10*3/uL Normal 0-5 [facility] Comment on above: Performed By: #### L 500.4050, L100.0100 #### [facility] [address] [place], [address] Platelet mean volume (Bld) [Entitic vol] 10.8 fL Normal 6.2-12.0 [facility] Comment on above: Performed By: #### L 500.4050, L100.0100 #### [facility] [address] [place], [address] Platelets (Bld) [#/Vol] 237 10*3/uL Normal 150-450 [facility] Comment on above: Performed By: #### L 500.4050, L100.0100 #### [facility] [address] [place], [address] RBC (Bld) [#/Vol] 4.53 10*6/uL Low 4.6-6.2 [facility] Comment on above: Performed By: #### L 500.4050, L100.0100 #### [facility] [address] [place], [address] RDW SD 41.5 fl Normal 35.1-43.9 [facility] Comment on above: Performed By: #### L 500.4050, L100.0100 #### [facility] [address] [place], [address] WBC (Bld) [#/Vol] 6.5 10*3/uL Normal 4.4-11.0 [facility] Comment on above: Performed By: #### L 500.4050, L100.0100 #### [facility] [address] [place], [address] Carbon dioxide measurementOr dered By: Mandi Ambriz on 05-08-2024 CO2 [Moles/Vol] 19.9 mmol/L Low 22.0-29.0 [facility] Chloride measurementOrdered By: Mandi Ambriz on 05-08-2024 Chloride [Moles/Vol] 105 mmol/L 96-108 [facility] Comprehensive Metabolic Prof ilon 05-08-2024 Albumin [Mass/Vol] 4.3 g/dL Normal 3.5-5.0 [facility] Comment on above: Performed By: #### L 500.4050, L100.0100 #### [facility] [address] [place], [address] Albumin/Globulin [Mass ratio] 1.4 {ratio} Normal 0.9-2.4 [facility] Comment on above: Performed By: #### L 500.4050, L100.0100 #### [facility] [address] [place], [address] ALK PHOS 78 U/L Normal 40-129 [facility] Comment on above: Performed By: #### L 500.4050, L100.0100 #### [facility] [address] [place], [address] ALT [Catalytic activity/Vol] 29 U/L Normal <=46 [facility] Comment on above: Performed By: #### L 500.4050, L100.0100 #### [facility] [address] [place], [address] Anion gap [Moles/Vol] 13 mmol/L Normal 5-15 [facility] Comment on above: Performed By: #### L 500.4050, L100.0100 #### [facility] [address] [place], [address] AST [Catalytic activity/Vol] 32 U/L Normal <=37 [facility] Comment on above: Performed By: #### L 500.4050, L100.0100 #### [facility] [address] [place], [address] Bilirubin [Mass/Vol] 0.34 mg/dL Normal 0.00-1.30 [facility] Comment on above: Performed By: #### L 500.4050, L100.0100 #### [facility] [address] [place], [address] BUN/CRE 22.5 RATIO High 10-20 [facility] Comment on above: Performed By: #### L 500.4050, L100.0100 #### [facility] [address] [place], [address] Calcium [Mass/Vol] 9.6 mg/dL Normal 7.6-11.0 [facility] Comment on above: Performed By: #### L 500.4050, L100.0100 #### [facility] [address] [place], [address] Chloride [Moles/Vol] 105 mmol/L Normal 96-108 [facility] Comment on above: Performed By: #### L 500.4050, L100.0100 #### [facility] [address] [place], [address] CO2 [Moles/Vol] 19.9 mmol/L Low 22.0-29.0 [facility] Comment on above: Performed By: #### L 500.4050, L100.0100 #### [facility] [address] [place], [address] Creatinine [Mass/Vol] 1.05 mg/dL Normal 0.70-1.20 [facility] Comment on above: Performed By: #### L 500.4050, L100.0100 #### [facility] [address] [place], [address] GFR/1.73 sq M.predicted among non-blacks MDRD (S/P/Bld) [Vol rate/Area] 83 mL/min/{1.73_m2} Normal >60 [facility] Comment on above: Result Comment: mL/m in/1.73m2 CKD-EPI Creatinine Equation (2020) Performed By: #### L 500.4050, L100.0100 #### [facility] [address] [place], [address] Globulin (S) [Mass/Vol] 3.1 g/dL Normal 2.2-4.2 [place] Comment on above: Performed By: #### L 500.4050, L100.0100 #### [facility] [address] [place], [address] Glucose [Mass/Vol] 100 mg/dL High 70-99 [facility] Comment on above: Performed By: #### L 500.4050, L100.0100 #### [facility] [address] [place], [address] Potassium [Moles/Vol] 4.7 mmol/L Normal 3.3-5.1 [facility] Comment on above: Performed By: #### L 500.4050, L100.0100 #### [facility] [address] [place], [address] Sodium [Moles/Vol] 138 mmol/L Normal 133-145 [facility] Comment on above: Performed By: #### L 500.4050, L100.0100 #### [facility] [address] [place], [address] T PROT 7.5 g/dL Normal 5.9-8.4 [facility] Comment on above: Performed By: #### L 500.4050, L100.0100 #### [facility] [address] [place], [address] Urea nitrogen [Mass/Vol] 24 mg/dL High 4-19 [facility] Comment on above: Performed By: #### L 500.4050, L100.0100 #### [facility] [address] [place], [address] Eosinophil percentageOrdered By: Mandi Ambriz on 05-08-2024 Eosinophils/100 WBC (Bld) 3.2 % 0-5 [facility] Erythrocyte distribution wid th ratioOrdered By: Mandi Ambriz on 05-08-2024 Erythrocyte distribution width (RBC) [Ratio] 12.6 % 11.6-14.6 [facility] Erythrocyte distribution wid th standard deviationOrdered By: Mandi Ambriz on 05-08-2024 Erythrocyte distribution width (RBC) [Entitic vol] 41.5 fL 35.1-43.9 [facility] GFR/1.73 sq M.predicted luis angel g non-blacks MDRD (S/P/Bld) [Vol rate/Area]Ordered By: Mandi Ambriz on 05-08-2024 Estimated GFR (MDRD) Non-Af Amer 83 >60 [facility] Comment on above: mL/min/1.73m2 CKD-EP I Creatinine Equation (2020) Hematocrit Auto (Bld) [Volum e fraction]Ordered By: Mandi Ambriz on 05-08-2024 Hematocrit (Bld) [Volume fraction] 40.9 % 40-54 [facility] Hemoglobin measurementOrdere d By: Mandi Ambriz on 05-08-2024 Hemoglobin (Bld) [Mass/Vol] 13.5 g/dL 13.0-16.5 [facility] Immature granulocytes/100 WB C Auto (Bld)Ordered By: Mandi Ambriz on 05-08-2024 Immature granulocytes/100 WBC (Bld) 0.500 % 0.0-0.9 [facility] Comment on above: IG% - Immature Granu locytes (promyelocytes, myelocytes and metamyelocytes) > 1% indicates that a LEFT SHIFT is Present. Laboratory - Chemistry and C hemistry - challengeOrdered By: Mandi Ambriz on 05-08-2024 AST [Catalytic activity/Vol] 32 U/L <38 [facility] Lymphocytes Auto (Unsp spec) [#/Vol]Ordered By: Mandi Ambriz on 05-08-2024 Lymphocytes (Bld) [#/Vol] 1.72 10*3/uL 0.83-4.51 [facility] Lymphocytes/100 WBC Auto (Un sp spec)Ordered By: Mandi Ambriz on 05-08-2024 Lymphocytes/100 WBC (Bld) 26.3 % 19-41 [facility] MCV (mean corpuscular volume ) determinationOrdered By: Mandi Ambriz on 05-08-2024 MCV (RBC) [Entitic vol] 90.3 fL 80-94 [facility] Mean corpuscular hemoglobin (MCH) determinationOrdered By: Mandi Ambriz on 05-08-2024 MCH (RBC) [Entitic mass] 29.8 pg 27.0-32.0 [facility] Mean corpuscular hemoglobin concentration (MCHC) determinationOrdered By: Mandi Ambriz on 05-08-2024 MCHC (RBC) [Mass/Vol] 33.0 g/dL 32-36 [facility] Mean platelet volume determi nationOrdered By: Mandi Ambriz on 05-08-2024 Platelet mean volume (Bld) [Entitic vol] 10.8 fL 6.2-12.0 [facility] Monocyte percentageOrdered B y: Mandi Ambriz on 05-08-2024 Monocytes/100 WBC (Bld) 8.3 % 0-10 [facility] Neutrophil percentageOrdered By: Mandi Ambriz on 05-08-2024 Neutrophils/100 WBC (Bld) 61.1 % 47-70 [facility] Nucleated red blood cell per centageOrdered By: Mandi Ambriz on 05-08-2024 Nucleated RBC/100 WBC (Bld) [Ratio] 0 % 0-5 [facility] Platelet countOrdered By: Axel Ambriz on 05-08-2024 Platelets (Bld) [#/Vol] 237 10*3/uL 150-450 [facility] RBC Auto (Bld) [#/Vol]Ordere d By: Mandi Ambriz on 05-08-2024 RBC (Bld) [#/Vol] 4.53 10*6/uL Low 4.6-6.2 [facility] Serum creatinine measurement (mass/volume)Ordered By: Mandi Ambriz on 05-08-2024 Creatinine [Mass/Vol] 1.05 mg/dL 0.70-1.20 [facility] Serum globulin measurementOr dered By: Mandi Ambriz on 05-08-2024 Globulin (S) [Mass/Vol] 3.1 g/dL 2.2-4.2 [place] Serum glucose measurement (m ass/volume)Ordered By: Mandi Ambriz on 05-08-2024 Glucose [Mass/Vol] 100 mg/dL High 70-99 [facility] Serum or plasma alanine adler otransferase (ALT) measurementOrdered By: Mandi Ambriz on 05-08-2024 ALT [Catalytic activity/Vol] 29 U/L <47 [facility] Serum or plasma albumin ruben urement (mass/volume)Ordered By: Mandi Ambriz on 05-08-2024 Albumin [Mass/Vol] 4.3 g/dL 3.5-5.0 [facility] Serum or plasma albumin/glob ulin mass ratioOrdered By: Mandi Ambriz on 05-08-2024 Albumin/Globulin [Mass ratio] 1.4 {ratio} 0.9-2.4 [facility] Serum or plasma alkaline mityz sphatase measurementOrdered By: Mandi Ambriz on 05-08-2024 ALP [Catalytic activity/Vol] 78 U/L 40-129 [facility] Serum or plasma anion gap de termination (moles/volume)Ordered By: Mandi Ambriz on 05-08-2024 Anion gap [Moles/Vol] 13 mmol/L 5-15 [facility] Serum or plasma calcium ruben urement (mass/volume)Ordered By: Mandi Ambriz on 05-08-2024 Calcium [Mass/Vol] 9.6 mg/dL 7.6-11.0 [facility] Serum or plasma potassium me asurementOrdered By: Mandi Ambriz on 05-08-2024 Potassium [Moles/Vol] 4.7 mmol/L 3.3-5.1 [facility] Serum or plasma sodium measu rement (moles/volume)Ordered By: Mandi Ambriz on 05-08-2024 Sodium [Moles/Vol] 138 mmol/L 133-145 [facility] Serum or plasma urea nitroge n measurement (mass/volume)Ordered By: Mandi Ambriz on 05-08-2024 Urea nitrogen [Mass/Vol] 24 mg/dL High 4-19 [facility] Total proteinOrdered By: Natasha Ambriz on 05-08-2024 Protein [Mass/Vol] 7.5 g/dL 5.9-8.4 [facility] White blood cell (WBC) count Ordered By: Mandi Ambriz on 05-08-2024 WBC (Bld) [#/Vol] 6.5 10*3/uL 4.4-11.0 [facility] CBC W/Diff, Automatedon 09-2 -2023 Absolute Lymph 1.99 X10 3/uL Normal 0.83-4.51 [facility] Comment on above: Performed By: #### L 100.0100, L500.4100, L506.1000, L503.0105, L500.4050, L506.0400, L509.3000, L503.6150, L501.9910, L503.6550, L501.9520 #### [facility] [address] [place], [address] Absolute Neut 4.0 X10 3/uL Normal 2.0-7.7 [facility] Comment on above: Performed By: #### L 100.0100, L500.4100, L506.1000, L503.0105, L500.4050, L506.0400, L509.3000, L503.6150, L501.9910, L503.6550, L501.9520 #### [facility] [address] [place], [place], [phone] (814) Basophils/100 WBC (Bld) 1.0 % Normal 0-1 [facility] Comment on above: Performed By: #### L 100.0100, L500.4100, L506.1000, L503.0105, L500.4050, L506.0400, L509.3000, L503.6150, L501.9910, L503.6550, L501.9520 #### [facility] [address] [place], [place], [phone] ([phone] Eosinophils/100 WBC (Bld) 3.0 % Normal 0-5 [facility] Comment on above: Performed By: #### L 100.0100, L500.4100, L506.1000, L503.0105, L500.4050, L506.0400, L509.3000, L503.6150, L501.9910, L503.6550, L501.9520 #### [facility] [address] [place] [place], [address] (613) Erythrocyte distribution width (RBC) [Ratio] 12.8 % Normal 11.6-14.6 [facility] Comment on above: Performed By: #### L 100.0100, L500.4100, L506.1000, L503.0105, L500.4050, L506.0400, L509.3000, L503.6150, L501.9910, L503.6550, L501.9520 #### [facility] [address] [place], [address] (550) Hematocrit (Bld) [Volume fraction] 40.6 % Normal 40-54 [facility] Comment on above: Performed By: #### L 100.0100, L500.4100, L506.1000, L503.0105, L500.4050, L506.0400, L509.3000, L503.6150, L501.9910, L503.6550, L501.9520 #### [facility] [address] [place], [address] (345) Hemoglobin (Bld) [Mass/Vol] 13.3 g/dL Normal 13.0-16.5 [facility] Comment on above: Performed By: #### L 100.0100, L500.4100, L506.1000, L503.0105, L500.4050, L506.0400, L509.3000, L503.6150, L501.9910, L503.6550, L501.9520 #### [facility] [address] [place], [address] (696) IG% 0.900 Normal 0.0-0.9 [facility] Comment on above: Result Comment: IG% - Immature Granulocytes (promyelocytes, myelocytes and metamyelocytes) > 1% indicates that a LEFT SHIFT is Present. Performed By: #### L 100.0100, L500.4100, L506.1000, L503.0105, L500.4050, L506.0400, L509.3000, L503.6150, L501.9910, L503.6550, L501.9520 #### [facility] [address] [place], [address] Lymphocytes/100 WBC (Bld) 29.4 % Normal 19-41 [facility] Comment on above: Performed By: #### L 100.0100, L500.4100, L506.1000, L503.0105, L500.4050, L506.0400, L509.3000, L503.6150, L501.9910, L503.6550, L501.9520 #### [facility] [address] [facility] [place], [address] MCH (RBC) [Entitic mass] 30.0 pg Normal 27.0-32.0 [facility] Comment on above: Performed By: #### L 100.0100, L500.4100, L506.1000, L503.0105, L500.4050, L506.0400, L509.3000, L503.6150, L501.9910, L503.6550, L501.9520 #### [facility] [address] [place], [address] MCHC (RBC) [Mass/Vol] 32.8 g/dL Normal 32-36 [facility] Comment on above: Performed By: #### L 100.0100, L500.4100, L506.1000, L503.0105, L500.4050, L506.0400, L509.3000, L503.6150, L501.9910, L503.6550, L501.9520 #### [facility] [address] [place], [address] MCV (RBC) [Entitic vol] 91.4 fL Normal 80-94 [facility] Comment on above: Performed By: #### L 100.0100, L500.4100, L506.1000, L503.0105, L500.4050, L506.0400, L509.3000, L503.6150, L501.9910, L503.6550, L501.9520 #### [facility] [address] [facility] [place], [address] Monocytes/100 WBC (Bld) 7.2 % Normal 0-10 [facility] Comment on above: Performed By: #### L 100.0100, L500.4100, L506.1000, L503.0105, L500.4050, L506.0400, L509.3000, L503.6150, L501.9910, L503.6550, L501.9520 #### [facility] [address] [place], [place], [phone] ([phone] Neutrophils/100 WBC (Bld) 58.5 % Normal 47-70 [facility] Comment on above: Performed By: #### L 100.0100, L500.4100, L506.1000, L503.0105, L500.4050, L506.0400, L509.3000, L503.6150, L501.9910, L503.6550, L501.9520 #### [facility] [address] [place], [place], [phone] (273) Nucleated RBC (Bld) [#/Vol] 0 10*3/uL Normal 0-5 [facility] Comment on above: Performed By: #### L 100.0100, L500.4100, L506.1000, L503.0105, L500.4050, L506.0400, L509.3000, L503.6150, L501.9910, L503.6550, L501.9520 #### [facility] [address] [place], [address] Platelet mean volume (Bld) [Entitic vol] 10.1 fL Normal 6.2-12.0 [facility] Comment on above: Performed By: #### L 100.0100, L500.4100, L506.1000, L503.0105, L500.4050, L506.0400, L509.3000, L503.6150, L501.9910, L503.6550, L501.9520 #### [facility] [address] [place], [place], [phone] (901) Platelets (Bld) [#/Vol] 221 10*3/uL Normal 150-450 [facility] Comment on above: Performed By: #### L 100.0100, L500.4100, L506.1000, L503.0105, L500.4050, L506.0400, L509.3000, L503.6150, L501.9910, L503.6550, L501.9520 #### [facility] [address] [place], [place], [phone] (070) RBC (Bld) [#/Vol] 4.44 10*6/uL Low 4.6-6.2 [facility] Comment on above: Performed By: #### L 100.0100, L500.4100, L506.1000, L503.0105, L500.4050, L506.0400, L509.3000, L503.6150, L501.9910, L503.6550, L501.9520 #### [facility] [address] [place], [place], [phone] (465) RDW SD 42.6 fl Normal 35.1-43.9 [facility] Comment on above: Performed By: #### L 100.0100, L500.4100, L506.1000, L503.0105, L500.4050, L506.0400, L509.3000, L503.6150, L501.9910, L503.6550, L501.9520 #### [facility] [address] [place], [place], [phone] (892) WBC (Bld) [#/Vol] 6.8 10*3/uL Normal 4.4-11.0 [facility] Comment on above: Performed By: #### L 100.0100, L500.4100, L506.1000, L503.0105, L500.4050, L506.0400, L509.3000, L503.6150, L501.9910, L503.6550, L501.9520 #### [facility] [address] [place], [address] Comprehensive Metabolic Prof [facility] 11-29-2023 Albumin [Mass/Vol] 3.6 g/dL Normal 3.2-5.0 [facility] Comment on above: Performed By: #### L 100.0100, L500.4100, L506.1000, L503.0105, L500.4050, L506.0400, L509.3000, L503.6150, L501.9910, L503.6550, L501.9520 #### [facility] [address] [place], [place], [id number] Albumin/Globulin [Mass ratio] 1.0 {ratio} Normal 0.9-2.4 [facility] Comment on above: Performed By: #### L 100.0100, L500.4100, L506.1000, L503.0105, L500.4050, L506.0400, L509.3000, L503.6150, L501.9910, L503.6550, L501.9520 #### [facility] [address] [place], [place], [id number] ALK P 77 U/L Normal 45-117 [facility] Comment on above: Performed By: #### L 100.0100, L500.4100, L506.1000, L503.0105, L500.4050, L506.0400, L509.3000, L503.6150, L501.9910, L503.6550, L501.9520 #### [facility] [address] [place], [address] ALT [Catalytic activity/Vol] 33 U/L Normal 16-61 [facility] Comment on above: Performed By: #### L 100.0100, L500.4100, L506.1000, L503.0105, L500.4050, L506.0400, L509.3000, L503.6150, L501.9910, L503.6550, L501.9520 #### [facility] [address] [place], [address] AST [Catalytic activity/Vol] 24 U/L Normal 15-37 [facility] Comment on above: Performed By: #### L 100.0100, L500.4100, L506.1000, L503.0105, L500.4050, L506.0400, L509.3000, L503.6150, L501.9910, L503.6550, L501.9520 #### [facility] [address] [place], [place], [id number] Bilirubin [Mass/Vol] 0.30 mg/dL Normal 0.20-1.00 [facility] Comment on above: Result Comment: For patients on eltrombopag therapy, use of Dimension [place] TBIL is not recommended. Performed By: #### L 100.0100, L500.4100, L506.1000, L503.0105, L500.4050, L506.0400, L509.3000, L503.6150, L501.9910, L503.6550, L501.9520 #### [facility] [address] [place], [place], [phone] (955) BUN/CRE 14.4 RATIO Normal 10-20 [facility] Comment on above: Performed By: #### L 100.0100, L500.4100, L506.1000, L503.0105, L500.4050, L506.0400, L509.3000, L503.6150, L501.9910, L503.6550, L501.9520 #### [facility] [address] [place], [address] CA,Total 9.5 mg/dL Normal 8.5-10.1 [facility] Comment on above: Performed By: #### L 100.0100, L500.4100, L506.1000, L503.0105, L500.4050, L506.0400, L509.3000, L503.6150, L501.9910, L503.6550, L501.9520 #### [facility] [address] [place] [place], [address] Chloride [Moles/Vol] 108 mmol/L High 98-107 [facility] Comment on above: Performed By: #### L 100.0100, L500.4100, L506.1000, L503.0105, L500.4050, L506.0400, L509.3000, L503.6150, L501.9910, L503.6550, L501.9520 #### [facility] [address] [place], [address] CO2 [Moles/Vol] 25.0 mmol/L Normal 21.0-32.0 [facility] Comment on above: Performed By: #### L 100.0100, L500.4100, L506.1000, L503.0105, L500.4050, L506.0400, L509.3000, L503.6150, L501.9910, L503.6550, L501.9520 #### [facility] [address] [place], [place], [phone] Creatinine [Mass/Vol] 1.04 mg/dL Normal 0.70-1.30 [facility] Comment on above: Result Comment: The validity of the calculated GFR GFRAA in patients over 70 years has not been determined. Clinical correlation is essential. Performed By: #### L 100.0100, L500.4100, L506.1000, L503.0105, L500.4050, L506.0400, L509.3000, L503.6150, L501.9910, L503.6550, L501.9520 #### [facility] [address] [place], [address] EST GFR - AA 95 mL/min Normal >60 [facility] Comment on above: Result Comment: Afri can [place] GFR Calc Performed By: #### L 100.0100, L500.4100, L506.1000, L503.0105, L500.4050, L506.0400, L509.3000, L503.6150, L501.9910, L503.6550, L501.9520 #### [facility] [address] [place], [place], [phone] GAP 7 Normal 5-15 [facility] Comment on above: Performed By: #### L 100.0100, L500.4100, L506.1000, L503.0105, L500.4050, L506.0400, L509.3000, L503.6150, L501.9910, L503.6550, L501.9520 #### [facility] [address] [place], [place], [phone]) GFR/1.73 sq M.predicted among non-blacks MDRD (S/P/Bld) [Vol rate/Area] 79 mL/min/{1.73_m2} Normal >60 [facility] Comment on above: Result Comment: Non- GFR Calc Performed By: #### L 100.0100, L500.4100, L506.1000, L503.0105, L500.4050, L506.0400, L509.3000, L503.6150, L501.9910, L503.6550, L501.9520 #### [facility] [address] [place], [place], [phone]) Globulin (S) [Mass/Vol] 3.7 g/dL Normal 2.2-4.2 [facility] Comment on above: Performed By: #### L 100.0100, L500.4100, L506.1000, L503.0105, L500.4050, L506.0400, L509.3000, L503.6150, L501.9910, L503.6550, L501.9520 #### [facility] [address], [address] Glucose [Mass/Vol] 96 mg/dL Normal 74-106 [facility] Comment on above: Performed By: #### L 100.0100, L500.4100, L506.1000, L503.0105, L500.4050, L506.0400, L509.3000, L503.6150, L501.9910, L503.6550, L501.9520 #### [facility] [address] [place], [place], [phone] Potassium [Moles/Vol] 4.8 mmol/L Normal 3.5-5.1 [facility] Comment on above: Performed By: #### L 100.0100, L500.4100, L506.1000, L503.0105, L500.4050, L506.0400, L509.3000, L503.6150, L501.9910, L503.6550, L501.9520 #### [facility] [address] [place], [place], [phone] (547) Sodium [Moles/Vol] 140 mmol/L Normal 136-145 [facility] Comment on above: Performed By: #### L 100.0100, L500.4100, L506.1000, L503.0105, L500.4050, L506.0400, L509.3000, L503.6150, L501.9910, L503.6550, L501.9520 #### [facility] [address] [place], [address] T PROT 7.3 g/dL Normal 6.4-8.2 [facility] Comment on above: Performed By: #### L 100.0100, L500.4100, L506.1000, L503.0105, L500.4050, L506.0400, L509.3000, L503.6150, L501.9910, L503.6550, L501.9520 #### [facility] [address] [place], [address] Urea nitrogen [Mass/Vol] 15 mg/dL Normal 7-18 [facility] Comment on above: Performed By: #### L 100.0100, L500.4100, L506.1000, L503.0105, L500.4050, L506.0400, L509.3000, L503.6150, L501.9910, L503.6550, L501.9520 #### [facility] [address] [place], [address] Ferritinon 11-29-2023 Ferritin [Mass/Vol] 222 ng/mL Normal 26-388 [facility] Comment on above: Performed By: #### L 500.4050, L100.0100 #### [facility] [address] [place], [address] Ironon 11-29-2023 Iron [Mass/Vol] 59 ug/dL Low 65-175 [facility] Comment on above: Performed By: #### L 500.4050, L100.0100 #### [facility] [address] [place], [address] Lipid Profileon 11-29-2023 Cholesterol [Mass/Vol] 188 mg/dL Normal 200 [facility] Comment on above: Result Comment: <200 mg/dL Desirable 200-240 mg/dL Borderline >240 mg/dL High Risk Performed By: #### L 100.0100, L500.4100, L506.1000, L503.0105, L500.4050, L506.0400, L509.3000, L503.6150, L501.9910, L503.6550, L501.9520 #### [facility] [address] [place], [address] Cholesterol in HDL [Mass/Vol] 50 mg/dL Normal [facility] Comment on above: Result Comment: The drugs N-Acetylcysteine and Metamizole may falsely depress this assay. Reference Range HDL <40 mg/dL Low HDL Cholesterol HDL >or= 60 mg/dL High HDL Cholesterol Performed By: #### L 100.0100, L500.4100, L506.1000, L503.0105, L500.4050, L506.0400, L509.3000, L503.6150, L501.9910, L503.6550, L501.9520 #### [facility] [address] [place], [address] Cholesterol in LDL [Mass/Vol] 101 mg/dL Normal 0-130 [facility] Comment on above: Performed By: #### L 100.0100, L500.4100, L506.1000, L503.0105, L500.4050, L506.0400, L509.3000, L503.6150, L501.9910, L503.6550, L501.9520 #### [facility] [address] [place], [address] Cholesterol in VLDL [Mass/Vol] 37 mg/dL Normal 5-40 [facility] Comment on above: Performed By: #### L 100.0100, L500.4100, L506.1000, L503.0105, L500.4050, L506.0400, L509.3000, L503.6150, L501.9910, L503.6550, L501.9520 #### [facility] [address] [place], [address] Triglyceride [Mass/Vol] 186 mg/dL Normal [facility] Comment on above: Result Comment: The drugs N-Acetylcysteine and Metamizole may falsely depress this assay. Serum Triglycerides Reference Interval Normal <150 mg/dL Borderline high 150 - 199 mg/dL High 200 - 499 mg/dL Very High > or = 500 mg/dL Performed By: #### L 100.0100, L500.4100, L506.1000, L503.0105, L500.4050, L506.0400, L509.3000, L503.6150, L501.9910, L503.6550, L501.9520 #### [facility] [address] [place], [address] PSA,Total - Annual Screenon 11-29-2023 PSA,TOT SCREEN 0.39 ng/mL Normal 0.00-4.00 [facility] Comment on above: Result Comment: This test was performed using the TPSA assay method for the [employer] chemistry system. Values obtained with different assay methods cannot be used interchangably. When changing PSA assays in the course of monitoring a patient, additional sequential testing should be carried out to confirm baseline values. Performed By: #### L 100.0100, L500.4100, L506.1000, L503.0105, L500.4050, L506.0400, L509.3000, L503.6150, L501.9910, L503.6550, L501.9520 #### [facility] [address] [place], [place], [id number] T4 Free Directon 11-29-2023 T4 FREE DIRECT 0.93 ng/dL Normal 0.76-1.46 [facility] Comment on above: Performed By: #### L 500.4050, L100.0100 #### [facility] [address] [place], [address] Testosterone, Serum Totalon 11-29-2023 Testosterone [Mass/Vol] 79.50 ng/dL Normal [facility] Comment on above: Result Comment: CENT [...] L506.0400, L509.3000, L503.6150, L501.9910, L503.6550, L501.9520 #### [facility] [address] [place], [place], [id number] Thyroid Stim Hormone (TSH)on 11-29-2023 TSH 1.220 uIU/mL Normal 0.358-3.740 [facility] Comment on above: Performed By: #### L 100.0100, L500.4100, L506.1000, L503.0105, L500.4050, L506.0400, L509.3000, L503.6150, L501.9910, L503.6550, L501.9520 #### [facility] [address] [place], [address] Vitamin B12on 11-29-2023 Cobalamin (Vitamin B12) [Mass/Vol] 488 pg/mL Normal 211-911 [facility] Comment on above: Performed By: #### L 100.0100, L500.4100, L506.1000, L503.0105, L500.4050, L506.0400, L509.3000, L503.6150, L501.9910, L503.6550, L501.9520 #### [facility] [address] [place], [place], [id number] Vitamin D,25 Hydroxyon 11-28 Vitamin D 25-OH 21.4 ng/mL Normal [facility] Comment on above: Result Comment: Vangie min D 25(OH) Status Range Deficiency <20 ng/mL (50nmol/L) Insufficiency 20 - 30 ng/mL (50 - 75 nmol/L) Sufficiency 30 - 100 ng/mL (75 - 250 nmol/L) Toxicity >100 ng/mL (>250 nmol/L) Performed By: #### L 100.0100, L500.4100, L506.1000, L503.0105, L500.4050, L506.0400, L509.3000, L503.6150, L501.9910, L503.6550, L501.9520 #### [facility] [address] [place], [address] CBC W/Diff, Automatedon 10-06-2023 Absolute Lymph 2.14 X10 3/uL Normal 0.83-4.51 [facility] Comment on above: Performed By: #### L 500.4050, L100.0100 #### [facility] [address] [place], [address] Absolute Neut 4.1 X10 3/uL Normal 2.0-7.7 [facility] Comment on above: Performed By: #### L 500.4050, L100.0100 #### [facility] [address] [place], [address] Basophils/100 WBC (Bld) 1.1 % High 0-1 [facility] Comment on above: Performed By: #### L 500.4050, L100.0100 #### [facility] [address] [place], [address] Eosinophils/100 WBC (Bld) 2.7 % Normal 0-5 [facility] Comment on above: Performed By: #### L 500.4050, L100.0100 #### [facility] [address] [place], [address] Erythrocyte distribution width (RBC) [Ratio] 12.9 % Normal 11.6-14.6 [facility] Comment on above: Performed By: #### L 500.4050, L100.0100 #### [facility] [address] [place], [address] Hematocrit (Bld) [Volume fraction] 42.3 % Normal 40-54 [facility] Comment on above: Performed By: #### L 500.4050, L100.0100 #### [facility] [address] [place], [address] Hemoglobin (Bld) [Mass/Vol] 13.9 g/dL Normal 13.0-16.5 [facility] Comment on above: Performed By: #### L 500.4050, L100.0100 #### [facility] [address] [place], [address] IG% 0.400 Normal 0.0-0.9 [facility] Comment on above: Result Comment: IG% - Immature Granulocytes (promyelocytes, myelocytes and metamyelocytes) > 1% indicates that a LEFT SHIFT is Present. Performed By: #### L 500.4050, L100.0100 #### [facility] [address] [place], [address] Lymphocytes/100 WBC (Bld) 30.4 % Normal 19-41 [facility] Comment on above: Performed By: #### L 500.4050, L100.0100 #### [facility] [address] [place], [address] MCH (RBC) [Entitic mass] 29.0 pg Normal 27.0-32.0 [facility] Comment on above: Performed By: #### L 500.4050, L100.0100 #### [facility] [address] [place], [address] MCHC (RBC) [Mass/Vol] 32.9 g/dL Normal 32-36 [facility] Comment on above: Performed By: #### L 500.4050, L100.0100 #### [facility] [address] [place], [address] MCV (RBC) [Entitic vol] 88.3 fL Normal 80-94 [facility] Comment on above: Performed By: #### L 500.4050, L100.0100 #### [facility] [address] [place], [address] Monocytes/100 WBC (Bld) 7.5 % Normal 0-10 [facility] Comment on above: Performed By: #### L 500.4050, L100.0100 #### [facility] [address] [place], [address] Neutrophils/100 WBC (Bld) 57.9 % Normal 47-70 [facility] Comment on above: Performed By: #### L 500.4050, L100.0100 #### [facility] [address] [place], [address] Nucleated RBC (Bld) [#/Vol] 0 10*3/uL Normal 0-5 [facility] Comment on above: Performed By: #### L 500.4050, L100.0100 #### [facility] [address] [place], [address] Platelet mean volume (Bld) [Entitic vol] 10.2 fL Normal 6.2-12.0 [facility] Comment on above: Performed By: #### L 500.4050, L100.0100 #### [facility] [address] [place], [address] Platelets (Bld) [#/Vol] 221 10*3/uL Normal 150-450 [facility] Comment on above: Performed By: #### L 500.4050, L100.0100 #### [facility] [address] [place], [address] RBC (Bld) [#/Vol] 4.79 10*6/uL Normal 4.6-6.2 [facility] Comment on above: Performed By: #### L 500.4050, L100.0100 #### [facility] [address] [place], [address] RDW SD 41.9 fl Normal 35.1-43.9 [facility] Comment on above: Performed By: #### L 500.4050, L100.0100 #### [facility] [address] [place], [address] WBC (Bld) [#/Vol] 7.1 10*3/uL Normal 4.4-11.0 [facility] Comment on above: Performed By: #### L 500.4050, L100.0100 #### [facility] [address] [place], [address] Comprehensive Metabolic Prof [facility] 10-19-2023 Albumin [Mass/Vol] 3.8 g/dL Normal 3.2-5.0 [facility] Comment on above: Performed By: #### L 500.4050, L100.0100 #### [facility] [address] [place], [address] Albumin/Globulin [Mass ratio] 1.0 {ratio} Normal 0.9-2.4 [facility] Comment on above: Performed By: #### L 500.4050, L100.0100 #### [facility] [address] [place], [address] ALK P 84 U/L Normal 45-117 [facility] Comment on above: Performed By: #### L 500.4050, L100.0100 #### [facility] [address] [place], [address] ALT [Catalytic activity/Vol] 35 U/L Normal 16-61 [facility] Comment on above: Performed By: #### L 500.4050, L100.0100 #### [facility] [address] [place], [address] AST [Catalytic activity/Vol] 25 U/L Normal 15-37 [facility] Comment on above: Performed By: #### L 500.4050, L100.0100 #### [facility] [address] [place], [address] Bilirubin [Mass/Vol] 0.50 mg/dL Normal 0.20-1.00 [facility] Comment on above: Result Comment: For patients on eltrombopag therapy, use of Dimension [place] TBIL is not recommended. Performed By: #### L 500.4050, L100.0100 #### [facility] [address] [place], [address] BUN/CRE 16.0 RATIO Normal 10-20 [facility] Comment on above: Performed By: #### L 500.4050, L100.0100 #### [facility] [address] [place], [address] CA,Total 9.7 mg/dL Normal 8.5-10.1 [facility] Comment on above: Performed By: #### L 500.4050, L100.0100 #### [facility] [address] [place], [address] Chloride [Moles/Vol] 105 mmol/L Normal 98-107 [facility] Comment on above: Performed By: #### L 500.4050, L100.0100 #### [facility] [address] [place], [address] CO2 [Moles/Vol] 26.0 mmol/L Normal 21.0-32.0 [facility] Comment on above: Performed By: #### L 500.4050, L100.0100 #### [facility] [address] [place], [address] Creatinine [Mass/Vol] 1.00 mg/dL Normal 0.70-1.30 [facility] Comment on above: Result Comment: The validity of the calculated GFR GFRAA in patients over 70 years has not been determined. Clinical correlation is essential. Performed By: #### L 500.4050, L100.0100 #### [facility] [address] [place], [address] EST GFR - AA 100 mL/min Normal >60 [facility] Comment on above: Result Comment: Afri can [place] GFR Calc Performed By: #### L 500.4050, L100.0100 #### [facility] [address] [place], [address] GAP 7 Normal 5-15 [facility] Comment on above: Performed By: #### L 500.4050, L100.0100 #### [facility] [address] [place], [address] GFR/1.73 sq M.predicted among non-blacks MDRD (S/P/Bld) [Vol rate/Area] 83 mL/min/{1.73_m2} Normal >60 [facility] Comment on above: Result Comment: Non- GFR Calc Performed By: #### L 500.4050, L100.0100 #### [facility] [address] [place], [address] Globulin (S) [Mass/Vol] 4.0 g/dL Normal 2.2-4.2 [facility] Comment on above: Performed By: #### L 500.4050, L100.0100 #### [facility] [address] [place], [address] Glucose [Mass/Vol] 93 mg/dL Normal 74-106 [facility] Comment on above: Performed By: #### L 500.4050, L100.0100 #### [facility] [address] [place], [address] Potassium [Moles/Vol] 4.5 mmol/L Normal 3.5-5.1 [facility] Comment on above: Performed By: #### L 500.4050, L100.0100 #### [facility] [address] [place], [address] Sodium [Moles/Vol] 138 mmol/L Normal 136-145 [facility] Comment on above: Performed By: #### L 500.4050, L100.0100 #### [facility] [address] [place], [address] T PROT 7.8 g/dL Normal 6.4-8.2 [facility] Comment on above: Performed By: #### L 500.4050, L100.0100 #### [facility] [address] [place], [address] Urea nitrogen [Mass/Vol] 16 mg/dL Normal 7-18 [facility] Comment on above: Performed By: #### L 500.4050, L100.0100 #### [facility] [address] [place], [address] Absolute lymphocyte countOrd ered By: Mandi Ambriz on 05-07-2023 Lymphocytes Auto (Unsp spec) [#/Vol] 2.68 10*3/uL 0.83-4.51 [facility] Automated lymphocyte count a s percentage of total leukocytesOrdered By: Manid Ambriz on 05-07-2023 Lymphocytes/100 WBC Auto (Unsp spec) 34.8 % 19-41 [facility] Basophil percentageOrdered B y: Mandi Ambriz on 05-07-2023 Basophils/100 WBC (Bld) 0.9 % 0-1 [facility] Bilirubin [Mass/Vol] 0.50 mg/dL 0.20-1.00 [facility] Comment on above: For patients on eltr ombopag therapy, use of Dim[place] TBIL is not recommended. Chloride [Moles/Vol] 106 mmol/L 98-107 [facility] Eosinophils/100 WBC (Bld) 3.8 % 0-5 [facility] Glucose [Mass/Vol] 108 mg/dL 74-106 [facility] Comment on above: Fasting Glucose resu lt from 100 to 125 mg/dL suggests IMPAIRED HOMEOSTASIS per A.D.A. criteria. Hemoglobin (Bld) [Mass/Vol] 14.2 g/dL 13.0-16.5 [facility] Monocytes/100 WBC (Bld) 7.8 % 0-10 [facility] Neutrophils (Bld) [#/Vol] 4.0 10*3/uL 2.0-7.7 [facility] Neutrophils/100 WBC (Bld) 52.2 % 47-70 [facility] Potassium [Moles/Vol] 3.7 mmol/L 3.5-5.1 [facility] Protein [Mass/Vol] 7.9 g/dL 6.4-8.2 [facility] Sodium [Moles/Vol] 139 mmol/L 136-145 [facility] WBC (Bld) [#/Vol] 7.7 10*3/uL 4.4-11.0 [facility] Determination of erythrocyte mean corpuscular volume (MCV)Ordered By: Mandi Ambriz on 05-07-2023 MCV (RBC) [Entitic vol] 90.6 fL 80-94 [facility] Erythrocyte distribution wid th ratioOrdered By: Mandi Ambriz on 05-07-2023 Erythrocyte distribution width (RBC) [Ratio] 12.8 % 11.6-14.6 [facility] Erythrocyte distribution wid th standard deviationOrdered By: Mandi Ambriz on 05-07-2023 Erythrocyte distribution width (RBC) [Entitic vol] 42.5 fL 35.1-43.9 [facility] Hematocrit Auto (Bld) [Volum e fraction]Ordered By: Mandi Ambriz on 05-07-2023 Hematocrit (Bld) [Volume fraction] 44.1 % 40-54 [facility] Immature granulocytes/100 WB C Auto (Bld)Ordered By: Mandi Ambriz on 05-07-2023 Immature granulocytes/100 WBC (Bld) 0.500 % 0.0-0.9 [facility] Comment on above: IG% - Immature Granu locytes (promyelocytes, myelocytes and metamyelocytes) > 1% indicates that a LEFT SHIFT is Present. Laboratory - Chemistry and C hemistry - challengeOrdered By: Mandi Ambriz on 05-07-2023 Albumin/Globulin [Mass ratio] 1.0 {ratio} 0.9-2.4 [facility] ALP [Catalytic activity/Vol] 78 U/L 45-117 [facility] ALT [Catalytic activity/Vol] 35 U/L 16-61 [facility] CO2 [Moles/Vol] 28.0 mmol/L 21.0-32.0 [facility] Globulin (S) [Mass/Vol] 3.9 g/dL 2.2-4.2 [facility] Urea nitrogen/Creatinine [Mass ratio] 17.1 mg/mg 10-20 [facility] - Hematology and Cell countsOrdered By: Mandi Ambriz on 05-07-2023 MCH (RBC) [Entitic mass] 29.2 pg 27.0-32.0 [facility] MCHC (RBC) [Mass/Vol] 32.2 g/dL 32-36 [facility] Nucleated RBC/100 WBC (Bld) [Ratio] 0 % 0-5 [facility] Platelet mean volume (Bld) [Entitic vol] 10.2 fL 6.2-12.0 [facility] Platelets (Bld) [#/Vol] 274 10*3/uL 150-450 [facility] No Panel InformationOrdered By: Mandi Ambriz on 05-07-2023 Estimated GFR (MDRD) Amer 108 mL/min >60 [facility] Comment on above: GFR Calc Estimated GFR (MDRD) Non-Af Amer 89 mL/min >60 [facility] Comment on above: Non- GFR Calc RBC Auto (Bld) [#/Vol]Ordere d By: Mandi Ambriz on 05-07-2023 RBC (Bld) [#/Vol] 4.87 10*6/uL 4.6-6.2 [facility] Serum or plasma calcium ruben urement (mass/volume)Ordered By: Mandi Ambriz on 05-07-2023 Calcium [Mass/Vol] 9.3 mg/dL 8.5-10.1 [facility] Serum or plasma creatinine m easurement (mass/volume)Ordered By: Mandi Ambriz on 05-07-2023 Creatinine [Mass/Vol] 0.93 mg/dL 0.70-1.30 [facility] Comment on above: The validity of the calculated GFR & GFRAA in patients over 70 years has not been determined. Clinical correlation is essential. Serum or plasma urea nitroge n measurement (mass/volume)Ordered By: Mandi Ambriz on 05-07-2023 Urea nitrogen [Mass/Vol] 16 mg/dL 7-18 [facility] Thin prep Papanicolaou smear with manual screeningOrdered By: Mandiavinash Ambriz on 05-07-2023 Thin prep Papanicolaou smear with manual screening 4.0 g/dL 3.2-5.0 [facility] Thin prep Papanicolaou smear with manual screening 19 U/L 15-37 [facility] Thin prep Papanicolaou smear with manual screening 5 5-15 [facility] Absolute lymphocyte countOrd ered By: Mandi Ambriz on 01-18-2023 Lymphocytes Auto (Unsp spec) [#/Vol] 1.80 10*3/uL 0.83-4.51 [facility] Basophil percentageOrdered B y: Mandi Ambriz on 01-18-2023 Basophils/100 WBC (Bld) 0.7 % 0-1 [facility] Bilirubin [Mass/Vol] 0.50 mg/dL 0.20-1.00 [facility] Comment on above: For patients on eltr ombopag therapy, use of [place] TBIL is not recommended. Chloride [Moles/Vol] 106 mmol/L 98-107 [facility] Eosinophils/100 WBC (Bld) 1.3 % 0-5 [facility] Glucose [Mass/Vol] 91 mg/dL 74-106 [facility] Neutrophils (Bld) [#/Vol] 4.3 10*3/uL 2.0-7.7 [facility] Neutrophils/100 WBC (Bld) 64.0 % 47-70 [facility] Potassium [Moles/Vol] 4.4 mmol/L 3.5-5.1 [facility] Protein [Mass/Vol] 7.7 g/dL 6.4-8.2 [facility] Sodium [Moles/Vol] 139 mmol/L 136-145 [facility] WBC (Bld) [#/Vol] 6.8 10*3/uL 4.4-11.0 [facility] Blood erythrocytes count (nu mber/volume)Ordered By: Mandi Ambriz on 01-18-2023 RBC (Bld) [#/Vol] 4.97 10*6/uL 4.6-6.2 [facility] Blood hemoglobin measurement (mass/volume)Ordered By: Mandi Ambriz on 01-18-2023 Hemoglobin (Bld) [Mass/Vol] 14.9 g/dL 13.0-16.5 [facility] Blood lymphocytes/100 leukoc ytesOrdered By: Mandi Ambriz on 01-18-2023 Lymphocytes/100 WBC (Bld) 26.5 % 19-41 [facility] Blood monocytes/100 leukocyt esOrdered By: Mandi Ambriz on 01-18-2023 Monocytes/100 WBC (Bld) 7.1 % 0-10 [facility] Blood platelet mean volumeOr dered By: Mandi Ambriz on 01-18-2023 Platelet mean volume (Bld) [Entitic vol] 10.0 fL 6.2-12.0 [facility] Determination of erythrocyte mean corpuscular volume (MCV)Ordered By: Mandiavinash Ambriz on 01-18-2023 MCV (RBC) [Entitic vol] 90.5 fL 80-94 [facility] Hematocrit Auto (Bld) [Volum e fraction]Ordered By: Mandi Ambriz on 01-18-2023 Hematocrit (Bld) [Volume fraction] 45.0 % 40-54 [facility] Laboratory - Chemistry and C hemistry - challengeOrdered By: Mandi Ambriz on 01-18-2023 ALP [Catalytic activity/Vol] 77 U/L 45-117 [facility] ALT [Catalytic activity/Vol] 36 U/L 16-61 [facility] CO2 [Moles/Vol] 26.0 mmol/L 21.0-32.0 [facility] Globulin (S) [Mass/Vol] 3.7 g/dL 2.2-4.2 [facility] Urea nitrogen/Creatinine [Mass ratio] 16.6 mg/mg 10-20 [facility] Laboratory - Hematology and Cell countsOrdered By: Mandi Ambriz on 01-18-2023 Erythrocyte distribution width (RBC) [Entitic vol] 40.3 fL 35.1-43.9 [facility] Erythrocyte distribution width (RBC) [Ratio] 12.3 % 11.6-14.6 [facility] Immature granulocytes/100 WBC (Bld) 0.400 % 0.0-0.9 [facility] Comment on above: IG% - Immature Granu locytes (promyelocytes, myelocytes and metamyelocytes) > 1% indicates that a LEFT SHIFT is Present. MCH (RBC) [Entitic mass] 30.0 pg 27.0-32.0 [facility] Nucleated RBC/100 WBC (Bld) [Ratio] 0 % 0-5 [facility] MCHC Auto (RBC) [Mass/Vol]Or dered By: Mandi Ambriz on 01-18-2023 MCHC (RBC) [Mass/Vol] 33.1 g/dL 32-36 [facility] No Panel InformationOrdered By: Mandi Ambriz on 01-18-2023 Estimated GFR (MDRD) Amer 112 mL/min >60 [facility] Comment on above: GFR Calc Estimated GFR (MDRD) Non-Af Amer 93 mL/min >60 [facility] Comment on above: Non- GFR Calc Platelets bldOrdered By: Natasha Ambriz on 01-18-2023 Platelets (Bld) [#/Vol] 239 10*3/uL 150-450 [facility] Serum or plasma albumin ruben urement (mass/volume)Ordered By: Madni Ambriz on 01-18-2023 Albumin [Mass/Vol] 4.0 g/dL 3.2-5.0 [facility] Serum or plasma albumin/glob ulin mass ratioOrdered By: Mandi Ambriz on 01-18-2023 Albumin/Globulin [Mass ratio] 1.1 {ratio} 0.9-2.4 [facility] Serum or plasma calcium ruben urement (mass/volume)Ordered By: Mandi Ambriz on 01-18-2023 Calcium [Mass/Vol] 9.3 mg/dL 8.5-10.1 [facility] Serum or plasma creatinine m easurement (mass/volume)Ordered By: Mandi Ambriz on 01-18-2023 Creatinine [Mass/Vol] 0.90 mg/dL 0.70-1.30 [facility] Comment on above: The validity of the calculated GFR & GFRAA in patients over 70 years has not been determined. Clinical correlation is essential. Serum or plasma urea nitroge n measurement (mass/volume)Ordered By: Mandi Ambriz on 01-18-2023 Urea nitrogen [Mass/Vol] 15 mg/dL 7-18 [facility] Thin prep Papanicolaou smear with manual screeningOrdered By: Mandiavinash Ambriz on 01-18-2023 Thin prep Papanicolaou smear with manual screening 24 U/L 15-37 [facility] Thin prep Papanicolaou smear with manual screening 7 5-15 [facility] Absolute lymphocyte counton 02-12-2022 Lymphocytes Auto (Unsp spec) [#/Vol] 2.11 10*3/uL 0.83-4.51 [facility] Work Phone: Basophil percentageon 2021 Basophils/100 WBC (Bld) 1.0 % 0-1 [facility] Work Phone: Bilirubin [Mass/Vol] 0.50 mg/dL 0.20-1.00 [facility] Work Phone: Comment on above: For patients on eltr ombopag therapy, use of Dimension [place] TBIL is not recommended. Chloride [Moles/Vol] 104 mmol/L 98-107 [facility] Work Phone: Eosinophils/100 WBC (Bld) 3.1 % 0-5 [facility] Work Phone: Glucose [Mass/Vol] 132 mg/dL 74-106 [facility] Work Phone: Comment on above: Fasting Glucose resu lt greater than or equal to 126 mg/dL suggests DIABETES MELLITUS per A.D.A. criteria. Neutrophils (Bld) [#/Vol] 3.2 10*3/uL 2.0-7.7 [facility] Work Phone: Neutrophils/100 WBC (Bld) 53.2 % 47-70 [facility] Work Phone: Potassium [Moles/Vol] 4.1 mmol/L 3.5-5.1 [facility] Work Phone: Protein [Mass/Vol] 7.6 g/dL 6.4-8.2 [facility] Work Phone: Sodium [Moles/Vol] 140 mmol/L 136-145 [facility] Work Phone: WBC (Bld) [#/Vol] 6.1 10*3/uL 4.4-11.0 [facility] Work Phone: Blood erythrocytes count (nu mber/volume)on 02-12-2022 RBC (Bld) [#/Vol] 5.21 10*6/uL 4.6-6.2 [facility] Work Phone: Blood hemoglobin measurement (mass/volume)on 02-12-2022 Hemoglobin (Bld) [Mass/Vol] 15.3 g/dL 13.0-16.5 [facility] Work Phone: Blood lymphocytes/100 leukoc yteson 02-12-2022 Lymphocytes/100 WBC (Bld) 34.8 % 19-41 [facility] Work Phone: Blood monocytes/100 leukocyt eson 02-12-2022 Monocytes/100 WBC (Bld) 7.4 % 0-10 [facility] Work Phone: Blood platelet mean volumeon 02-12-2022 Platelet mean volume (Bld) [Entitic vol] 9.7 fL 6.2-12.0 [facility] Work Phone: Determination of erythrocyte mean corpuscular volume (MCV)on 02-12-2022 MCV (RBC) [Entitic vol] 88.9 fL 80-94 [facility] Work Phone: Hematocrit Auto (Bld) [Volum e fraction]on 02-12-2022 Hematocrit (Bld) [Volume fraction] 46.3 % 40-54 [facility] Work Phone: [phone] Laboratory - Chemistry and C hemistry - challengeon 02-12-2022 ALP [Catalytic activity/Vol] 81 U/L 45-117 [facility] Work Phone: [phone] ALT [Catalytic activity/Vol] 34 U/L 16-61 [facility] Work Phone: [phone] CO2 [Moles/Vol] 29.0 mmol/L 21.0-32.0 [facility] Work Phone: [phone] Globulin (S) [Mass/Vol] 3.5 g/dL 2.2-4.2 [facility] Work Phone: [phone] Urea nitrogen/Creatinine [Mass ratio] 19.0 mg/mg 10-20 [facility] Work Phone: [phone] Laboratory - Hematology and Cell countson 02-12-2022 Erythrocyte distribution width (RBC) [Entitic vol] 40.6 fL 35.1-43.9 [facility] Work Phone: [phone] Erythrocyte distribution width (RBC) [Ratio] 12.5 % 11.6-14.6 [facility] Work Phone: [phone] Immature granulocytes/100 WBC (Bld) 0.500 % 0.0-0.9 [facility] Work Phone: [phone] Comment on above: IG% - Immature Granu locytes (promyelocytes, myelocytes and metamyelocytes) > 1% indicates that a LEFT SHIFT is Present. MCH (RBC) [Entitic mass] 29.4 pg 27.0-32.0 [facility] Work Phone: [phone] Nucleated RBC/100 WBC (Bld) [Ratio] 0 % 0-5 [facility] Work Phone: [phone] MCHC Auto (RBC) [Mass/Vol]on 02-12-2022 MCHC (RBC) [Mass/Vol] 33.0 g/dL 32-36 [facility] Work [facility]: No Panel Informationon 02-12 Estimated GFR (MDRD) Amer 95 mL/min >60 [facility] Work Phone: Comment on above: GFR Calc Estimated GFR (MDRD) Non-Af Amer 78 mL/min >60 [facility] Work Phone: Comment on above: Non- GFR Calc Platelets bldon 02-12-2022 Platelets (Bld) [#/Vol] 252 10*3/uL 150-450 [facility] Work Phone: Serum or plasma albumin ruben urement (mass/volume)on 02-12-2022 Albumin [Mass/Vol] 4.1 g/dL 3.2-5.0 [facility] Work Phone: Serum or plasma albumin/glob ulin mass ratioon 02-12-2022 Albumin/Globulin [Mass ratio] 1.2 {ratio} 0.9-2.4 [facility] Work Phone: Serum or plasma calcium ruben urement (mass/volume)on 02-12-2022 Calcium [Mass/Vol] 9.7 mg/dL 8.5-10.1 [facility] Work Phone: Serum or plasma creatinine m easurement (mass/volume)on 02-12-2022 Creatinine [Mass/Vol] 1.05 mg/dL 0.70-1.30 [facility] Work Phone: Comment on above: The validity of the calculated GFR & GFRAA in patients over 70 years has not been determined. Clinical correlation is essential. Serum or plasma urea nitroge n measurement (mass/volume)on 02-12-2022 Urea nitrogen [Mass/Vol] 20 mg/dL 7-18 [facility] Work Phone: Thin prep Papanicolaou smear with manual screeningon 02-12-2022 Thin prep Papanicolaou smear with manual screening 19 U/L 15-37 [facility] Work Phone: [phone] Thin prep Papanicolaou smear with manual screening 7 5-15 [facility] Work Phone: Brent 02-16-2019 CN Office Visit (UCWSTR ) LYN SANCHEZ ([id number]) 1970 M Date Time Provider Department 02/16/19 12:30 PM [facility]ALEZ[facility] During your visit today, we recorded the [...] Dark urine. Chest pain. Copyright 1994 by [employer] Referring Provider: SELF [200] Allergies As of Date: 02/16/2019 (No Known Allergies) Date Reviewed: 02/16/2019 Reviewed by: Jenny Waldron Ma - Fully Assessed Reason for Visit: Cough [28] Cmt: nasal congestion and drainage x 5 days Primary Visit Diagnosis:Viral URI with cough [J06.9, B97.89] Other Visit Diagnosis:Sore throat [J02.9] Order(s):RAPID STREP TEST B/O [[id number]] Order #: [id number] Prescriptions as of 02/16/2019 Sig: PLAQUENIL ORAL [...] urine. Chest pain. Copyright 1993 by [employer] Encounter Status:Closed by HEMANTH MORALEZ on 02/16/[address] [facility] PROGRESSon 02-16-2019 PROGRESS HNO ID: [id number] Author: Hemanth Moralez (Pa) Service: ? Author Type: Physician Pilates Instructor Type: Progress Notes Filed: 02/16/2019 2:30 PM [...] with the plan. Hemanth Moralez PA-C [facility] CNOVon 04-28-2018 CNOV Office Visit (UCWSTR ) LYN SANCHEZ ([id number]) 1970 Date Time Provider Department 04/28/18 10:00 AM LAURA COSBY [facility] During your visit today, we recorded the following information about you: Temperature Pulse Respiration Blood pressure 98.5 degrees 89/minute 18/minute 100/70 Weight 132.5 kg Laura Cosby APRN.[employer] MEDIA SPECIALIST 04/28/2018 10:38 AM Signed [facility] PATIENT [...] to anyone within 6 feet. Laura Cosby APRN.[employer] MEDIA SPECIALIST 04/28/2018 10:59 AM Signed Subjective HPI Pt [...] HISTORY Procedure Laterality Date - APPENDECTOMY 1990 [facility] ALLERGIES Patient has no known allergies. [...] fever cause [R50.9] Order(s):XR CHEST 2V FRONTAL/LAT [[id number]] Order #: [id number] FUTURE predniSONE (DELTASONE) 20 mg tabletTake 2 [...] Status:Closed by LAURA COSBY CNP on 04/28/18 [facility] PROGRESSon 04-28-2018 PROGRESS HNO ID: [id number] Author: Laura Cosby Service: (none) Author Type: [...] HISTORY Procedure Laterality Date - APPENDECTOMY 1990 [facility] ALLERGIES Patient has no known allergies. [...] plan of care. Laura Cosby CNP [facility] PROGRESS HNO ID: [id number] Author: Olesya Alvarez (Rt) Neftali Elizalde Service: (none) Author Type: Publication Designer Type: Progress Notes Filed: 04/28/2018 10:16 AM [...] Ebonie April 28, 2018 10:[address] [facility] XR CHEST 2V FRONTAL/LATon XR CHEST [...] Other: . IMPRESSION: No acute radiographic abnormality. Embroidery Designer: AMOL Transcribe Date/Time: Apr 28 2018 10:18A Dictated by : AMALIA ROJAS MD This examination was interpreted and the report reviewed and electronically signed by: AMALIA ROJAS MD on Apr 28 2018 10:20AM EST [id number] [facility] Encounters Encounter Date Encounter Type Care Provider Facility Start: 05-08-2024 End: 05-08-2024 ambulatory Hemanth Marshall NP-C Work Phone: [facility] Work Phone: Start: 05-08-2024 End: 05-08-[address] Mandi Ambriz MD -Laboratory, [facility] Work Phone: Start: 05-08-2024 End: 05-08-2024 ambulatory Mandi Ambriz Facility:[facility] Start: 12-24-2023 Encounter for genera l adult medical examination with [facility] Start: 11-29-2023 End: 11-29-2023 [facility] Start: 10-19-2023 End: 10-19-2023 ambulatory [facility] Facility:[facility] Start: 05-07-2023 End: 05-07-2023 ambulatory [facility] Work Phone: Start: 05-07-2023 End: 05-07-2023 [facility] Start: 01-18-2023 End: 01-18-2023 ambulatory [facility] Work Phone: Start: 01-18-2023 End: 01-18-2023 [facility] Start: 10-28-2022 End: 10-28-2022 Patient encounter procedure [facility] Work Phone: Start: 02-12-2022 End: 02-12-2022 ambulatory [facility] Work Phone: Start: 02-12-2022 End: 02-12-2022 [facility] Payers Date Payer Category Payer Self-pay [id number] 2014 Unknown [id number] Unknown [facility] P[employer] [employer] [id number] Unknown [id number] Unknown [id number] Unknown [id number] Social History Date Type Detail Facility [facility] Start: 03-29-2020 Non-smoker [facility] Start: 1970 Sex Assigned At Male [facility] Start: 04-16-2020 Tobacco smoking stat [facility] Never smoked tobacco (finding) [facility] Start: 05-19-2024 Sex Male (finding) [facility] Evaluation note Note Date & Type Note Facility Evaluation note No assessment information availa ble [facility] Work Phone: Reason for referral (narrative) Note Date & Type Note Facility Reason for referral (narrative) No reason for referral information available [facility] Work Phone: Summary Purpose Family History Relationship Condition Age at Onset Recorded Date/T helga mother Malignant neoplasm Unknown Diabetes mellitus Unknown father Malignant neoplasm Unknown Hypertension Unknown High blood cholesterol Unknown Malignant neoplasm of skin Unknown Advance Directives Advance Directive Response Recorded Date/ Time Living Will No March 29 3:28pm Power of Greenhouse Laborer No March 29, 2020 3:28pm Chief Complaint and Reason for Visit Chief Complaint PAIN- COPY PCP Chief Complaint INSOMNIA, SNORING, F ATIGUE Chief Complaint Admit Date PAIN- COPY PCP May 08, 2024 9:10 am Additional Source Comments (unrecognized sect ion and content) No Status Records FoundNo Status Records Found INFORMATION SOURCE (unrecogn ized section and content) DATE CREATED AUTHOR 02/16/2019 [facility] DATE CREATED AUTHOR AUTHOR'S ORGANIZ ATION 05/22/2024 [facility] Goals (unrecognized section and content) Goals may [...] Member Role Status Dates Hemanth Rolando , FREEZER WORKER-C Primary Care Provider Active Dr. Mandi Ambriz [...] BE BASED ON THE PRIMARY CLINICAL RECORDS. [facility] [employer] provides no warranty or guarantee of the accuracy or completeness of information in this document.
[2024-10-13 10:36] LABS: Hematocrit 39.8 % (40-54); Hemoglobin 13.1 g/dL (13.0-16.5); Immature Granulocytes Count 0.060 X10^3/uL (0.0-0.0); Mean Corp Hgb Conc 32.9 g/dL (32-36); Mean Corpuscular Volume 90.5 fL (80-94); Mean Platelet Vol. 10.1 fl (6.2-12.0); NRBC Flagged by Analyzer 0 % (0-5); Platelet Count 228 K/mm3 (150-450); RBC Distribution Width CV 12.7 % (11.6-14.6); RBC Distribution Width SD 41.8 fl (35.1-43.9); Red Blood Count 4.40 M/mm3 (4.6-6.2); White Blood Count 5.7 K/mm3 (4.4-11.0)
[2024-10-13 11:35] LABS: AST(SGOT) 24 U/L (<=37); Alanine Aminotransfer ALT/SGPT 27 U/L (<=46); Albumin, Serum 4.2 g/dL (3.5-5.0); Alkaline Phosphatase 83 U/L (40-129); Anion Gap 11 (5-15); BUN 26 mg/dL (4-19); BUN/Creat Ratio 26.1 RATIO (10-20); Calcium,Total 9.8 mg/dL (7.6-11.0); Carbon Dioxide 23.0 mmol/L (21.0-32.0); Chloride 107 mmol/L (98-108); Globulin 2.8 g/dL (2.2-4.2); Glucose 99 mg/dL (70-99); Potassium 4.9 mmol/L (3.3-5.1)
== END | disposition home or self-care (01) ==
PROVIDERS: PCP Nurse Practitioner Family; Referring Provider Internal Medicine Rheumatology; Visit Provider Internal Medicine Rheumatology
DX: M06.4 Inflammatory polyarthropathy (principal); Z79.899 Other long term (current) drug therapy
CPT/HCPCS: 36415; 80053; 85025

== ENCOUNTER → 2024-12-05 | Outpatient (CLI) | payer OTHER, SELFPAY ==
[2024-12-05 10:22] LABS: Hematocrit 38.0 % (40-54); Hemoglobin 12.8 g/dL (13.0-16.5); Immature Granulocytes Count 0.020 X10^3/uL (0.0-0.0); Mean Corp Hgb Conc 33.7 g/dL (32-36); Mean Corpuscular Volume 89.2 fL (80-94); Mean Platelet Vol. 9.7 fl (6.2-12.0); NRBC Flagged by Analyzer 0 % (0-5); Platelet Count 228 K/mm3 (150-450); RBC Distribution Width CV 12.6 % (11.6-14.6); RBC Distribution Width SD 41.1 fl (35.1-43.9); Red Blood Count 4.26 M/mm3 (4.6-6.2); White Blood Count 5.6 K/mm3 (4.4-11.0)
[2024-12-05 11:09] LABS: AST(SGOT) 27 U/L (<=37); Alanine Aminotransfer ALT/SGPT 24 U/L (<=46); Albumin, Serum 4.1 g/dL (3.5-5.0); Alkaline Phosphatase 72 U/L (40-129); Anion Gap 12 (5-15); BUN 21 mg/dL (4-19); BUN/Creat Ratio 22.6 RATIO (10-20); Calcium,Total 9.4 mg/dL (7.6-11.0); Carbon Dioxide 22.5 mmol/L (21.0-32.0); Chloride 106 mmol/L (98-108); Cholesterol 184 mg/dL (<=200); Ferritin 323 ng/mL (37-417); Globulin 2.9 g/dL (2.2-4.2); Glucose 101 mg/dL (70-99); Low Density Lipoprotein Calc. 101 mg/dL; PSA,Total - Annual Screen 0.44 ng/mL (0.02-4.00); Potassium 4.4 mmol/L (3.3-5.1); Triglycerides 152 mg/dL; Very Low Density Lipoprotein 30 mg/dL (5-40); Vitamin B12 454 pg/mL (180-914); Vitamin D,25 Hydroxy 17.4 ng/mL (30-100); cholesterol:hdl ratio screen 3.50
[2024-12-05 11:24] LABS: Iron 83 ug/dL (65-175)
[2024-12-10 15:07] LABS: Testosterone, % Free 2.95 % (1.50-4.20); Testosterone, Free 2.80 ng/dL (5.00-21.00)
== END | disposition home or self-care (01) ==
LOC: MTLAB 07:37
PROVIDERS: PCP Nurse Practitioner Family; Referring Provider Nurse Practitioner Family; Visit Provider Nurse Practitioner Family
DX: Z00.01 Encounter for general adult medical examination with abnormal findings (principal); Z12.5 Encounter for screening for malignant neoplasm of prostate; E29.1 Testicular hypofunction; R53.83 Other fatigue
CPT/HCPCS: 36415; 80053; 80061; 82306; 82607; 82728; 83540; 84153; 84402; 84403; 84439; 84443; 85025; G0103

== ENCOUNTER → 2025-02-23 | Outpatient (CLI) | payer OTHER, SELFPAY | END | disposition home or self-care (01) | PROVIDERS: PCP Nurse Practitioner Family; Visit Provider Nurse Practitioner Family | DX: Z00.01 Encounter for general adult medical examination with abnormal findings (principal); E29.1 Testicular hypofunction; Z12.5 Encounter for screening for malignant neoplasm of prostate ==